=== PATIENT | male | born 1945 | race Caucasian/White ===

== ENCOUNTER 2022-03-27 08:41 | Outpatient (CLI) | payer MEDICARE, BC, SELFPAY | END 2022-03-27 08:42 | disposition home or self-care (01) | LOC: AMB 03-28 11:16 | PROVIDERS: PCP Family Medicine; Visit Provider Family Medicine | DX: R05.9 Cough, unspecified (principal) | CPT/HCPCS: A0425; A0427 ==

== ENCOUNTER 2024-01-20 06:52 | Emergency (ER) | payer MEDICARE, BC, SELFPAY ==
[2024-01-20 06:58] VITALS: BP 142/85; PULSE 78; RESP 18; TEMP 36.7; O2SAT 99; BMI 26.5
--- NOTE | 2024-01-20 07:07 | ED.GENADULT ---
HPI - General Adult General Chief complaint: Epistaxis/Nosebleed Stated complaint: Nose bleed Time Seen by Provider: 01/20/24 07:07 History of Present Illness HPI narrative: CC: Bilateral Nose Bleeds pt. with non traumatic nose bleed that started around 2300 last night . does have nose plugs in both nostrils. denies dizziness/ lightheadedness . 78-year-old man presenting to the emergency department with concern of nose bleed. Is anticoagulated with Coumadin. He is not feeling lightheaded or nauseated. No shortness of breath. Does not typically have trouble with nosebleeds. Has been using rolled up tissue in his nose. Has been bleeding on and off for about 7 hours now. Has not been able to sleep. Related Data Home Medications ?Medication ?Instructions ?Recorded ?Confirmed allopurinol 100 mg tablet 100 mg PO DAILY 01/20/24 01/20/24 dapagliflozin propanediol 5 mg 5 mg PO DAILY 01/20/24 01/20/24 tablet (Farxiga) losartan 25 mg tablet 25 mg PO DAILY 01/20/24 01/20/24 metoprolol succinate 100 mg 100 mg PO DAILY 01/20/24 01/20/24 tablet,extended release 24 hr potassium chloride 20 mEq 20 meq PO DAILY 01/20/24 01/20/24 tablet,extended release(part/cryst) rosuvastatin 10 mg tablet 10 mg PO HS 01/20/24 01/20/24 sertraline 50 mg tablet 50 mg PO DAILY 01/20/24 01/20/24 spironolactone 25 mg tablet 25 mg PO DAILY 01/20/24 01/20/24 torsemide 10 mg tablet 10 mg PO DIRECTED PRN 01/20/24 01/20/24 torsemide 5 mg tablet 5 mg PO DAILY 01/20/24 01/20/24 Previous Rx's ?Medication ?Instructions ?Recorded warfarin 2 mg tablet 2 mg PO QDAY #114 tabs 09/27/21 Allergies Allergy/AdvReac Type Severity Reaction Status Date / Time morphine Allergy Mild itchy Verified 01/20/24 07:04 latex Allergy Unknown Verified 01/20/24 07:04 OXYCODONE-ACETAMINOPHEN Allergy Intermediate increased Uncoded 09/27/21 11:51 anxiety Pain Meds AdvReac Mild anxious Uncoded 09/27/21 11:51 Review of Systems Status of ROS: Reports: 6 or more systems reviewed and unremarkable except as noted in History and below [facility] Medical History History of fracture of left ankle (2000) ?Z87.81 - Personal history of (healed) traumatic fracture (ICD-10) History of basal cell carcinoma (BCC) (07/17/18) ?Z85.828 - Personal history of other malignant neoplasm of skin (ICD-10) Surgical History History of umbilical hernia repair (04/15/15) ?Z98.890 - Other specified postprocedural states (ICD-10) ?Z87.19 - Personal history of other diseases of the digestive system (ICD-10) History of mitral valve repair (12/30/20) ?Z98.890 - Other specified postprocedural states (ICD-10) History of cholecystectomy ?Z90.49 - Acquired absence of other specified parts of digestive tract (ICD-10) Social History Smoking Status: Never smoker Second hand tobacco smoke exposure: No How often do you have a drink containing alcohol: never AUDIT-C Alcohol total score: 0 Non-prescribed substance use: denies use Exam Narrative: Exam Narrative: Pleasant. NAD. There is dried blood on his face and shirt. 2 rolled up tissue tampons placed; 1 each nostril. Oropharynx shows relatively fresh blood in posterior oropharynx. Removal of tampons cells left greater than right septum oozing. Difficult to assess clearly location. I think anterior. Const: Vital Signs, click to edit/add: Vital Signs - 24 hr 01/20/24 06:58 Temperature 98.0 F Pulse Rate [Right Pulse Oximeter] 78 Respiratory Rate 18 Blood Pressure [Ri ght Upper Arm] 142/85 H Pulse Oximetry 99 Oxygen Delivery Me thod Room Air Documenting provider has reviewed patient's vital signs: yes Course Vital Signs Vital signs: Initial Vital Signs Temperature 98.0 F 01/20/24 06:58 Temperature Source Temporal Artery Scan 01/20/24 06:58 Pulse Rate 78 01/20/24 06:58 Respiratory Rate 18 01/20/24 06:58 Blood Pressure 142/85 H 01/20/24 06:58 Blood Pressure Mean 104 01/20/24 06:58 Blood Pressure Position Sitting 01/20/24 06:58 Pulse Oximetry 99 01/20/24 06:58 Oxygen Delivery Method Room Air 01/20/24 06:58 Vital Signs Temperature 98.0 F 01/20/24 06:58 Pulse Rate 78 01/20/24 06:58 Respiratory Rate 18 01/20/24 06:58 Blood Pressure 142/85 H 01/20/24 06:58 Pulse Oximetry 99 01/20/24 06:58 Oxygen Delivery Method Room Air 01/20/24 06:58 Temperature 98.0 F 01/20/24 06:58 Pulse Rate 78 01/20/24 06:58 Respiratory Rate 18 01/20/24 06:58 Blood Pressure 142/85 H 01/20/24 06:58 Pulse Oximetry 99 01/20/24 06:58 Oxygen Delivery Method Room Air 01/20/24 06:58 Medications Administered Medications: Discontinued Medications Generic Name Dose Route Start Last Admin Trade Name Fide PRN Reason Stop Dose Admin Cocaine HCl 4 ml 01/20/24 07:11 01/20/24 07:49 Cocaine Hcl 4 % 4 Ml Solution NOSTRIL-B 01/20/24 07:12 4 ml ONCE ONE Administration Medical Decision Making MDM Narrative Medical decision making narrative: Placed cocaine soaked cotton balls into each nostril and with reassessment there is some broad erosion on the anterior left nasal septum and maybe a point of bleeding on the right side. Think would be best to place a Merocel packing. Placed cut down Merocel packing in the left nostril. Placed 1 more temporary cotton ball in the right. With reassessment I think bleeding has been controlled. Is not collecting quickly in the posterior oropharynx at least. Hemoglobin is good and INR however is subtherapeutic. Will adjust Coumadin dosing -- see discharge. All tolerated quite well. Given cotton balls and nose clamp on departure. See patient discharge plan for further discussion Lab Data Lab results reviewed: Yes I reviewed the patient's lab results Labs: Lab Results 01/20/24 Range/Units 07:50 Hgb 15.9 (13.5-17.5) gm/dL INR 1.29 H (0.91-1.10) Discharge Plan Discharge Clinical Impression: Epistaxis, Anticoagulated Additional Instructions: Your INR goal is 2-3. Today your INR is 1.3. If you have been taking your Coumadin regularly at 2 mg daily, please take an extra 2 mg for total of 4 mg this evening and continue taking 2 mg daily and recheck your INR in 1 week. Can remove this left side nasal packing in 3 days usually in a clinic visit. Can remove the cotton ball from the right side tomorrow. During the time that you have this kind of packing in, recommendations are often to take antibiotics to prevent secondary infection. Can belt picker some amoxicillin from [facility] in the lobby. Once you are through this recent bleeding problem, consider placing the white petroleum jelly I gave you into your nose to keep your nose moist through the winter. Otherwise consider sleeping under the mist of a cool mist humidifier. Prescriptions: No Action allopurinol 100 mg tablet 100 mg PO DAILY Patient Comments: TAKE TWO TABLETS BY MOUTH DAILY* dapagliflozin propanediol [Farxiga] 5 mg tablet 5 mg PO DAILY Patient Comments: TAKE ONE TABLET BY MOUTH ONE TIME DAILY* losartan 25 mg tablet 25 mg PO DAILY Patient Comments: [NO ORIGINAL SIG] metoprolol succinate 100 mg tablet extended release 24 hr 100 mg PO DAILY Patient Comments: [NO ORIGINAL SIG] potassium chloride 20 mEq tablet,ER particles/crystals 20 meq PO DAILY Patient Comments: TAKE 1/2 TABLET BY MOUTH DAILY rosuvastatin 10 mg tablet 10 mg PO HS Patient Comments: [NO ORIGINAL SIG] sertraline 50 mg tablet 50 mg PO DAILY Patient Comments: [NO ORIGINAL SIG] spironolactone 25 mg tablet 25 mg PO DAILY Patient Comments: TAKE ONE TABLET BY MOUTH EVERY DAY IN THE MORNING.* torsemide 10 mg tablet 10 mg PO DIRECTED PRN Patient Comments: TAKE ONE TABLET BY MOUTH DAILY NEEDED FOR WEIGHT GAIN OF 3LBS OVERNIGHT OR 5LBS OVER THE COURSE OF A WEEK torsemide 5 mg tablet 5 mg PO DAILY Patient Comments: [NO ORIGINAL SIG] warfarin 2 mg tablet 2 mg PO QDAY Qty: 114 0RF Protocol: Dose Management Condition: Saturday Dose/Route: 2 % Instruction: 1 x 2 % tablet Condition: Saturday Dose/Route: 4 % Instruction: 2 x 2 % tablets Condition: Saturday Dose/Route: 2 % Instruction: 1 x 2 % tablet Condition: Saturday Dose/Route: 4 % Instruction: 2 x 2 % tablets Condition: Dose/Route: 2 % Instruction: 1 x 2 % tablet Condition: Saturday Dose/Route: 4 % Instruction: 2 x 2 % tablets Condition: Saturday Dose/Route: 2 % Instruction: 1 x 2 % tablet Protocol Text: Adjustment Start Date: Saturday10/02/21 INR Value: 1.8 INR Date: 09/25/21 Recheck Date: 10/16/21 Rx Instructions: Archibald 2 MG, M 2 MG, Tu 4 MG, W 2 MG, Th 4 MG, F 2 MG, Sa 2 MG Follow Up/Referrals: Galen Flores MD [Staff Physician] - Stand Alone Forms: [employer] Info Instructions
[2024-01-20] MEDS: COCAINE HCL 4 % 4 ML SOLUTION NOSTRIL-B (07:49)
--- NOTE | 2024-01-20 07:50 | ED.NURSE ---
Cocaine HCL administered by Dr. Duke.
[2024-01-20 07:57] LABS: Hemoglobin* 15.9 gm/dL (13.5-17.5)
[2024-01-20 08:18] LABS: INR 1.29 (0.91-1.10); Prothrombin Time 16.9 Seconds
== END 2024-01-20 09:01 | disposition home or self-care (01) ==
PROVIDERS: Emergency Provider Family Medicine; PCP Internal Medicine
DX: R04.0 Epistaxis (principal); Z79.01 Long term (current) use of anticoagulants
CPT/HCPCS: 36415; 85018; 85610; 99283; 99284; A9270

== ENCOUNTER 2024-06-10 15:56 | Inpatient (IN) | payer MEDICARE, BC, SELFPAY ==
--- OUTSIDE RECORDS SUMMARY | 2024-06-10 15:58 | XMS_ITS | Continuity of Care Document ---
Author Organization [facility] Address [address] [address] [place] [address] Phone Care Team Providers Care Actuarial Internship Name Role Phone Jake Wiggins MD Unavailable Unavailable Procedures Procedure Date Init Hosp-da E&m Mod Severity 1 Advance Directives Directive Yes / No Effective Date File Name No Information Encounters Encounter Description Practice Location Reason(s) For Visit Diagnoses Date Provider Providers Copied on Encounter [facility], [address] [address], [place], [place], [id number], [place] tel:[phone] [facility] No Information 3 Feliciano Joseph. [address] [place] [address], [address], [id number] , [place]. [phone] [facility], [address] [address], [place], [place], [id number], [place] tel:[phone] [facility] Pancreas cyst 1 Jeana Oconnell. [address] [place] [address], [address], [id number] , [place]. tel:[phone] Init Hosp-da E&m Mod Severity [facility], [address] [address], [place], [place], [id number], [place] tel:[phone] [facility] No Information 1 Jeana Oconnell. [address] [place] [address], [address], [id number] , [place]. tel:[phone] Referring Provider: Dwain Frank, [address] [place] [address], [address]. tel:[phone] Family History Family Member Type Diagnosis Age [...]
--- OUTSIDE RECORDS SUMMARY | 2024-06-10 15:58 | XMS_ITS | Clinical Summary ---
Author Organization [facility] Address [address] [place] [address] Care Team Providers Care Blasting Helper Name Role Phone Clinic, [facility] [place] Unavailable [phone] Aiden Polanco MD Primary Care P rovider Allergies Active Allergy Reactions Criticality Noted Date Comments Morphine Itching 06/13/2006 Oxycodone-Acetaminophen Itching,Agitation 06/13 Medications calcium carbonate-vitam in D3, 600 mg-400 unit, 600 mg-10 mcg (400 unit) tabletIndicatio ns:Takes dietary supplements Take 1 Tablet by mouth two times daily with meals. 200 Tablet 4 12/20/19 22 Active geriatric multivitamin-ir on-minerals (GERITOL; CENTRUM SILVER) tablet Take 1 Tablet by mouth once daily. 0 03/26/19 23 Active durable medical equipment (DME)Indication s:Chronic atrial fibrillation (HC),Bilateral lower extremity edema Compression stockings. 16-20 mmHg. Knee high. 1 Each 04/02/19 23 Active spironolactone (ALDACTONE) 25 mg tabletIndicatio ns:Chronic systolic heart failure (HC) Take 1 Tablet (25 mg) by mouth once daily in the morning. 90 Tablet 01/10/20 24 Active rosuvastatin (CRESTOR) 10 mg tabletIndicatio ns:Coronary artery disease, unspecified vessel or lesion type, unspecified whether angina present, unspecified whether [place] or transplanted heart Take 1 Tablet (10 mg) by mouth at bedtime. 90 Tablet 3 01/10/20 24 Active sertraline (ZOLOFT) 50 mg tabletIndicatio ns:Depression, recurrent Take 1 Tablet (50 mg) by mouth once daily in the morning. 90 Tablet 3 01/10/20 24 Active torsemide (DEMADEX) 5 mg tabletIndicatio ns:Chronic systolic heart failure (HC) Take 1 Tablet (5 mg) by mouth once daily. Take 1 tablet every other day if no weight gain. If weight gain >2 lbs overnight or >4lbs in a week, start taking medication every day. 90 Tablet 01/10/20 24 Active metoprolol succinate (TOPROL XL) 50 mg sustained-relea se tabletIndicatio ns:Atrial fibrillation with RVR (HC) Take 1 Tablet (50 mg) by mouth once daily. 03/20/19 25 Active losartan (COZAAR) 25 mg tabletIndicatio ns:Chronic heart failure with preserved ejection fraction (HC) TAKE ONE TABLET BY MOUTH ONE TIME DAILY 90 Tablet 3 03/27/19 25 Active Farxiga 5 mg tabletIndicatio ns:Chronic systolic heart failure (HC) Take 1 Tablet (5 mg) by mouth once daily. 90 Tablet 05/04/19 25 Active warfarin (COUMADIN) 2 mg tabletIndicatio ns:Chronic atrial fibrillation (HC),Anticoagul ation monitoring, INR range 2-3 Take by mouth 3 mg (2 mg x 1.5) every Sun, Tue, Fri; 2 mg (2 mg x 1) all other days in the evening OR as directed 37 Tablet 05/12/19 25 Active allopurinoL (ZYLOPRIM) 100 mg tabletIndicatio ns:Gout, unspecified cause, unspecified chronicity, unspecified site TAKE 2 TABLETS (200 MG) BY MOUTH ONCE DAILY. 180 Tablet 3 10/04/19 24 2024 Discontinued(* Med complete/Regim en complete/Level of care change) potassium chloride (KLOR-CON M20) 20 mEq extended-releas e tablet (part/cryst) Take 10 mEq by mouth once daily. 10/01/19 24 2024 Discontinued(* Med complete/Regim en complete/Level of care change) warfarin (COUMADIN) 2 mg tabletIndicatio ns:Chronic atrial fibrillation (HC),Anticoagul ation monitoring, INR range 2-3 Take by mouth 3 mg (2 mg x 1.5) every Sun, Tue, Fri; 2 mg (2 mg x 1) all other days in the evening OR as directed 04/17/19 25 2024 Discontinued Active Problems Problem Noted Date Diagnosed Date Anticoagulation monitoring, INR range 2-3 2023 Moderate dementia, unspecifi ed dementia type, unspecified whether behavioral, psychotic, or mood disturbance or anxiety 05/07/2023 Hereditary hemochromatosis 08/06/2022 Chronic atrial fibrillation 01/20/2021 Assessment & Plan (04/02/2022 11:45 AM SEASONAL CLERK): Has had RVR recently. Cyst of pancreas 12/29/2020 Overview (12/19/2021): There is a low attenuating lesion in the body of the pancreas measuring 8 mm in diameter (image 296 of series 4), which may be a side branch intraductal papillary mucinous neoplasm (IPMN) or a simple cyst from CTA 12/21. GI recommends repeat pancreatic imaging in 1 year (12/29/20) Mitral regurgitation 12/27/2020 Chronic heart failure with preserved ejection fr action 12/27/2020 CKD (chronic kidney disease) stage 3, GFR 30-59 ml/min 12/27/2020 Hypertension Gout, unspecified Resolved Problems Problem Noted Date Diagnosed Date Resolved Date Elevated ferritin 06/25/2022 03/20/2024 Cognitive impairment 03/27/2022 025 Overview (03/28/2022): LACL administered with pt scoring 5.0 - this level is considered mild cognitive impairment. At this level [id number] problem solving is intact, they may have poor judgement with difficulty planning actions or anticipating mistakes. Decision making may be impulsive. At this level person may live alone with weekly checks on the environment to monitor safety and assess problem solving. At end of eval pt completed chair transfer, functional mobility in room to be seated EOB IND. 03/28/2022 Medication noncompliance due to cognitive impairment 03/27/2022 03/20/2024 Hyperkalemia 03/27/2022 03/20/2024 Protein-calorie malnutrition , unspecified severity 12/19/2021 03/20/2024 Anticoagulation monitoring, INR range 2-3 12/19/2021 09/06/2023 Abnormal weight loss 12/28/2020 025 Encounters Date Type Department Care Team Description 06/09/2024 Telephone [facility] [address] [place] [address] Aiden Polanco MD Form 05/12/2024 10:30 AM SEASONAL CLERK Office Visit [facility] [address] [place] [address] Allen Crowley MD Follow Up (Chronic heart failure with preserved ejection fraction ) 05/12/2024 Refill [facility] [address] [place] [address] Aiden Polanco MD Refill Request (Warfarin) 05/12/2024 Travel 05/08/2024 Telephone [facility] [address] [place] [address] Desirae Campos DO NOTES (VISIT NOTES) 05/03/2024 Refill [facility] [address] [place] [address] Aiden Polanco MD Refill Request (Farxiga) 04/17/2024 2:30 PM SEASONAL CLERK Orders Only [facility] [address] [place] [address] Lab, [facility] 04/17/2024 Anticoagulation (warfarin) [facility] [address] [place] [address] 1, [facility] Anticoagulation 04/17/2024 Travel 04/16/2024 Refill [facility] [address] [place] [address] Aiden Polanco MD Refill Request (Metoprolol Succinate) 04/03/2024 3:00 PM SEASONAL CLERK Orders Only [facility] [address] [place] [address] Lab, [place] [facility] 04/03/2024 Anticoagulation (warfarin) [facility] [address] [facility] [address] 1, [facility] Anticoagulation 04/03/2024 Travel 03/26/2024 Telephone [facility] [address] [facility] [address] Aiden Polanco MD Questions (last clinical notes) 03/24/2024 Refill [facility] [address] [facility] [address] Aiden Polanco MD Refill Request (Losartan) 03/21/2024 Anticoagulation (warfarin) [facility] [address] [facility] [address] 1, [facility] Anticoagulation 03/20/2024 1:00 PM SEASONAL CLERK Office Visit [facility] [address] [facility] [address] Aiden Polanco MD Follow Up; Immunization/Injectio n 03/20/2024 Travel from Last 3 Months Immunizations Immunization Administration Dates Next Due AMB Influenza, IIV3 (Age >=3 years)(Flu Clinic Only) 01/30/2008 Influenza RIV4 (Age 18+ Year s) PRESERV FREE 12/24/2018 Influenza, High-dose Inactivated 12/14/2016,01/16 Influenza, High-dose Quadriv alent Inactivated 01/12/2020 Influenza, IIV3 (Age 6-35 mos) 12/16/2012,2011 Influenza, IIV3 (Age >=3 years) 02/27/2007,02/21 Influenza, IIV4 01/03/2019 Influenza, Inactivated AIIV4 (Age 65+ Years) Preserv Free 02/13/2022,12/28/2020(Deferred: - undecided if he wants it right now.) Influenza, Inactivated IIV3 (Age 65+ Years) Preserv Free 03/20/2024 Pneumococcal Conj 20-valent (Prevnar 20) 03/22/2022 Pneumococcal Poly,23-Valent (Pneumovax) 08/28/2011 Pneumococcal conj 13-Valent (Prevnar 13) 11/25/2017 Td (Age >=7 Years) 10/04/1998 Td, Preservative Free (age > = 7 Years) 12/16/2000 Tdap 12/26/2019,09/22/2010 Zoster (Shingrix-RZV, recombinant) 10/07/2017, Zoster (Zostavax-ZVL, live) 09/28/2010 Family History Medical History Relation Name Comments Cancer Father metastasis to t he bone Relation Name Status Comments Father Social History Tobacco Use Types Packs/Day Years Used Date Smoking Tobacco: Never Passive Smoke Exposure: Never Smokeless Tobacco: Never Tobacco Cessation:Counseling Given: Yes Alcohol Use Standard Drinks/Week Comments Not Currently 0 (1 standard drink = 0.6 oz pur e alcohol) PHQ-2 Answer Date Recorded PHQ-2 TOTAL SCORE 4 05/07/2023 Social Connections Answer Date Recorded Do you often feel lonely or isolated from those around you? 0 11/05/2023 Financial Resource Strain Answer Date R ecorded Difficulty of Paying Living Expenses 3 11/05/2023 Difficulty of Paying Living Expenses Not on file 11/05/2023 Food Insecurity Answer Date Recorded Do you worry your food will run out before you are able to buy more? 1 11/05/2023 Transportation Needs Answer Date Record ed Does lack of transportation keep you from medica l appointments? 1 11/05/2023 Does lack of transportation keep you from work, meetings or getting things that you need? 1 11/05/2023 Housing Stability Answer Date Recorded What is your housing situation today? 1 11/05/2023 Utilities Answer Date Recorded Do you have trouble paying f or utilities (for example, heat, electricity, water, phone)? 1 11/05/2023 Sex and Gender Information Value Date Recorded Sex Assigned at Not on file Legal Sex Male 6:14 AM SEASONAL CLERK Gender Identity Not on file Sexual Orientation Not on file Obstetrics History Last Filed Vital Signs Vital Sign Reading Time Taken Comments Blood Pressure 105/69 05/12/2024 10:32 AM SEASONAL CLERK Pulse 83 05/12/2024 10:32 AM SEASONAL CLERK Temperature 35.3 C (95.6 F) 04/24/2022 3:51 PM SEASONAL CLERK Respiratory Rate 14 04/24/2022 2:23 PM SEASONAL CLERK Oxygen Saturation 95% 05/12/2024 10:32 AM SEASONAL CLERK Inhaled Oxygen Concentration - - Weight 83.9 kg (185 lb) 05/12/2024 10:32 AM SEASONAL CLERK Height 177.8 cm (5' 10) 05/07/2023 2:42 PM SEASONAL CLERK Body Mass Index 26.54 05/07/2023 2:42 PM SEASONAL CLERK Plan of Treatment Upcoming Encounters Date Type Department Care Team (Late st Contact Info) Description 06/16/2024 2:00 PM CDT Orders Only [facility] [address] [place] [address] Lab, [place] 06/29/2024 1:25 PM CDT Office Visit [facility] [address] [place] [address] Aiden Polanco MD [address] [place] [address] Health Maintenance Due Date Last Done Comments RSV vaccine for adults or (1 - 1-dose 75+ series) 2021 COVID-19 vaccine series ( season) 2023 06/18/2020, 05/28/2020 BMI (ht and wt on same day) for age 18+ 05/07/2024 05/07/2023, 04/16/2023, 02/11/2023, Additional history exists Medicare Wellness for age 65+ 05/07/2024 05/07/2023, 03/22/2022 Depression screening for age 12+ 05/09/2024 05/09/2023, 05/07/2023, 05/07/2023, Additional history exists Tetanus booster 12/25/2029 12/26/2019, 10/2010, 12/16/2000, Additional history exists Zoster (shingles) series for age 50+ Completed 10/07/2017, 07/18/2017, 09/28/2010 Tdap Completed 12/26/2019, 09/22/2010 Hepatitis C screening for ag e 18-79 Completed 03/22/2022 Pneumococcal series for age 50+ Completed 03/22/2022, 11/25/2017, 08/28/2011 Influenza Vaccine Completed 03/20/2024, , 01/03/2019, Additional history exists Procedures Procedure Name Priority Date/Time Associated Diagnosis Comments PROTIME-INR Routine 04/17/2024 2:12 PM SEASONAL CLERK Chronic atrial fibrillation (HC) Anticoagulation monitoring, INR range 2-3 INR,POCT Routine 04/03/2024 4:10 PM SEASONAL CLERK Chronic atrial fibrillation (HC) Anticoagulation monitoring, INR range 2-3 VITAMIN B12 Routine 03/20/2024 2:03 PM SEASONAL CLERK Cognitive decline BASIC METABOLIC PANEL Routine 03/20/2024 2:03 PM SEASONAL CLERK Chronic systolic heart failure (HC) TSH WITH REFLEX Routine 03/20/2024 2:03 PM SEASONAL CLERK Cognitive decline Unspecified symptoms and signs involving cognitive functions and awareness PROTIME-INR Routine 03/20/2024 2:02 PM SEASONAL CLERK Chronic atrial fibrillation (HC) Anticoagulation monitoring, INR range 2-3 LC HCV ANTIBODY RFX TO QUANT PCR Routine 03/22/2022 11:13 AM SEASONAL CLERK Need for hepatitis C screening test from Last 3 Months or Most Recently Relevant to Health Maintenance Results * (ABNORMAL) PROTIME-INR [[id number]] - Standing Order (04/17/2024 2:12 PM SEASONAL CLERK) Only the most recent of2 resultswithin the time period is included. INR 1.7(H) <1.3 04/17/2024 2:50 PM [facility] PROTIME 19.9(H) 10.6 - 12.4 sec 04/17/2024 2:50 PM [facility] Blood BLOOD SPECIMEN / Unknown [facility] / Unknown 04/17/2024 2:12 PM SEASONAL CLERK 04/17/2024 2:32 PM SEASONAL CLERK [facility] - 04/17/2024 2:50 PM SEASONAL CLERK Therapeutic Range 2.0-3.0 for most anticoagulated patients 2.5-3.5 or 4.0 for high risk patients The INR is only used for patients on stable oral anticoagulant therapy. It makes no significant contribution to the diagnosis or treatment of patients whose Protime is prolonged for other reasons. INR results are increased when heparin levels exceed 1.0 U/mL, which corresponds to an aPTT >125 seconds if the patient is on UFH. Aiden Polanco MD HEMATOLOGY Final Result Performing Organization Address City/[facility]/ZIP Co de Phone Number [facility] [address] [place] [address] * (ABNORMAL) INR - POCT [[id number]] - Standing Order (04/03/2024 4:10 PM SEASONAL CLERK) Pathologist [facility] INR 1.4(H) ratio [facility] Comment: INRs >2.9 may be falsely elevated in patients receiving either unfractionated Heparin or Low Molecular Weight Heparin. Follow up testing in a hospital laboratory may be helpful if clinically indicated. INR results of > or = 5.0 should be verified using the standard venipuncture procedure. Reference Range 0.9-1.1 Moderate-intensity Warfarin Therapy 2.0-3.0 Higher-intensity Warfarin Therapy 3.0-4.0 PROTHROMBIN TIMEP 16.9(H) 10.5 - 13.[address] [facility] Comment: Point of care fingerstick Prothrombin Time/INR results may vary from venous Prothrombin Time/INR methodologies. Any results exhibiting inconsistency with the patient's clinical status should be repeated using a venous Prothrombin Time/INR method. Blood BLOOD SPECIMEN / Unknown 04/03/2024 4:10 PM SEASONAL CLERK 04/03/2024 4:12 PM SEASONAL CLERK Aiden Polanco MD LABORATORY Final Result Performing Organization Address City/[facility]/ZIP Co de Phone Number [facility] [address] [place] [address], [place] [phone] [facility] [address] [place] [address] * TSH WITH REFLEX (03/20/2024 2:03 PM SEASONAL CLERK) TSH W/REFLEX TO FT4 2.54 0.40 - 4.50 mIU/L [facility] Blood BLOOD SPECIMEN / Unknown 03/20/2024 2:03 PM SEASONAL CLERK 03/20/2024 2:03 PM SEASONAL CLERK Aiden Polanco MD CHEMISTRY Final Result [employer] [address] [facility] [address] [place] [phone], [place] [phone] [facility] [address] [place] [address] * VITAMIN B12 (03/20/2024 2:03 PM SEASONAL CLERK) [facility] VITAMIN B12 686 200 - 1,100 pg/mL [facility] Blood BLOOD SPECIMEN / Unknown 03/20/2024 2:03 PM SEASONAL CLERK 03/20/2024 2:03 PM SEASONAL CLERK Aiden Polanco MD CHEMISTRY Final Result Performing Organization Address City/[facility]/ZIP Co de Phone Number [employer] [address] [facility] [address] [place] [phone], [facility] [address] [place] [phone] * BASIC METABOLIC PANEL (03/20/2024 2:03 PM SEASONAL CLERK) [facility] GLUCOSE 77 65 - 99 mg/dL [facility] Comment: Fasting reference interval UREA NITROGEN (BUN) 20 7 - 25 mg/dL [facility] CREATININE 1.22 0.70 - 1.28 mg/dL [facility] EGFR 61 > OR = 60 mL/min/1. 73m2 [facility] BUN/CREATININE RATIO SEE NOTE: 6 (calc) [facility] Comment: Not Reported: BUN and Creatinine are within reference range. SODIUM 142 135 - 146 mmol/L [facility] POTASSIUM 4.7 3.5 - 5.3 mmol/L [facility] CHLORIDE 107 98 - 110 mmol/L [facility] CARBON DIOXIDE 24 20 - 32 mmol/L [facility] ELECTROLYTE BALANCE 11 7 - 17 mmol/L (calc) [facility] CALCIUM 9.4 8.6 - 10.3 mg/dL [facility] Blood BLOOD SPECIMEN / Unknown 03/20/2024 2:03 PM SEASONAL CLERK 03/20/2024 2:03 PM SEASONAL CLERK us Aiden Polanco MD CHEMISTRY Final Result [employer] [address] [facility] [address] [place] [address], [facility] [address] [place] [address] * LC HCV ANTIBODY RFX TO QUANT PCR (03/22/2022 11:13 AM SEASONAL CLERK) HCV Ab <0.1 0.0 - 0.9 s/co ratio 03/24/2022 2:07 PM SEASONAL CLERK [facility] Blood BLOOD SPECIMEN / Unknown Venipuncture / Unknown 03/22/2022 11:13 AM SEASONAL CLERK 03/22/2022 11:16 AM SEASONAL CLERK Narrative [facility] - 03/24/2022 2:07 PM SEASONAL CLERK Performed at: [address] [place] [id number] Anodizing Line Operator: Hany Tello MD, Phone: [phone] us Desirae Campos DO LABORATORY Final Result [facility] [address] [place] [id number], from Last 3 Months or Most Recently Relevant to Health Maintenance Insurance MEDICARE PB ONLY MEDICARE PART B HB ONLY MEDICARE PART A HB ONLY [facility] FED EMP MEDICARE PPS Advance Directives Documents on File Type Date Recorded 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 POLST 04/06/2022 1:45 PM POLST Healthcare Directive 04/06/2022 ASHLEY VELA, 04/06/2022 * Full Code (Latest Code Status on File) Date Activated Date Inactivated Comments 03/27/2022 4:16 PM 03/28/2022 3:09 PM Question Answer Comments Code Status Discussion: Unable to Assess Preferences, Provider to review later * Full Code Date Activated Date Inactivated Comments 05/17/2021 1:56 PM 05/18/2021 2:17 AM Question Answer Comments Code Status Discussion: Reviewed Preferences * Full Code Date Activated Date Inactivated Comments 01/20/2021 4:45 PM 01/21/2021 3:13 PM Question Answer Comments Code Status Discussion: Reviewed Preferences * Full Code Date Activated Date Inactivated Comments 12/27/2020 9:55 PM 01/01/2021 3:07 PM Question Answer Comments Code Status Discussion: Per Existing Order * Full Code Date Activated Date Inactivated Comments 12/21/2020 12:46 PM 12/22/2020 2:28 AM Question Answer Comments Code Status Discussion: Not Discussed Care Teams Blasting Helper Relationship Specialty Start Date End Date Aiden Polanco MD [address] [place] [address] PCP - General Family Practice 01/10/24 [facility], [facility] [address] [address] Cardiology - CHF 02/11/23
[2024-06-10 16:06] VITALS: BP 121/86; PULSE 96; RESP 18; TEMP 36.4; O2SAT 96; BMI 24.4
--- NOTE | 2024-06-10 16:43 | CRLHL7_ITS ---
For Patients: As a result of the Century Cures Act, medical imaging exams and procedure reports are released immediately into your electronic medical record. You may view this report before your referring provider. If you have questions, please contact your health care provider. CLINICAL HISTORY: Left-sided facial droop. TECHNIQUE: Standard helical CT image acquisition through the head following the administration of intravenous contrast was performed. 3D and MIP reconstructions were performed at a separate workstation and permanently archived. COMPARISON: None available. FINDINGS: No intracranial proximal large vessel occlusion or flow-limiting luminal stenosis. No evidence of cerebral aneurysm. No findings to suggest an arterial-venous shunting lesion. The major dural venous sinuses and deep venous system are patent. IMPRESSION: No intracranial proximal large vessel occlusion, flow-limiting luminal stenosis, or cerebral aneurysm. Please note that all CT scans at this facility use dose modulation, iterative reconstruction, and/or weight-based dosing when appropriate to reduce radiation dose to as low as reasonably achievable. Dictated by Esteban Koroma MD @ 06/11/2024 10:53:38 AM (Electronically Signed)
--- NOTE | 2024-06-10 16:43 | CRLHL7_ITS ---
For Patients: As a result of the Century Cures Act, medical imaging exams and procedure reports are released immediately into your electronic medical record. You may view this report before your referring provider. If you have questions, please contact your health care provider. Indication: Left-sided facial droop. Technique: Noncontrast sagittal T1 weighted, axial FLAIR, axial T2 weighted, and axial diffusion weighted sequences are provided. Comparison: No prior studies available for comparison at this institution. Findings: Small focus of diffusion restriction in the right frontal lobe centrum semiovale compatible with acute ischemic infarct. Additional larger region of gyriform diffusion restriction in the lateral right frontal lobe involving the operculum and right insular cortex compatible with acute subacute ischemic infarcts. Moderate generalized parenchymal volume loss. The pituitary gland, optic chiasm, pineal gland, and cerebellar tonsils are unremarkable. Moderate chronic small vessel white matter ischemic changes. The midline structures are centrally located with no evidence of shift. There are no suspicious intra or extra-axial fluid collections. Expected flow voids in the cavernous carotids and basilar artery. Well-circumscribed 2 centimeter oval structure in the left posterior occipital scalp likely represents incidental epidermal inclusion cyst. No pathologic susceptibility artifacts. Mild polypoid mucosal thickening in the maxillary sinuses. Impression: 1. Small acute ischemic infarct in the right frontal lobe centrum semiovale. Additional larger region of subacute ischemia in the cortex of the right frontal lobe involving the operculum and right insular cortex. 2. 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 3. Moderate generalized parenchymal volume loss. Moderate chronic small vessel white matter ischemic changes. Dictated by Ramana Harrison MD @ 06/10/2024 6:43:13 PM (Electronically Signed)
--- NOTE | 2024-06-10 16:43 | CRLHL7_ITS ---
For Patients: As a result of the Century Cures Act, medical imaging exams and procedure reports are released immediately into your electronic medical record. You may view this report before your referring provider. If you have questions, please contact your health care provider. INDICATION: LEFT SIDED FACIAL DROOP, UNKNOWN LAST WELL TECHNIQUE: CT of the head without contrast. Coronal and sagittal reformats. Bone and soft tissue algorithms. COMPARISON: MRI 06/10/2024 FINDINGS: No acute intracranial hemorrhage or extra-axial collection. No evidence of acute cortical infarction. Chronic lacunar infarcts in the left inferior cerebellum. No mass effect or midline shift. Mild generalized parenchymal volume loss. Mild regions of decreased attenuation within the periventricular and subcortical white matter of both cerebral hemispheres most likely reflect chronic microvascular ischemic disease and age related change in this patient. Vascular calcifications within the carotid siphons. Orbital contents are normal. No calvarial fractures. No lytic or sclerotic osseous lesions within the calvarium or skull base. Scalp and other imaged soft tissue structures are normal. Mastoid air cells are clear. Incidental peripherally calcified left occipital scalp lesion most compatible with epidermal inclusion cyst. IMPRESSION: 1. No acute intracranial abnormality. The known acute ischemic infarcts in the right frontal lobe and right insular cortex are not evident on the noncontrast CT due to differences in modality. 2. Moderate parenchymal volume loss and chronic small vessel ischemic changes. 3. Chronic lacunar infarcts in the left inferior cerebellum. Please note that all CT scans at this facility use dose modulation, iterative reconstruction, and/or weight-based dosing when appropriate to reduce radiation dose to as low as reasonably achievable. Dictated by Ramana Harrison MD @ 06/10/2024 6:57:13 PM (Electronically Signed)
--- OUTSIDE RECORDS SUMMARY | 2024-06-10 16:54 | XMS_ITS | Continuity of Care Document ---
Author Organization [facility] Address [address] [address] [place] [address] Phone Care Team Providers Care Energy Advisor Name Role Phone Jake Wiggins MD Unavailable Unavailable Procedures Procedure Date Init Hosp-da E&m Mod Severity 1 Advance Directives Directive Yes / No Effective Date File Name No Information Encounters Encounter Description Practice Location Reason(s) For Visit Diagnoses Date Provider Providers Copied on Encounter [facility], [address] [address], [place], [place], [id number], [place] tel:[phone] [facility] No Information 3 Feliciano Joseph. [address] [place] [address], [address], [id number] , [place]. [phone] [facility], [address] [address], [place], [place], [id number], [place] tel:[phone] [facility] Pancreas cyst 1 Jeana Oconnell. [address] [place] [address], [address], [id number] , [place]. tel:[phone] Init Hosp-da E&m Mod Severity [facility], [address] [address], [place], [place], [id number], [place] tel:[phone] [facility] No Information 1 Jeana Oconnell. [address] [place] [address], [address], [id number] , [place]. tel:[phone] Referring Provider: Dwain Frank, [address] [place] [address], [address]. tel:[phone] Family History Family Member Type Diagnosis Age At Onset No Information Payers Payer name Insurance type Covered republican ID Authoriza tion(s) No Information Social History [...]
--- OUTSIDE RECORDS SUMMARY | 2024-06-10 16:55 | XMS_ITS | Clinical Summary ---
Author Organization [facility] Address [address] [place] [address] Care Team Providers Care Dry Press Operator Helper Name Role Phone Clinic, [facility] [place] Unavailable [phone] Aiden Polanco MD Primary Care P [...] type, unspecified whether angina present, unspecified whether ely shoshone or transplanted heart Take 1 Tablet (10 [...] 01/20/2021 Assessment & Plan (04/02/2022 11:45 AM TRADITIONAL [facility] PRACTITIONER): Has had RVR recently. Cyst of pancreas [...] considered mild cognitive impairment. At this level [id number] problem solving is intact, they may have [...] Type Department Care Team Description 06/09/2024 Telephone [facility] [address] [place] [address] Aiden Polanco MD Form 05/12/2024 10:30 AM TRADITIONAL [facility] PRACTITIONER Office Visit [facility] [address] [place] [address] Allen Crowley MD Follow Up (Chronic heart failure with preserved ejection fraction ) 05/12/2024 Refill [facility] [address] [place] [address] Aiden Polanco MD Refill Request (Warfarin) 05/12/2024 Travel 05/08/2024 Telephone [facility] [address] [place] [address] Desirae Campos DO NOTES (VISIT NOTES) 05/03/2024 Refill [facility] [address] [place] [address] Aiden Polanco MD Refill Request (Farxiga) 04/17/2024 2:30 PM TRADITIONAL [facility] PRACTITIONER Orders Only [facility] [address] [place] [address] Lab, [facility] 04/17/2024 Anticoagulation (warfarin) [facility] [address] [place] [address] 1, [facility] Anticoagulation 04/17/2024 Travel 04/16/2024 Refill [facility] [address] [place] [address] Aiden Polanco MD Refill Request (Metoprolol Succinate) 04/03/2024 3:00 PM TRADITIONAL [facility] PRACTITIONER Orders Only [facility] [address] [place] [address] Lab, [place] [facility] 04/03/2024 Anticoagulation (warfarin) [facility] [address] [facility] [address] 1, [facility] Anticoagulation 04/03/2024 Travel 03/26/2024 Telephone [facility] [address] [facility] [address] Aiden Polanco MD Questions (last clinical notes) 03/24/2024 Refill [facility] [address] [facility] [address] Aiden Polanco MD Refill Request (Losartan) 03/21/2024 Anticoagulation (warfarin) [facility] [address] [place] [address] 1, [facility] Anticoagulation 03/20/2024 1:00 PM TRADITIONAL [facility] PRACTITIONER Office Visit [facility] [address] [facility] [address] Aiden Polanco MD Follow Up; Immunization/Injectio n [...] on file Legal Sex Male 6:14 AM TRADITIONAL [facility] PRACTITIONER Gender Identity Not on file Sexual Orientation Not on file Obstetrics History Last Filed Vital Signs Vital Sign Reading Time Taken Comments Blood Pressure 105/69 05/12/2024 10:32 AM TRADITIONAL [facility] PRACTITIONER Pulse 83 05/12/2024 10:32 AM TRADITIONAL [facility] PRACTITIONER Temperature 35.3 C (95.6 F) 04/24/2022 3:51 PM TRADITIONAL [facility] PRACTITIONER Respiratory Rate 14 04/24/2022 2:23 PM TRADITIONAL [facility] PRACTITIONER Oxygen Saturation 95% 05/12/2024 10:32 AM TRADITIONAL [facility] PRACTITIONER Inhaled Oxygen Concentration - - Weight 83.9 kg (185 lb) 05/12/2024 10:32 AM TRADITIONAL [facility] PRACTITIONER Height 177.8 cm (5' 10) 05/07/2023 2:42 PM TRADITIONAL [facility] PRACTITIONER Body Mass Index 26.54 05/07/2023 2:42 PM TRADITIONAL [facility] PRACTITIONER Plan of Treatment Upcoming Encounters Date Type Department Care Team (Late st Contact Info) Description 06/16/2024 2:00 PM CDT Orders Only [facility] [address] [place] [address] [place] 06/29/2024 1:25 PM CDT Office Visit [facility] [address] [place] [address] Aiden Polanco MD [address] [place] [address] Health Maintenance Due Date Last Done Comments [...] Diagnosis Comments PROTIME-INR Routine 04/17/2024 2:12 PM TRADITIONAL [facility] PRACTITIONER Chronic atrial fibrillation (HC) Anticoagulation monitoring, INR range 2-3 INR,POCT Routine 04/03/2024 4:10 PM TR[employer]ITIONAL [facility] PRACTITIONER Chronic atrial fibrillation (HC) Anticoagulation monitoring, INR range 2-3 VITAMIN B12 Routine 03/20/2024 2:03 PM TRADITIONAL [facility] PRACTITIONER Cognitive decline BASIC METABOLIC PANEL Routine 03/20/2024 2:03 PM TRADITIONAL [facility] PRACTITIONER Chronic systolic heart failure (HC) TSH WITH REFLEX Routine 03/20/2024 2:03 PM TRADITIONAL [facility] PRACTITIONER Cognitive decline Unspecified symptoms and signs involving cognitive functions and awareness PROTIME-INR Routine 03/20/2024 2:02 PM TRADITIONAL [facility] PRACTITIONER Chronic atrial fibrillation (HC) Anticoagulation monitoring, INR range 2-3 LC HCV ANTIBODY RFX TO QUANT PCR Routine 03/22/2022 11:13 AM TRADITIONAL [facility] PRACTITIONER Need for hepatitis C screening test from Last 3 Months or Most Recently Relevant to Health Maintenance Results * (ABNORMAL) PROTIME-INR [[id number]] - Standing Order (04/17/2024 2:12 PM TRADITIONAL [facility] PRACTITIONER) Only the most recent of2 resultswithin the time period is included. INR 1.7(H) <1.3 04/17/2024 2:50 PM [facility] PROTIME 19.9(H) 10.6 - 12.4 sec 04/17/2024 2:50 PM [facility] Blood BLOOD SPECIMEN / Unknown [facility] / Unknown 04/17/2024 2:12 PM TRADITIONAL [facility] PRACTITIONER 04/17/2024 2:32 PM TRADITIONAL [facility] PRACTITIONER [facility] - 04/17/2024 2:50 PM TRADITIONAL [facility] PRACTITIONER Therapeutic Range 2.0-3.0 for most anticoagulated patients [...] MD HEMATOLOGY Final Result Performing Organization Address City/[facility]/ZIP Co de Phone Number [facility] [address] [place] [address] * (ABNORMAL) INR - POCT [[id number]] - Standing Order (04/03/2024 4:10 PM TRADITIONAL [facility] PRACTITIONER) Pathologist [facility] INR 1.4(H) ratio [facility] Comment: INRs >2.9 may be falsely elevated [...] TIMEP 16.9(H) 10.5 - 13.[address] [facility] Comment: Point of care fingerstick Prothrombin Time/INR results may vary from venous Prothrombin Time/INR methodologies. Any results exhibiting inconsistency with the patient's clinical status should be repeated using a venous Prothrombin Time/INR method. Blood BLOOD SPECIMEN / Unknown 04/03/2024 4:10 PM TRADITIONAL [facility] PRACTITIONER 04/03/2024 4:12 PM TRADITIONAL [facility] PRACTITIONER Aiden Polanco MD LABORATORY Final Result Performing Organization Address City/[facility]/ZIP Co de Phone Number [facility] [address] [place] [address], [place] [phone] [facility] [address] [place] [address] * TSH WITH REFLEX (03/20/2024 2:03 PM TRADITIONAL [facility] PRACTITIONER) TSH W/REFLEX TO FT4 2.54 0.40 - 4.50 mIU/L [facility] Blood BLOOD SPECIMEN / Unknown 03/20/2024 2:03 PM TRADITIONAL [facility] PRACTITIONER 03/20/2024 2:03 PM TRADITIONAL [facility] PRACTITIONER Aiden Polanco MD CHEMISTRY Final Result [employer] [facility] [address] [place] [phone], [place] [phone] [facility] [address] [place] [address] * VITAMIN B12 (03/20/2024 2:03 PM TRADITIONAL [facility] PRACTITIONER) [facility] VITAMIN B12 686 200 - 1,100 pg/mL [facility] Blood BLOOD SPECIMEN / Unknown 03/20/2024 2:03 PM TRADITIONAL [facility] PRACTITIONER 03/20/2024 2:03 PM TRADITIONAL [facility] PRACTITIONER Aiden Polanco MD CHEMISTRY Final Result Performing Organization Address City/[facility]/ZIP Co de Phone Number [employer] [facility] [address] [place] [phone], [facility] [address] [place] [phone] * BASIC METABOLIC PANEL (03/20/2024 2:03 PM TRADITIONAL [facility]I HE[facility] PRACTITIONER) [facility] GLUCOSE 77 65 - 99 mg/dL [...] BLOOD SPECIMEN / Unknown 03/20/2024 2:03 PM TRADITIONAL [facility] PRACTITIONER 03/20/2024 2:03 PM TRADITIONAL [facility] PRACTITIONER us Aiden Polanco MD CHEMISTRY Final Result [employer] [facility] [address] [place] [address], [employer] [address] [place] [address] * LC HCV ANTIBODY RFX TO QUANT PCR (03/22/2022 11:13 AM TRADITIONAL [facility] PRACTITIONER) HCV Ab <0.1 0.0 - 0.9 s/co ratio 03/24/2022 2:07 PM TRADITIONAL [facility] PRACTITIONER [facility] Blood BLOOD SPECIMEN / Unknown Venipuncture / Unknown 03/22/2022 11:13 AM TRADITIONAL [facility] PRACTITIONER 03/22/2022 11:16 AM TRADITIONAL [facility] PRACTITIONER Narrative [facility] - 03/24/2022 2:07 PM TRADITIONAL [facility] PRACTITIONER Performed at: [address] [place] [id number] Tool Programmer: Hany Tello MD, Phone: [phone] us Desirae Campos DO LABORATORY Final Result [facility] [address] [place] [address], from Last 3 Months or Most Recently Relevant to Health Maintenance Insurance MEDICARE PB ONLY MEDICARE PART B HB ONLY MEDICARE PART A HB ONLY [facility] FED EMP MEDICARE PPS Advance Directives Documents on File Type Date Recorded 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
[2024-06-10 17:14] LABS: Creatinine, Point-of-Care* 1.4 mg/dl (0.6-1.3)
[2024-06-10 17:22] LABS: Basophils Absolute Auto 0.01 K/uL (0.00-0.30); Basophils Percent Auto 0.1 % (0.0-3.0); Eosinophils Absolute Auto 0.09 K/uL (0.00-0.50); Eosinophils Percent Auto 1.3 % (0.0-7.0); Hematocrit 50.1 % (37.0-53.0); Hemoglobin* 16.4 gm/dL (13.5-17.5); Immature Granulocytes Abs Auto 0.01 K/uL (0.00-0.30); Immature Granulocytes Pct Auto 0.1 %; Lymphocytes Percent Auto 17.5 % (20-44); Mean Corpuscular HGB Conc 33 gm/dL (32-36); Mean Corpuscular Hemoglobin 34 pg (26-34); Mean Corpuscular Volume 105 fL (80-100); Monocytes Percent Auto 11.5 % (0.0-11.0); Neutrophils Absolute Auto 4.87 K/uL (1.7-7.0); Neutrophils Percent Auto 69.5 % (42.0-72.0); Platelet Count* 175 K/uL (140-440); RDW Coefficient of Variation % 13.8 % (11.5-15.5); Red Blood Count 4.77 m/uL (4.30-5.90); White Blood Count* 7.02 K/uL (4.50-11.00)
[2024-06-10 17:24] LABS: Slide Review Reflex No
[2024-06-10 17:29] LABS: Albumin* 4.3 g/dL (3.3-5.0); Chloride* 104 mmol/L (96-114); Potassium* 5.1 mmol/L (3.6-5.1); Sodium* 140 mmol/L (135-149)
[2024-06-10 17:32] LABS: Alanine Aminotransferase* 30 U/L (4-50); Alkaline Phosphatase* 89 U/L (40-150); Anion Gap 8 mEq/L (7-15); Aspartate Amino Transferase* 56 U/L (12-35); Bilirubin Total* 1.6 mg/dL (0.1-1.5); Blood Urea Nitrogen* 35 mg/dL (7-30); Calcium* 9.4 mg/dL (8.4-10.6); Carbon Dioxide* 28 mmol/L (20-32); Creatinine* 1.2 mg/dL (0.5-1.5); Est. Creatinine Clearance* 53.23; Estimated Glomerular Filt Rate 62 ml/min; Glucose* 83 mg/dL (60-115)
[2024-06-10 17:33] LABS: Magnesium* 2.2 mg/dL (1.5-2.6)
[2024-06-10 17:44] LABS: Troponin I* 0.03 ng/mL (0.01-0.04)
[2024-06-10 17:53] LABS: PCR FLU A Negative PCR FLU A (Negative); PCR FLU B Negative PCR FLU B (Negative); PCR RSV Negative PCR RSV (Negative); SARS PCR* Negative SARS-CoV-2 (Negative)
--- NOTE | 2024-06-10 18:31 | ED_ITS ---
HPI - General Adult General Date Seen: 06/10/24 Chief complaint: Dizziness/Vertigo Stated complaint: Slurred speech Time Seen by Provider: 06/10/24 16:43 Source: patient and family Mode of arrival: ambulatory Limitations: no limitations History of Present Illness HPI narrative: patient is a 78-year-old male some mild memory issues presenting to the emergency department with his family for left-sided facial droop and difficulty speaking. His daughter states she called him around 14:45 in that time noticed there was some issues with his speech was more garbled compared to normal. They went to go check on him and noticed a left-sided facial droop. He was last seen normal yesterday. They are unsure when the symptoms started. He only states around 10:00 today he notice some slight dizziness. He denies any chest pain, shortness of breath, fevers, chills, vision changes, headache, weakness, numbness. No history of strokes in the past. Is on warfarin for AFib. Also has a history of her CHF. Patient lives home alone. No other issues noted at this time Related Data Home Medications ?Medication ?Instructions ?Recorded ?Confirmed allopurinol 100 mg tablet 100 mg PO DAILY 01/20/24 06/10/24 dapagliflozin propanediol 5 mg 5 mg PO DAILY 01/20/24 06/10/24 tablet (Farxiga) losartan 25 mg tablet 25 mg PO DAILY 01/20/24 06/10/24 metoprolol succinate 100 mg 100 mg PO DAILY 01/20/24 06/10/24 tablet,extended release 24 hr potassium chloride 20 mEq 20 meq PO DAILY 01/20/24 06/10/24 tablet,extended release(part/cryst) rosuvastatin 10 mg tablet 10 mg PO HS 01/20/24 06/10/24 sertraline 50 mg tablet 50 mg PO DAILY 01/20/24 06/10/24 spironolactone 25 mg tablet 25 mg PO DAILY 01/20/24 06/10/24 torsemide 10 mg tablet 10 mg PO DIRECTED PRN 01/20/24 06/10/24 torsemide 5 mg tablet 5 mg PO DAILY 01/20/24 01/20/24 Previous Rx's ?Medication ?Instructions ?Recorded warfarin 2 mg tablet 2 mg PO QDAY #114 tabs 09/27/21 Allergies Allergy/AdvReac Type Severity Reaction Status Date / Time morphine Allergy Mild itchy Verified 06/10/24 18:42 latex Allergy Unknown Verified 06/10/24 18:42 OXYCODONE-ACETAMINOPHEN Allergy Intermediate increased Uncoded 06/10/24 18:42 anxiety Pain Meds AdvReac Mild anxious Uncoded 06/10/24 18:42 Review of Systems Status of ROS: Reports: 10 or more systems reviewed and unremarkable except as noted in History and below [facility] Medical History History of fracture of left ankle (2000) ?Z87.81 - Personal history of (healed) traumatic fracture (ICD-10) History of basal cell carcinoma (BCC) (07/17/18) ?Z85.828 - Personal history of other malignant neoplasm of skin (ICD-10) Surgical History History of umbilical hernia repair (04/15/15) ?Z98.890 - Other specified postprocedural states (ICD-10) ?Z87.19 - Personal history of other diseases of the digestive system (ICD-10) History of mitral valve repair (12/30/20) ?Z98.890 - Other specified postprocedural states (ICD-10) History of cholecystectomy ?Z90.49 - Acquired absence of other specified parts of digestive tract (ICD- 10) Social History Smoking Status: Never smoker Second hand tobacco smoke exposure: No How often do you have a drink containing alcohol: never AUDIT-C Alcohol total score: 0 Non-prescribed substance use: denies use Exam Narrative: Exam Narrative: Const: Well-nourished, Well-developed, in mild distress Eyes: PERRL, no conjunctival injection, and symmetrical lids HENT: Atraumatic external nose and ears. Moist mucous membranes. Neck: Symmetric, trachea midline, No thyromegaly. CVS: RRR, No murmurs or gallops. Peripheral pulses 2+ and equal in all extremities RESP: Unlabored respiratory effort. Clear to auscultation bilaterally. GI: Nontender/Nondistended, No rebound or guarding. MSK:Extremities w/o deformity, Normal Active ROM Skin: Warm, Dry. No rashes or lesions. Neuro: Normal Muscle tone, Cranial nerves 2-12 grossly intact Other than left lower facial droop, normal [id number], normal [id number], normal gait, normal strength 5/5 upper lower extremities bilaterally, normal sensation upper and lower extremities bilaterally, normal rapid alternating movements. Psych: Awake, Alert, & Oriented x3. Appropriate mood and affect. Const: Vital Signs, click to edit/add: Vital Signs - 24 hr 06/10/24 16:06 Temperature 97.6 F Pulse Rate [Right Pulse Oximeter] 96 Respiratory Rate 18 Blood Pressure [Ri ght Upper Arm] 121/86 Pulse Oximetry 96 Oxygen Delivery Me thod Room Air Course Vital Signs Vital signs: Initial Vital Signs Temperature 97.6 F 06/10/24 16:06 Temperature Source Temporal Artery Scan 06/10/24 16:06 Pulse Rate 96 06/10/24 16:06 Pulse Rhythm Regular 06/10/24 16:06 Pulse Strength 3+ Normal 06/10/24 16:06 Respiratory Rate 18 06/10/24 16:06 Blood Pressure 121/86 06/10/24 16:06 Blood Pressure Mean 97 06/10/24 16:06 Blood Pressure Position Sitting 06/10/24 16:06 Pulse Oximetry 96 06/10/24 16:06 Oxygen Delivery Method Room Air 06/10/24 16:06 Vital Signs Temperature 97.6 F 06/10/24 16:06 Pulse Rate 96 06/10/24 16:06 Respiratory Rate 18 06/10/24 16:06 Blood Pressure 121/86 06/10/24 16:06 Pulse Oximetry 96 06/10/24 16:06 Oxygen Delivery Method Room Air 06/10/24 16:06 Temperature 97.6 F 06/10/24 16:06 Pulse Rate 96 06/10/24 16:06 Respiratory Rate 18 06/10/24 16:06 Blood Pressure 121/86 06/10/24 16:06 Pulse Oximetry 96 06/10/24 16:06 Oxygen Delivery Method Room Air 06/10/24 16:06 Medical Decision Making MDM Narrative Medical decision making narrative: patient is a 78 year old male presenting to the emergency department for concerns of a stroke. He does have left-sided facial droop with some forehead sparing which does make me concerned about a stroke. He is unable to puff out his left cheek. his last known well was yesterday so he has all the window for tPA and loss code stroke was not called. I will order CT head and CTA head and neck be. Will also order an MRI. Differential includes stroke, hemorrhagic stroke, brain mass, Wall's palsy. will order CBC, CMP, COVID/ flu / RSV, magnesium, troponin, EKG, INR. MRI returned showing a acute and subacute strokes consistent with his symptoms. Again by time he arrived to the emergency department he was outside the window for tPA as last known well was yesterday. He will CT scan the head showed no acute concerning abnormalities. CTA is also showed no acute concerning abnormalities. His INR is sub therapeutic. I spoke to Dr. Wheat of Neurology he believes the patient through a clot from his AFib. Aspirin ordered per his recommendations. lab works otherwise not concerning. Patient will be admitted to the hospitalist. Lab Data Labs: Lab Results 06/10/24 06/10/24 Range/Units 17:00 18:33 WBC 7.02 (4.50-11.00) K/uL RBC 4.77 (4.30-5.90) m/uL Hgb 16.4 (13.5-17.5) gm/dL Hct 50.1 (37.0-53.0) % MCV 105 H (80-100) fL MCH 34 (26-34) pg MCHC 33 (32-36) gm/dL RDW Coeff of Shital 13.8 (11.5-15.5) % Plt Count 175 (140-440) K/uL Neut % (Auto) 69.5 (42.0-72.0) % Lymph % (Auto) 17.5 L (20-44) % [place] % (Auto) 11.5 H (0.0-11.0) % Eos % (Auto) 1.3 (0.0-7.0) % Baso % (Auto) 0.1 (0.0-3.0) % Neut # (Auto) 4.87 (1.7-7.0) K/uL Lymph # (Auto) 1.20 (0.90-2.90) K/uL [place] # (Auto) 0.80 (0.00-0.90) K/UL Eos # (Auto) 0.09 (0.00-0.50) K/uL Baso # (Auto) 0.01 (0.00-0.30) K/uL Abs Immat Gran (auto) 0.01 (0.00-0.30) K/uL Imm/Tot Granulo (auto) 0.1 % INR 1.84 H (0.91-1.10) Sodium 140 (135-149) mmol/L Potassium 5.1 (3.6-5.1) mmol/L Chloride 104 (96-114) mmol/L Carbon Dioxide 28 (20-32) mmol/L Anion Gap 8 (7-15) mEq/L BUN 35 H (7-30) mg/dL Creatinine 1.2 (0.5-1.5) mg/dL Estimated Creat Clear 53.23 Estimated GFR 62 ml/min Glucose 83 (60-115) mg/dL Calcium 9.4 (8.4-10.6) mg/dL Magnesium 2.2 (1.5-2.6) mg/dL Total Bilirubin 1.6 H (0.1-1.5) mg/dL AST 56 H (12-35) U/L ALT 30 (4-50) U/L Alkaline Phosphatase 89 (40-150) U/L Troponin I 0.03 (0.01-0.04) ng/mL Total Protein 7.0 (6.0-8.3) g/dL Albumin 4.3 (3.3-5.0) g/dL SARS-CoV-2 (PCR) Negative SARS-CoV-2 (Negative) Influenza Type A (PCR) Negative PCR FLU A (Negative) Influenza Type B (PCR) Negative PCR FLU B (Negative) RSV (PCR) Negative PCR RSV (Negative) Lab Acknowledgement Test Added POC Creatinine 1.4 H (0.6-1.3) mg/dl Imaging Data MR Brain: Attestation: I have reviewed the pertinent imaging results. Radiologist's impression: 1. Small acute ischemic infarct in the right frontal lobe centrum semiovale. Additional larger region of subacute ischemia in the cortex of the right frontal lobe involving the operculum and right insular cortex. 2. 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 3. Moderate generalized parenchymal volume loss. Moderate chronic small vessel white matter ischemic changes. Dictated by Ramana Harrison MD @ 06/10/2024 6:43:[address] scan - head: Attestation: I have reviewed the pertinent imaging results. Radiologist's impression: 1. No acute intracranial abnormality. The known acute ischemic infarcts in the right frontal lobe and right insular cortex are not evident on the noncontrast CT due to differences in modality. 2. Moderate parenchymal volume loss and chronic small vessel ischemic changes. 3. Chronic lacunar infarcts in the left inferior cerebellum. Please note that all CT scans at this facility use dose modulation, iterative reconstruction, and/or weight-based dosing when appropriate to reduce radiation dose to as low as reasonably achievable. Dictated by Ramana Harrison MD @ 06/10/2024 6:57:13 PM CTA head and neck: Attestation: I have reviewed the pertinent imaging results. Radiologist's impression: Preliminary Report: 1. No evidence of proximal artery occlusion, high grade stenosis, aneurysm, dissection, or vascular malformation. 2. No hemodynamically significant ICA stenosis. Final report per neurointerventional radiology service. Read by:?Ramana Harrison MD @06/10/2024 7:04:21 PM ECG Data Attestation: I personally reviewed and interpreted this ECG as follows: Prior ECG tracings: not available for review Interpretation: AFib with rate 86 beats per minute, normal intervals no ST or T-wave abnormalities. There is quite a bit of artifact but no signs of ST elevations. Discharge Plan Discharge Clinical Impression: Ischemic cerebrovascular accident (CVA), Subtherapeutic international normalized ratio (INR) Patient Disposition: Admitted As Observation Condition: Stable Prescriptions: No Action allopurinol 100 mg tablet 100 mg PO DAILY Patient Comments: TAKE TWO TABLETS BY MOUTH DAILY* dapagliflozin propanediol [Farxiga] 5 mg tablet 5 mg PO DAILY Patient Comments: TAKE ONE TABLET BY MOUTH ONE TIME DAILY* losartan 25 mg tablet 25 mg PO DAILY Patient Comments: [NO ORIGINAL SIG] metoprolol succinate 100 mg tablet extended release 24 hr 100 mg PO DAILY Patient Comments: [NO ORIGINAL SIG] potassium chloride 20 mEq tablet,ER particles/crystals 20 meq PO DAILY Patient Comments: TAKE 1/2 TABLET BY MOUTH DAILY rosuvastatin 10 mg tablet 10 mg PO HS Patient Comments: [NO ORIGINAL SIG] sertraline 50 mg tablet 50 mg PO DAILY Patient Comments: [NO ORIGINAL SIG] spironolactone 25 mg tablet 25 mg PO DAILY Patient Comments: TAKE ONE TABLET BY MOUTH EVERY DAY IN THE MORNING.* torsemide 10 mg tablet 10 mg PO DIRECTED PRN Patient Comments: TAKE ONE TABLET BY MOUTH DAILY NEEDED FOR WEIGHT GAIN OF 3LBS OVERNIGHT OR 5LBS OVER THE COURSE OF A WEEK torsemide 5 mg tablet 5 mg PO DAILY Patient Comments: [NO ORIGINAL SIG] warfarin 2 mg tablet 2 mg PO QDAY Qty: 114 0RF Protocol: Dose Management Condition: Saturday Dose/Route: 2 % Instruction: 1 x 2 % tablet Condition: Saturday Dose/Route: 4 % Instruction: 2 x 2 % tablets Condition: Saturday Dose/Route: 2 % Instruction: 1 x 2 % tablet Condition: Saturday Dose/Route: 4 % Instruction: 2 x 2 % tablets Condition: Dose/Route: 2 % Instruction: 1 x 2 % tablet Condition: Saturday Dose/Route: 4 % Instruction: 2 x 2 % tablets Condition: Saturday Dose/Route: 2 % Instruction: 1 x 2 % tablet Protocol Text: Adjustment Start Date: Saturday10/02/21 INR Value: 1.8 INR Date: 09/25/21 Recheck Date: 10/16/21 Rx Instructions: Archibald 2 MG, M 2 MG, Tu 4 MG, W 2 MG, Th 4 MG, F 2 MG, Sa 2 MG Follow Up/Referrals: Aiden Polanco MD [Primary Care Provider] - Stand Alone Forms: [employer] Info Instructions
[2024-06-10 19:15] LABS: INR 1.84 (0.91-1.10); Prothrombin Time 22.3 Seconds
[2024-06-10] MEDS: ASPIRIN 81 MG TAB.CHEW 324 MG PO (19:23)
[2024-06-10 19:25] VITALS: BP 120/88; PULSE 109; RESP 16; O2SAT 95
[2024-06-10 20:35] LABS: Ethanol* < 0.01 % (0.01-0.03)
[2024-06-10] MEDS: LACTATED RINGERS 1000 ML 1,000 ML 75 ML IV (20:59)
[2024-06-10] MEDS: METOPROLOL SUCCINATE (XL) 25 MG TAB PO (20:59)
[2024-06-10] MEDS: SODIUM CHLORIDE 0.9 % (FLUSH) 10 ML SYRINGE 5 ML IVF (20:59)
[2024-06-10] MEDS: ROSUVASTATIN CALCIUM 10 MG TABLET PO (21:03)
[2024-06-10 21:07] VITALS: PULSE 97
--- NOTE | 2024-06-10 21:19 | P.IMHP_ITS ---
Assessment and Plan Assessment and plan (1) Ischemic cerebrovascular accident (CVA): Problem comment: New stroke with new speech impairment, possible swallowing impairment and left facial droop. Given his subtherapeutic INR this could be embolic stroke from his AFib. He received aspirin in the emergency department. I recommend he switch from warfarin to apixaban for stroke prophylaxis given his difficulty maintaining a therapeutic INR. I am going to continue his heart failure medicines but monitor blood pressure to avoid hypotension. Increased rosuvastatin dose. Pending stroke consult. Status: Acute (2) Subtherapeutic international normalized ratio (INR): Problem comment: INR has been subtherapeutic from December 2023 to 06/10/2024. Recommend switching from warfarin to apixaban Status: Acute (3) Heart failure with preserved ejection fraction: Problem comment: Continue heart failure medicines. He appears to be well compensated at this time. Status: Acute (4) Valvular cardiomyopathy: Problem comment: Mitral regurgitation managed with MitraClip. Status: Acute (5) Atrial fibrillation: Problem comment: On anticoagulation and rate control. Continue anticoagulation with metoprolol and switched to apixaban. Status: Acute (6) Swallowing difficulty: Problem comment: Speech evaluate for swallowing difficulty with concern about aspiration as well as drooling. Status: Acute Plan 78-year-old male with acute, subacute and old strokes causing significant disability. Initiate ongoing evaluation of disabilities including speech and swallowing, cognitive deficits, balance. Evaluate for appropriate ongoing therapy to prevent future stroke including improved anticoagulation. Pending Stroke Neurology recommendations. Total Time Spent Total Time Spent: Total time spent today is 85 minutes in reviewing outside records, discussing with patient his granddaughter and other providers ongoing management of disability from stroke and prevention of future strokes. Hospitalist- H&P: MATTIE History of Present Illness Date Seen: 06/10/24 Chief complaint: Slurred speach Narrative: Darrin Jules is a 78 year old male with atrial fibrillation, heart failure, hypertension, admitted to the hospital with new onset today of slurring of his speech and left facial droop. His granddaughter normally checks in with him as she is driving home from work. When she did so this afternoon she noted that he was having trouble speaking. He normally mumbles and slurs his speech a little bit but today it was much worse. She came to check on him and saw the left facial droop and brought him to the emergency department his last known well is uncertain. Patient is unable to describe any timing for the onset of his symptoms. His granddaughter notes that he has longstanding problems with speaking. Patient also reports longstanding problems with dizziness which he describes primarily is feeling unsteady. He does not use a cane or a walker but ambulates independently. He has atrial fibrillation on rate control and anticoagulation with warfarin. In reviewing his records I see his INR has been subtherapeutic for the last 4 months. His INR of 1.8 today is the highest it has been since December 2023. He manages own medications but it is unclear how well he takes his medicines. His granddaughter typically sets his pills up in a pillbox but she is unsure of how compliant he is. Review of Systems Narrative: Patient denies any other recent illness or injury. He denies problems with falling down. Reports he has been able to eat without nausea or vomiting. Denies bowel or bladder problems. [facility] Medical History (Updated 06/10/24 @ 21:40 by Armando Marvin MD) Swallowing difficulty ?R13.10 - Dysphagia, unspecified (ICD-10) Counseling regarding advanced directives (08/28/17) ?Z71.89 - Other specified counseling (ICD-10) Long-term (current) use of anticoagulants, INR goal 2.0-3.0 ?Z79.01 - prison (current) use of anticoagulants (ICD-10) Abdominal hernia ?K46.9 - Unspecified abdominal hernia without obstruction or gangrene (ICD- 10) Anticoagulation goal of INR 2 to 3 ?Z51.81 - Encounter for therapeutic drug level monitoring (ICD-10) ?Z79.01 - prison (current) use of anticoagulants (ICD-10) Anxiety ?F41.9 - Anxiety disorder, unspecified (ICD-10) Gastritis ?K29.70 - Gastritis, unspecified, without bleeding (ICD-10) Gout ?M10.9 - Gout, unspecified (ICD-10) Hemochromatosis (2008) ?E83.119 - Hemochromatosis, unspecified (ICD-10) Hypertension ?I10 - Essential (primary) hypertension (ICD-10) Small bowel obstruction due to adhesions ?K56.50 - Intestinal adhesions [bands], unspecified as to partial versus complete obstruction (ICD-10) Atrial fibrillation ?I48.91 - Unspecified atrial fibrillation (ICD-10) Heart failure with preserved ejection fraction ?I50.30 - Unspecified diastolic (congestive) heart failure (ICD-10) History of fracture of left ankle (2000) ?Z87.81 - Personal history of (healed) traumatic fracture (ICD-10) History of basal cell carcinoma (BCC) (07/17/18) ?Z85.828 - Personal history of other malignant neoplasm of skin (ICD-10) Surgical History (Updated 06/10/24 @ 21:31 by Armando Marvin MD) History of umbilical hernia repair (04/15/15) ?Z98.890 - Other specified postprocedural states (ICD-10) ?Z87.19 - Personal history of other diseases of the digestive system (ICD-10) History of mitral valve repair (12/30/20) ?Z98.890 - Other specified postprocedural states (ICD-10) History of cholecystectomy ?Z90.49 - Acquired absence of other specified parts of digestive tract (ICD- 10) Social History (Updated 06/10/24 @ 21:32 by Armando Marvin MD) Narrative: He lives [facility] in his own home. He lives alone. His is in memory care at [facility]. His granddaughter checks with him by phone every day. Code status is full. He does not smoke. He does not drink alcohol. Granddaughter, Hallie Hewitt, is healthcare power of attorney recruiter Smoking Status: Never smoker Second hand tobacco smoke exposure: No How often do you have a drink containing alcohol: never AUDIT-C Alcohol total score: 0 Non-prescribed substance use: denies use Meds Home Medications and Allergies Home Medications ?Medication ?Instructions ?Recorded ?Confirmed ?Type allopurinol 100 mg tablet 100 mg PO DAILY 01/20/24 06/10/24 History dapagliflozin propanediol 5 mg 5 mg PO DAILY 01/20/24 06/10/24 History tablet (Farxiga) losartan 25 mg tablet 25 mg PO DAILY 01/20/24 06/10/24 History metoprolol succinate 100 mg 100 mg PO DAILY 01/20/24 06/10/24 History tablet,extended release 24 hr potassium chloride 20 mEq 20 meq PO DAILY 01/20/24 06/10/24 History tablet,extended release(part/cryst) rosuvastatin 10 mg tablet 10 mg PO HS 01/20/24 06/10/24 History sertraline 50 mg tablet 50 mg PO DAILY 01/20/24 06/10/24 History spironolactone 25 mg tablet 25 mg PO DAILY 01/20/24 06/10/24 History torsemide 10 mg tablet 10 mg PO DIRECTED PRN 01/20/24 06/10/24 History torsemide 5 mg tablet 5 mg PO DAILY 01/20/24 01/20/24 History Allergies Allergy/AdvReac Type Severity Reaction Status Date / Time morphine Allergy Mild itchy Verified 06/10/24 18:42 latex Allergy Unknown Verified 06/10/24 18:42 OXYCODONE-ACETAMINOPHEN Allergy Intermediate increased Uncoded 06/10/24 18:42 anxiety Pain Meds AdvReac Mild anxious Uncoded 06/10/24 18:42 Exam Narrative: Exam Narrative: He is alert and appears in no distress. Speech is difficult to understand as he mumbles and slurs his speech. According to his granddaughter this is much worse than his baseline though he has had longstanding problems with mumbling when he spoke. Head is without trauma. Eyes are normal. Extraocular movements are full. Visual lemon are intact. Pupils are equal round and reactive to light. Also to accommodation. He has a mild left facial droop. I observe him drinking water and he loses some of the water out of the left corner of his mouth and dribbles over his alaniz and chest. No other obvious facial asymmetry. No other obvious facial weakness. Oropharynx with tongue in midline. Marked dental loss. Dry mucous membranes. Respirations are clear to auscultation without wheezing rales or rhonchi. Cardiovascular: S1, S2, irregularly irregular. Abdomen: Bowel sounds active. Abdomen is soft without tenderness or mass. External genitalia normal. Upper extremities have symmetric and full strength bilaterally including finger extension, upholstery department supervisor strength, wrist flexion and extension, elbow flexion extension and shoulder flexion extension. [id number] is accurate and efficient. Lower extremities: Hip flexion, knee flexion extension, ankle dorsiflexion and plantar flexion are approximately equal as well. No obvious weakness. He has 1+ edema in his ankles. Dim inished pedal pulses. No rash Const: Vital Signs, click to edit/add: Vital Signs - 24 hr 06/10/24 16:06 06/10/24 19:25 Temperature 97.6 F Pulse Rate [Right Pulse Oximeter] 96 109 H Respiratory Rate 18 16 Blood Pressure [Ri ght Upper Arm] 121/86 120/88 Pulse Oximetry 96 95 Oxygen Delivery Me thod Room Air Room Air Documenting provider has reviewed patient's vital signs: yes Hospitalist - H&P: Result Labs Labs: Short CBC 06/10/24 Range/Units 17:00 WBC 7.02 (4.50-11.00) K/uL Hgb 16.4 (13.5-17.5) gm/dL Hct 50.1 (37.0-53.0) % Plt Count 175 (140-440) K/uL BMP 06/10/24 17:00 Sodium 140 Potassium 5.1 Chloride 104 Carbon Dioxide 28 BUN 35 H Creatinine 1.2 Glucose 83 Calcium 9.4 Cardiac Enzymes 06/10/24 Range/Units 17:00 Troponin I 0.03 (0.01-0.04) ng/mL Liver Function 06/10/24 Range/Units 17:00 Total Bilirubin 1.6 H (0.1-1.5) mg/dL AST 56 H (12-35) U/L ALT 30 (4-50) U/L Alkaline Phosphatase 89 (40-150) U/L Albumin 4.3 (3.3-5.0) g/dL Imaging MRI - head: Radiologist's impression: Impression: 1. Small acute ischemic infarct in the right frontal lobe centrum semiovale. Additional larger region of subacute ischemia in the cortex of the right frontal lobe involving the operculum and right insular cortex. 2. 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 3. Moderate generalized parenchymal volume loss. Moderate chronic small vessel white matter ischemic changes.
[2024-06-10 23:28] VITALS: BP 106/83; PULSE 104; RESP 20; TEMP 36.7; O2SAT 93
[2024-06-10 23:45] VITALS: BP 119/82; PULSE 102; RESP 22; TEMP 36.6; O2SAT 94; BMI 24.3
[2024-06-11] VITALS (13 sets, daily range): BP systolic 90–113; BP diastolic 62–102; PULSE 84–102; RESP 16–22; TEMP 36.6–37.1; O2SAT 93–97
--- NOTE | 2024-06-11 06:42 | PC.NURSE ---
Patient admitted to the floor at 1999 with MRI confirmed CVA. Slurred speech, drooling, and slight L. sided facial droop. NPO. A&Ox3. Denies pain. Denies N/V/CP/dizziness. SBA w/walker.
[2024-06-11 06:56] LABS: Appearance Urine Clear (Clear); Bilirubin Urine 1+ (Negative); Blood Urine Trace-intact (Negative); Color Urine Yellow (Yellow); Glucose Urine Negative (Negative); Ketones Urine 1+ (Negative); Leukocyte Esterase Urine Trace (Negative); Nitrite Urine Negative (Negative); Protein Urine Trace (Negative); Specific Gravity Urine 1.015 (1.000-1.030); pH Urine 5.5 (5.0-8.5)
[2024-06-11 07:01] LABS: RBC Urine 0-2 (0-2); Squamous Epithelial Cell Urine Few (None-Few); WBC Urine 0-2 (0-5)
[2024-06-11 07:06] LABS: Basophils Absolute Auto 0.01 K/uL (0.00-0.30); Basophils Percent Auto 0.1 % (0.0-3.0); Eosinophils Percent Auto 1.2 % (0.0-7.0); Hematocrit 49.8 % (37.0-53.0); Hemoglobin* 16.3 gm/dL (13.5-17.5); Immature Granulocytes Abs Auto 0.02 K/uL (0.00-0.30); Immature Granulocytes Pct Auto 0.2 %; Mean Corpuscular HGB Conc 33 gm/dL (32-36); Mean Corpuscular Hemoglobin 35 pg (26-34); Mean Corpuscular Volume 106 fL (80-100); Monocytes Percent Auto 9.4 % (0.0-11.0); Neutrophils Percent Auto 75.1 % (42.0-72.0); Platelet Count* 154 K/uL (140-440); RDW Coefficient of Variation % 13.6 % (11.5-15.5); White Blood Count* 8.51 K/uL (4.50-11.00)
[2024-06-11 07:12] LABS: Albumin* 3.9 g/dL (3.3-5.0); Chloride* 106 mmol/L (96-114); Sodium* 138 mmol/L (135-149)
[2024-06-11 07:13] LABS: Potassium* 4.6 mmol/L (3.6-5.1)
[2024-06-11 07:15] LABS: Alanine Aminotransferase* 26 U/L (4-50); Anion Gap 6 mEq/L (7-15); Aspartate Amino Transferase* 47 U/L (12-35); Blood Urea Nitrogen* 27 mg/dL (7-30); Carbon Dioxide* 26 mmol/L (20-32); Est. Creatinine Clearance* 63.88; Estimated Glomerular Filt Rate 78 ml/min; Slide Review Reflex No
[2024-06-11 07:16] LABS: Alkaline Phosphatase* 86 U/L (40-150); Bilirubin Direct* 0.4 mg/dL (0.0-0.5); Bilirubin Total* 1.9 mg/dL (0.1-1.5); Calcium* 8.9 mg/dL (8.4-10.6); Glucose* 74 mg/dL (60-115); Total Protein* 6.5 g/dL (6.0-8.3)
[2024-06-11 07:25] LABS: Troponin I* 0.03 ng/mL (0.01-0.04)
[2024-06-11] MEDS: TORSEMIDE 5 MG TABLET PO (08:37)
[2024-06-11] MEDS: LOSARTAN POTASSIUM 50 MG TABLET 25 MG PO (09:24)
[2024-06-11] MEDS: SPIRONOLACTONE 25 MG TABLET PO (09:24)
[2024-06-11] MEDS: allopurinoL 100 MG TABLET 200 MG PO (09:24)
[2024-06-11] MEDS: SERTRALINE 50 MG TABLET PO (09:24)
[2024-06-11] MEDS: METOPROLOL SUCCINATE (XL) 50 MG TAB PO (09:25)
[2024-06-11] MEDS: SODIUM CHLORIDE 0.9 % (FLUSH) 10 ML SYRINGE 5 ML IVF ×2 (09:25→20:20)
[2024-06-11] MEDS: APIXABAN 5 MG TABLET PO ×2 (09:25→20:19)
--- NOTE | 2024-06-11 09:55 | CRLHL7_ITS ---
For Patients: As a result of the Century Cures Act, medical imaging exams and procedure reports are released immediately into your electronic medical record. You may view this report before your referring provider. If you have questions, please contact your health care provider. INDICATION: SUSPECTED CVA COMPARISON: CT head on June 10, 2024 and prior studies TECHNIQUE: CT of the head without contrast. FINDINGS: No acute intracranial hemorrhage or extra-axial collection. No evidence of acute cortical infarction. Chronic lacunar infarcts in the left inferior cerebellum. No mass effect or midline shift. Mild generalized parenchymal volume loss. Mild regions of decreased attenuation within the periventricular and subcortical white matter of both cerebral hemispheres most likely reflect chronic microvascular ischemic disease and age related change in this patient. Vascular calcifications within the carotid siphons. Orbital contents are normal. No calvarial fractures. No lytic or sclerotic osseous lesions within the calvarium or skull base. Scalp and other imaged soft tissue structures are without acute abnormality. Mastoid air cells are clear. Incidental peripherally calcified left occipital scalp lesion most compatible with epidermal inclusion cyst. IMPRESSION: 1. No CT evidence of an acute intracranial process. 2. No interval change compared to prior exam. Please note that all CT scans at this facility use dose modulation, iterative reconstruction, and/or weight-based dosing when appropriate to reduce radiation dose to as low as reasonably achievable. Dictated by Jake Siddiqi MD @ 06/11/2024 10:14:37 AM (Electronically Signed)
[2024-06-11] MEDS: LACTATED RINGERS 1000 ML 1,000 ML 75 ML IV ×2 (10:18→23:58)
[2024-06-11 12:09] LABS: Cholesterol* 100 mg/dL (90-199); HDL Cholesterol* 46 mg/dL (>=40); LDL Cholesterol Calculated 44 mg/dL (<100); Triglycerides* 52 mg/dL (40-149)
[2024-06-11 12:10] LABS: Hemoglobin A1C* 5.1 % (0-5.6)
--- NOTE | 2024-06-11 12:39 | REH.PT ---
PT order received - thank you. Holding PT eval today due to medical status. Will attempt eval tomorrow.
--- NOTE | 2024-06-11 14:55 | PM.IMPN1 ---
Assessment and Plan Assessment and plan (1) Ischemic cerebrovascular accident (CVA): Problem comment: New stroke with new speech impairment, possible swallowing impairment and left facial droop. Given his subtherapeutic INR this could be embolic stroke from his AFib. He received aspirin in the emergency department. I recommend he switch from warfarin to apixaban for stroke prophylaxis given his difficulty maintaining a therapeutic INR. I am going to continue his heart failure medicines but monitor blood pressure to avoid hypotension. Increased rosuvastatin dose. Pending stroke consult. Status: Acute (2) Subtherapeutic international normalized ratio (INR): Problem comment: INR has been subtherapeutic from December 2023 to 06/10/2024. Recommend switching from warfarin to apixaban Status: Acute (3) Heart failure with preserved ejection fraction: Problem comment: Continue heart failure medicines. He appears to be well compensated at this time. Status: Acute (4) Valvular cardiomyopathy: Problem comment: Mitral regurgitation managed with MitraClip. Status: Acute (5) Atrial fibrillation: Problem comment: On anticoagulation and rate control. Continue anticoagulation with metoprolol and switched to apixaban. Status: Acute (6) Swallowing difficulty: Problem comment: Speech evaluate for swallowing difficulty with concern about aspiration as well as drooling. Status: Acute (7) Transient neurologic deficit: Problem comment: -late morning on 06/11/2024 patient became unresponsive, head tilted to the right, eyes rolled to the right, note tonic clonic movements, episode lasting 15-20 minutes, slowly gain consciousness again and able to interact again. -repeat CT scan of head without contrast 06/11/2024 demonstrated no new intracranial abnormalities or hemorrhagic episodes. -I spoke with his stroke neurologist, Dr. Meri vale, . Continue with current plan. Ordered echo. Ordered hemoglobin A1c. Ordered lipid panel. Status: Acute Plan 1. Reviewed impression and recommendations with patient, granddaughter, grandson 2. Answered their questions 3. They are agreeable to above stated plan recommendations Total Time Spent Total Time Spent: 60 minutes Subjective Date Seen: 06/11/24 Interval history: Admission history of present illness: ?78 year old male with atrial fibrillation, heart failure, hypertension, admitted to the hospital with new onset today of slurring of his speech and left facial droop. His granddaughter normally checks in with him as she is driving home from work. When she did so this afternoon she noted that he was having trouble speaking. He normally mumbles and slurs his speech a little bit but today it was much worse. She came to check on him and saw the left facial droop and brought him to the emergency department his last known well is uncertain. Patient is unable to describe any timing for the onset of his symptoms. ?His granddaughter notes that he has longstanding problems with speaking. Patient also reports longstanding problems with dizziness which he describes primarily is feeling unsteady. He does not use a cane or a walker but ambulates independently. ?He has atrial fibrillation on rate control and anticoagulation with warfarin. In reviewing his records I see his INR has been subtherapeutic for the last 4 months. His INR of 1.8 today is the highest it has been since December 2023. He manages own medications but it is unclear how well he takes his medicines. His granddaughter typically sets his pills up in a pillbox but she is unsure of how compliant he is.? Hospital day 2 (06/11/2024): As I was visiting him this morning in his room he was pulling up his socks and he suddenly became unresponsive, head tilted to the right, gaze in both eyes turned to the right, he was unresponsive and not interactive, had episodes of apnea lasting 15-20 seconds. Entire episode lasted 15-20 minutes. Code stroke called. CT scan of head obtained demonstrating no new findings including intracranial hemorrhage. Over time this episode resolved and he became more interactive with those around him again. Exam Narrative: Exam Narrative: Examined patient his hospital room. When I 1st assessed him he is awake interactive talkative. While I am assessing him he suddenly becomes unresponsive, head tilt to the right, I gaze is fixed to the right, drooling from the right, episodes of apnea lasting up to 20 seconds. Entire episode lasted about 20 minutes. Slowly regain consciousness and awareness. Was with him throughout most of this time. Lungs clear to auscultation. Chaotic heart rhythm Abdomen benign. Accompanied him the entire time he was gone for his CT scan of the head and monitored him serially during that time. Const: Vital Signs, click to edit/add: Vital Signs - 24 hr 06/10/24 16:06 06/10/24 19:25 06/10/24 21:07 Temperature 97.6 F Pulse Rate 97 Pulse Rate [Right Pulse Oximeter] 96 109 H Respiratory Rate 18 16 Blood Pressure [Ri ght Arm] Blood Pressure [Ri ght Upper Arm] 121/86 120/88 Pulse Oximetry 96 95 Oxygen Delivery Me thod Room Air Room Air Oxygen Flow Rate 06/10/24 23:28 06/10/24 23:45 06/11/24 00:05 Temperature 98.1 F 97.9 F Pulse Rate Pulse Rate [Right Pulse Oximeter] 104 H 102 H 102 H Respiratory Rate 20 22 Blood Pressure [Ri ght Arm] 106/83 119/82 Blood Pressure [Ri ght Upper Arm] Pulse Oximetry 93 94 Oxygen Delivery Me thod Room Air Room Air Oxygen Flow Rate 06/11/24 00:16 06/11/24 04:16 06/11/24 07:00 Temperature 98.1 F Pulse Rate 92 97 Pulse Rate [Right Pulse Oximeter] 98 Respiratory Rate 18 Blood Pressure [Ri ght Arm] 111/89 Blood Pressure [Ri ght Upper Arm] Pulse Oximetry 95 Oxygen Delivery Me thod Room Air Oxygen Flow Rate 06/11/24 07:00 06/11/24 07:00 06/11/24 11:00 Temperature 98.8 F 97.9 F Pulse Rate Pulse Rate [Right Pulse Oximeter] 93 96 94 Respiratory Rate 16 16 18 Blood Pressure [Ri ght Arm] 104/75 113/102 H Blood Pressure [Ri ght Upper Arm] Pulse Oximetry 93 95 Oxygen Delivery Me thod Room Air Nasal Cannula Oxygen Flow Rate 1 Labs Labs: Laboratory Results - last 24 hr 06/10/24 06/10/24 06/10/24 17:00 18:33 20:15 WBC 7.02 RBC 4.77 Hgb 16.4 Hct 50.1 MCV 105 H MCH 34 MCHC 33 RDW Coeff of [place] 13.8 Plt Count 175 Neut % (Auto) 69.5 Lymph % (Auto) 17.5 L [place] % (Auto) 11.5 H Eos % (Auto) 1.3 Baso % (Auto) 0.1 Neut # (Auto) 4.87 Lymph # (Auto) 1.20 [place] # (Auto) 0.80 Eos # (Auto) 0.09 Baso # (Auto) 0.01 Abs Immat Gran (auto) 0.01 Imm/Tot Granulo (auto) 0.1 INR 1.84 H Sodium 140 Potassium 5.1 Chloride 104 Carbon Dioxide 28 Anion Gap 8 BUN 35 H Creatinine 1.2 Estimated Creat Clear 53.23 Estimated GFR 62 Glucose 83 Hemoglobin A1c Calcium 9.4 Magnesium 2.2 Total Bilirubin 1.6 H Direct Bilirubin AST 56 H ALT 30 Alkaline Phosphatase 89 Troponin I 0.03 Total Protein 7.0 Albumin 4.3 Triglycerides Cholesterol LDL Cholesterol, Calc HDL Cholesterol Urine Color Urine Appearance Urine pH Ur Specific [place] Urine Protein Urine Glucose (UA) Urine Ketones Urine Blood Urine Nitrite Urine Bilirubin Urine Urobilinogen Ur Leukocyte Esterase Urine RBC Urine WBC Ur Squamous Epith Cells Urine Bacteria Ethyl Alcohol < 0.01 SARS-CoV-2 (PCR) Negative SARS-CoV-2 Influenza Type A (PCR) Negative PCR FLU A Influenza Type B (PCR) Negative PCR FLU B RSV (PCR) Negative PCR RSV Lab Acknowledgement Test Added Test Added POC Creatinine 1.4 H 06/11/24 06/11/24 06/11/24 06:13 06:38 11:30 WBC 8.51 RBC 4.70 Hgb 16.3 Hct 49.8 MCV 106 H MCH 35 H MCHC 33 RDW Coeff of [place] 13.6 Plt Count 154 Neut % (Auto) 75.1 H Lymph % (Auto) 14.0 L [place] % (Auto) 9.4 Eos % (Auto) 1.2 Baso % (Auto) 0.1 Neut # (Auto) 6.40 Lymph # (Auto) 1.20 [place] # (Auto) 0.80 Eos # (Auto) 0.10 Baso # (Auto) 0.01 Abs Immat Gran (auto) 0.02 Imm/Tot Granulo (auto) 0.2 INR Sodium 138 Potassium 4.6 Chloride 106 Carbon Dioxide 26 Anion Gap 6 L BUN 27 Creatinine 1.0 Estimated Creat Clear 63.88 Estimated GFR 78 Glucose 74 Hemoglobin A1c 5.1 Calcium 8.9 Magnesium Total Bilirubin 1.9 H Direct Bilirubin 0.4 AST 47 H ALT 26 Alkaline Phosphatase 86 Troponin I 0.03 Total Protein 6.5 Albumin 3.9 Triglycerides 52 Cholesterol 100 LDL Cholesterol, Calc 44 HDL Cholesterol 46 Urine Color Yellow Urine Appearance Clear Urine pH 5.5 Ur Specific [place] 1.015 Urine Protein Trace A Urine Glucose (UA) Negative Urine Ketones 1+ A Urine Blood Trace-intact A Urine Nitrite Negative Urine Bilirubin 1+ A Urine Urobilinogen 1.0 Ur Leukocyte Esterase Trace A Urine RBC 0-2 Urine WBC 0-2 Ur Squamous Epith Cells Few Urine Bacteria None Ethyl Alcohol SARS-CoV-2 (PCR) Influenza Type A (PCR) Influenza Type B (PCR) RSV (PCR) Lab Acknowledgement Test Added POC Creatinine Imaging CT scan - head: Attestation: I have reviewed the pertinent imaging results. Radiologist's impression: No acute intracranial abnormalities
--- NOTE | 2024-06-11 19:46 | PC.NURSE ---
End of shift: Patient alert and oriented. Left side facial droop. NPO for swallow study 06/12. Thickened liquids encouraged until swallow study. Stroke code called at [id number], CT, Blood glucose, EKG, MD notified. CT showed no worsening changes. ECCO scheduled for 06/12. Family at bedside throughout the day. Patient is 1 assist with walker and GB. Patient back to baseline
[2024-06-11] MEDS: ROSUVASTATIN CALCIUM 10 MG TABLET 20 MG PO (20:19)
[2024-06-12 00:02] VITALS: PULSE 89
[2024-06-12 02:30] VITALS: BP 102/87; PULSE 88; RESP 18; TEMP 36.4; O2SAT 99
--- NOTE | 2024-06-12 06:56 | PC.NURSE ---
Pt alert and oriented to self and place only. Afebrile. Pt denies pain, SOB, chest pain, and N/V. Pt continues to have left sided facial asymmetry and mild weakness of upper and lower left extremities. Pt is up A1 with walker and gait belt, voiding and tolerating a NPO diet. Pt having low blood pressures and pt triggered sepsis protocol updated MD Marvin, Orders put in to hold losartan and spironolactone.
[2024-06-12 07:00] VITALS: BP 106/82; PULSE 94; RESP 18; TEMP 36.4; O2SAT 95
[2024-06-12 07:41] VITALS: PULSE 107
[2024-06-12 08:15] LABS: Albumin* 3.8 g/dL (3.3-5.0); Chloride* 106 mmol/L (96-114); Potassium* 4.3 mmol/L (3.6-5.1); Sodium* 138 mmol/L (135-149)
[2024-06-12 08:18] LABS: Alanine Aminotransferase* 26 U/L (4-50); Alkaline Phosphatase* 87 U/L (40-150); Anion Gap 7 mEq/L (7-15); Aspartate Amino Transferase* 51 U/L (12-35); Bilirubin Direct* 0.4 mg/dL (0.0-0.5); Bilirubin Total* 1.6 mg/dL (0.1-1.5); Blood Urea Nitrogen* 24 mg/dL (7-30); Carbon Dioxide* 25 mmol/L (20-32); Est. Creatinine Clearance* 63.88; Estimated Glomerular Filt Rate 78 ml/min; Total Protein* 6.3 g/dL (6.0-8.3)
[2024-06-12 08:19] LABS: Calcium* 8.8 mg/dL (8.4-10.6); Glucose* 90 mg/dL (60-115)
[2024-06-12] MEDS: APIXABAN 5 MG TABLET PO (09:08)
[2024-06-12] MEDS: allopurinoL 100 MG TABLET 200 MG PO (09:08)
[2024-06-12] MEDS: TORSEMIDE 5 MG TABLET PO (09:08)
[2024-06-12] MEDS: SERTRALINE 50 MG TABLET PO (09:08)
[2024-06-12] MEDS: METOPROLOL SUCCINATE (XL) 50 MG TAB PO (09:08)
[2024-06-12] MEDS: SODIUM CHLORIDE 0.9 % (FLUSH) 10 ML SYRINGE 5 ML IVF (09:13)
[2024-06-12 11:00] VITALS: BP 82/56; BP 89/60; PULSE 95; RESP 18; TEMP 36.4; O2SAT 97
[2024-06-12] MEDS: 0.9 % SODIUM CHLORIDE 500 ML 500 ML IV (12:27)
--- NOTE | 2024-06-12 14:24 | PC.NURSE ---
Discharge Note: Pt discharged at 1415 via wheelchair accompanied by his family member. IV removed and tip intact. Pt denies pain. Pt had low BP at 89/60 MD notified and NS given with positive effect. Afebrile. Tolerating thickened liquids and soft diet. Left facial drooping and slurred voice apparent. Neuros remain intact. Belongings sheet and discharge instructions signed and gone through. Ambulates SBA with walker.
--- NOTE | 2024-06-12 17:03 | PM.DS1 ---
DS: Providers Provider Date Seen: 06/12/24 Date of admission: 06/10/24 20:15 Primary care physician: Aiden Polanco MD Admitting Clinician: Armando Marvin MD Consults: 06/10/24 20:15 Consult to Occupational Therapy [CONS] Routine Comment: Reason(s) for OT Consult:: Evaluate and Treat Any Restrictions?:: No Restrictions Consult to Physical Therapy [CONS] Routine Comment: Reason(s) for PT Consult:: Evaluate and Treat Any Restrictions?:: No Restrictions Consult to Molded Frames Assembler [CONS] Routine Comment: Reason for Consult:: Discharge Planning Needs Consult to Speech Therapy [CONS] Routine Comment: Reason(s) for Speech Consult:: Swallowing Difficulty Attending Physician on discharge: Luca Del Toro MD Date of Discharge: 06/12/24 DS: Diagnosis Discharge Diagnosis (1) Ischemic cerebrovascular accident (CVA): Status: Acute Problem details: New stroke with new speech impairment, possible swallowing impairment and left facial droop. Given his subtherapeutic INR this could be embolic stroke from his AFib. He received aspirin in the emergency department. I recommend he switch from warfarin to apixaban for stroke prophylaxis given his difficulty maintaining a therapeutic INR. I am going to continue his heart failure medicines but monitor blood pressure to avoid hypotension. Increased rosuvastatin dose. Pending stroke consult. (2) Subtherapeutic international normalized ratio (INR): Status: Acute Problem details: INR has been subtherapeutic from December 2023 to 06/10/2024. Recommend switching from warfarin to apixaban (3) Atrial fibrillation: Status: Acute Problem details: On anticoagulation and rate control. Continue anticoagulation with metoprolol and switched to apixaban. (4) Swallowing difficulty: Status: Acute Problem details: Speech evaluate for swallowing difficulty with concern about aspiration as well as drooling. (5) Transient neurologic deficit: Status: Acute Problem details: -late morning on 06/11/2024 patient became unresponsive, head tilted to the right, eyes rolled to the right, note tonic clonic movements, episode lasting 15-20 minutes, slowly gain consciousness again and able to interact again. -repeat CT scan of head without contrast 06/11/2024 demonstrated no new intracranial abnormalities or hemorrhagic episodes. -I spoke with his stroke neurologist, Dr. Meri vale, . Continue with current plan. Ordered echo. Ordered hemoglobin A1c. Ordered lipid panel. (6) Heart failure with preserved ejection fraction: Status: Acute Problem details: Continue heart failure medicines. He appears to be well compensated at this time. (7) Valvular cardiomyopathy: Status: Acute Problem details: - Mitral regurgitation managed with MitraClip. - TTE 06/12/24: 1. Mild increased LV size, borderline increased wall thickness, LV EF 55-60%. 2. Massively enlarged left and right atria. 3. Normal RV size, borderline reduced systolic RV function. 4. Myxomatous mitral valve repaired with MitraClip, severe mitral regurgitation. Mean gradient 3.5 mmHg at HR 103. 5. Myxomatous tricuspid valve, severe regurgitation. 6. Estimated RV systolic pressure 42 mmHg plus RAP. (8) Hypertension: Status: Acute DS: Summary Hospital Course Hospital Course: Admission history of present illness: ?78 year old male with atrial fibrillation, heart failure, hypertension, admitted to the hospital with new onset today of slurring of his speech and left facial droop. His granddaughter normally checks in with him as she is driving home from work. When she did so this afternoon she noted that he was having trouble speaking. He normally mumbles and slurs his speech a little bit but today it was much worse. She came to check on him and saw the left facial droop and brought him to the emergency department his last known well is uncertain. Patient is unable to describe any timing for the onset of his symptoms. ?His granddaughter notes that he has longstanding problems with speaking. Patient also reports longstanding problems with dizziness which he describes primarily is feeling unsteady. He does not use a cane or a walker but ambulates independently. ?He has atrial fibrillation on rate control and anticoagulation with warfarin. In reviewing his records I see his INR has been subtherapeutic for the last 4 months. His INR of 1.8 today is the highest it has been since December 2023. He manages own medications but it is unclear how well he takes his medicines. His granddaughter typically sets his pills up in a pillbox but she is unsure of how compliant he is.? Please see individual diagnosis above for patient progress with regard to each diagnosis. His condition improved substantially by the time of discharge such that he is able to discharge home with help from family 24 hours a day and other plans as specified below. Did discuss transitional care unit placement 4. A time however patient and family declined. Status at Discharge Functional status at discharge: uses cane/walker Overall status at discharge: patient is progressing back to baseline Time Spent with Patient Time attestation: Total time spent providing and/or coordinating discharge services: Time spent: Greater than 30 minutes Exam Narrative: Exam Narrative: Examined patient his hospital room and in the hallways. He is alert and oriented x3. Cooperative and friendly. No acute distress. Eats and drinks without difficulties, without coughing or sputtering. Lungs clear to auscultation. Chaotic heart rhythm, chronic Abdomen benign. I observe him ambulating the halls with his walker and standby assist of 1. Const: Vital Signs, click to edit/add: Vital Signs - 24 hr 06/11/24 19:06 06/11/24 19:07 06/11/24 20:17 Temperature 98.2 F 98.2 F Pulse Rate Pulse Rate [Right Pulse Oximeter] 94 94 90 Respiratory Rate 16 16 Blood Pressure [Le ft Arm] Blood Pressure [Ri ght Arm] 92/67 90/69 Pulse Oximetry 94 97 Oxygen Delivery Me thod Room Air Room Air Oxygen Flow Rate 0 06/11/24 21:04 06/11/24 21:58 06/11/24 23:10 Temperature 98.0 F 98.3 F Pulse Rate Pulse Rate [Right Pulse Oximeter] 84 85 85 Respiratory Rate 16 16 Blood Pressure [Le ft Arm] Blood Pressure [Ri ght Arm] 92/62 100/69 Pulse Oximetry 95 95 Oxygen Delivery Me thod Room Air Room Air Oxygen Flow Rate 0 0 06/11/24 23:10 06/11/24 23:10 06/11/24 23:10 Temperature 97.9 F Pulse Rate Pulse Rate [Right Pulse Oximeter] 92 92 Respiratory Rate 22 16 22 Blood Pressure [Le ft Arm] Blood Pressure [Ri ght Arm] 99/71 Pulse Oximetry 96 96 Oxygen Delivery Me thod Room Air Room Air Oxygen Flow Rate 0 06/12/24 00:02 06/12/24 02:30 06/12/24 02:30 Temperature 97.6 F Pulse Rate 89 Pulse Rate [Right Pulse Oximeter] 88 88 Respiratory Rate 18 Blood Pressure [Le ft Arm] Blood Pressure [Ri ght Arm] 102/87 Pulse Oximetry 99 Oxygen Delivery Me thod Room Air Oxygen Flow Rate 0 06/12/24 07:00 06/12/24 07:00 06/12/24 07:00 Temperature 97.5 F L Pulse Rate Pulse Rate [Right Pulse Oximeter] 94 94 94 Respiratory Rate 18 18 Blood Pressure [Le ft Arm] Blood Pressure [Ri ght Arm] 106/82 Pulse Oximetry 95 Oxygen Delivery Me thod Room Air Oxygen Flow Rate 06/12/24 07:00 06/12/24 07:41 06/12/24 11:00 Temperature 97.6 F Pulse Rate 107 H Pulse Rate [Right Pulse Oximeter] 95 Respiratory Rate 18 18 Blood Pressure [Le ft Arm] 82/56 L Blood Pressure [Ri ght Arm] 89/60 L Pulse Oximetry 95 97 Oxygen Delivery Me thod Room Air Room Air Oxygen Flow Rate 06/12/24 11:00 Temperature Pulse Rate Pulse Rate [Right Pulse Oximeter] 95 Respiratory Rate Blood Pressure [Le ft Arm] Blood Pressure [Ri ght Arm] Pulse Oximetry Oxygen Delivery Me thod Oxygen Flow Rate DS: Data Data Completed and Pending Labs on day of discharge: Labs from last 24 hours 06/12/24 07:46 Sodium 138 Potassium 4.3 Chloride 106 Carbon Dioxide 25 Anion Gap 7 BUN 24 Creatinine 1.0 Estimated Creat Clear 63.88 Estimated GFR 78 Glucose 90 Calcium 8.8 Total Bilirubin 1.6 H Direct Bilirubin 0.4 AST 51 H ALT 26 Alkaline Phosphatase 87 Total Protein 6.3 Albumin 3.8 Preliminary micro results at discharge 06/11/24 06:38 Urine Culture - Preliminary Urine,Clean Catch <10,000 COL/ML GRAM POSITIVE HUNTER Imaging CT scan - head: Radiologist's impression: CT scan of the head on 06/10/2024: 1. No acute intracranial abnormality. The known acute ischemic infarcts in the right frontal lobe and right insular cortex are not evident on the noncontrast CT due to differences in modality. 2. Moderate parenchymal volume loss and chronic small vessel ischemic changes. 3. Chronic lacunar infarcts in the left inferior cerebellum. Repeat CT scan of the head on 06/11/2024, after transient neurologic episode: 1. No CT evidence of an acute intracranial process. 2. No interval change compared to prior exam. CT angiogram of head and neck: Radiologist's impression: No intracranial proximal large vessel occlusion, flow-limiting luminal stenosis, or cerebral aneurysm. MR Brain: Radiologist's impression: 1. Small acute ischemic infarct in the right frontal lobe centrum semiovale. Additional larger region of subacute ischemia in the cortex of the right frontal lobe involving the operculum and right insular cortex. 2. 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 3. Moderate generalized parenchymal volume loss. Moderate chronic small vessel white matter ischemic changes. Dictated by Ramana Harrison MD @ 06/10/2024 6:43:13 PM ----- ADDENDUM ----- Addendum Report for Corrected Results: Given lack of corresponding T2 signal hyperintensity along the gyriform regions of diffusion restriction in the right frontal lobe and right insular cortex, findings may represent hyperacute ischemic infarcts. Discharge Plan Discharge Disposition: Home w/ Parent or Adult Date of Admission: 06/10/24 20:15 Attending Provider on Discharge: Luca Del Toro Consulting Providers: Meri Vale Primary Care Provider: Aiden Polanco Condition: Improved Anticipated Discharge Date/Time: 06/12/24 13:00 Discharge Medications: New Eliquis 5 mg Tablet 5 mg PO BID 30 Days Qty: 60 1RF metoprolol succinate 25 mg capsule,sprinkle,ER 24hr 25 mg PO DAILY Qty: 30 2RF Continued Centrum Silver 0.4 mg-300 mcg- 250 mcg tablet 1 tab PO DAILY allopurinol 100 mg tablet 200 mg PO DAILY Patient Comments: TAKE TWO TABLETS BY MOUTH DAILY* dapagliflozin propanediol [Farxiga] 5 mg tablet 5 mg PO DAILY Patient Comments: TAKE ONE TABLET BY MOUTH ONE TIME DAILY* rosuvastatin 10 mg tablet 10 mg PO HS Patient Comments: [NO ORIGINAL SIG] sertraline 50 mg tablet 50 mg PO DAILY Patient Comments: [NO ORIGINAL SIG] torsemide 10 mg tablet 10 mg PO DIRECTED PRN Patient Comments: TAKE ONE TABLET BY MOUTH DAILY NEEDED FOR WEIGHT GAIN OF 3LBS OVERNIGHT OR 5LBS OVER THE COURSE OF A WEEK torsemide 5 mg tablet 5 mg PO Q48H Patient Comments: [NO ORIGINAL SIG] Rx Instructions: Take 1 tablet every other day if no weight gain. If weight gain over 2 lbs overnight or over 4lbs in a week, start taking medication every day Discontinued metoprolol succinate [Toprol XL] 50 mg tablet extended release 24 hr 50 mg PO DAILY calcium carbonate-vitamin D2 600 mg calcium- 200 unit tablet 1 tab PO BID losartan 25 mg tablet 25 mg PO DAILY Patient Comments: [NO ORIGINAL SIG] spironolactone 25 mg tablet 25 mg PO DAILY Patient Comments: TAKE ONE TABLET BY MOUTH EVERY DAY IN THE MORNING.* warfarin 2 mg tablet 2 mg PO QDAY Qty: 114 0RF Protocol: Dose Management Condition: Saturday Dose/Route: 2 % Instruction: 1 x 2 % tablet Condition: Saturday Dose/Route: 4 % Instruction: 2 x 2 % tablets Condition: Saturday Dose/Route: 2 % Instruction: 1 x 2 % tablet Condition: Saturday Dose/Route: 4 % Instruction: 2 x 2 % tablets Condition: Dose/Route: 2 % Instruction: 1 x 2 % tablet Condition: Saturday Dose/Route: 4 % Instruction: 2 x 2 % tablets Condition: Saturday Dose/Route: 2 % Instruction: 1 x 2 % tablet Protocol Text: Adjustment Start Date: Saturday10/02/21 INR Value: 1.8 INR Date: 09/25/21 Recheck Date: 10/16/21 Patient Comments: 3mg every Sat,,Sat and 2mg all other days Rx Instructions: Archibald 2 MG, M 2 MG, Tu 4 MG, W 2 MG, Th 4 MG, F 2 MG, Sa 2 MG Discharge Orders: Discharge Order (Routine); Ordered 06/12/24 Ordered By: Luca Del Toro Patient Education: Metoprolol (By mouth), Apixaban (By mouth) (Eliquis), A-fib (Atrial Fibrillation) (DC), Mitral Regurgitation (DC), Self Care Measures After a Stroke (DC), Tricuspid Regurgitation (DC), Right Hemispheric Stroke (DC) Additional Instructions: 1. Follow up with PCP Dr. Polanco in 5-10 days. 2. Needs outpatient consultation with neurologist in 3-5 weeks, s/p right hemispheric stroke. 3. Needs follow-up with features reporter, Dr. Crowley, or one of Dr. Crowley's partners, in 1-3 weeks, for consultation of worsening mitral regurgitation and worsening tricuspid regurgitation. 4. Outpatient physical therapy, occupational therapy, and speech pathology to assess and treat. 5. Family and friends to assist with 24 hour supervision fo patient for next 1-3 weeks, and work with primary care physician to determine and address additional needs if warranted. 6. Waker for mobility at all times. 7. Home safety assessment. 8. Outpatient physical therapy and occupational therapy. Activity Level: No Restrictions and Activity as Tolerated Discharge Diet: Diabetic Follow Up Appointments: Aiden Polanco MD [Primary Care Provider] - 06/17/24 11:15 am ([facility] for follow-up.) Forms: [employer] Info Instructions
== END 2024-06-12 14:15 | disposition home or self-care (01) | DRG 65 ==
LOC: ED 19:24 → MEDSURG 20:00
PROVIDERS: Internal Medicine; Admitting Provider Family Medicine; Emergency Provider Student in an Organized Health Care Education/Training Program; PCP Student in an Organized Health Care Education/Training Program; Visit Provider Family Medicine
DX: I63.10 Cerebral infarction due to embolism of unspecified precerebral artery (principal); I42.8 Other cardiomyopathies; I50.30 Unspecified diastolic (congestive) heart failure; R79.1 Abnormal coagulation profile; I48.91 Unspecified atrial fibrillation; Z79.01 Long term (current) use of anticoagulants; I11.0 Hypertensive heart disease with heart failure; R13.10 Dysphagia, unspecified; R29.818 Other symptoms and signs involving the nervous system; R29.810 Facial weakness; R47.81 Slurred speech
CPT/HCPCS: 36415; 70450; 70496; 70498; 70551; 80048; 80053; 80061; 80076; 81001; 82077; 82565; 83036; 83735; 84484; 85025; 85610; 87086; 87631; 92526; 92610; 93005; 93306; 94761; 97116; 97162; 97165; 97535; 99285; A9270; J7030; J7120; Q9967

== ENCOUNTER 2024-07-29 11:28 | Emergency (ER) | payer MEDICARE, BC, SELFPAY ==
[2024-07-29 11:31] VITALS: BP 113/78; PULSE 89; RESP 18; TEMP 36.3; O2SAT 96; BMI 28.0
--- OUTSIDE RECORDS SUMMARY | 2024-07-29 11:31 | XMS_ITS | Clinical Summary ---
Author Organization [employer] [facility] Address [address] [place] [address] Care Team Providers Care Construction Quality Control Manager Name Role Phone [facility] [place] Unavailable [phone] Aiden Polanco MD Primary Care P rovider Allergies Active Allergy Reactions Criticality Noted Date Comments Morphine Itching 06/13/2006 Oxycodone-Acetaminophen Itching,Agitation 06/13 Medications calcium carbonate-vitami n D3, 600 mg-400 unit, 600 mg-10 mcg (400 unit) tabletIndication s:Takes dietary supplements Take 1 Tablet by mouth two times daily with meals. 200 Tablet 4 2 Active Additional Information Patient not taking.Reported on 06/17/2024 geriatric multivitamin-iro n-minerals (GERITOL; CENTRUM SILVER) tablet Take 1 Tablet by mouth once daily. 0 3 Active durable medical equipment (DME)Indications :Chronic atrial fibrillation (HC),Bilateral lower extremity edema Compression stockings. 16-20 mmHg. Knee high. 1 Each 3 Active spironolactone (ALDACTONE) 25 mg tabletIndication s:Chronic systolic heart failure (HC) Take 1 Tablet (25 mg) by mouth once daily in the morning. 90 Tablet 4 Active Additional Information Patient not taking.Reported on 06/17/2024 rosuvastatin (CRESTOR) 10 mg tabletIndication s:Coronary artery disease, unspecified vessel or lesion type, unspecified whether angina present, unspecified whether point hope ira or transplanted heart Take 1 Tablet (10 mg) by mouth at bedtime. 90 Tablet 3 4 Active sertraline (ZOLOFT) 50 mg tabletIndication s:Depression, recurrent Take 1 Tablet (50 mg) by mouth once daily in the morning. 90 Tablet 3 4 Active torsemide (DEMADEX) 5 mg tabletIndication s:Chronic systolic heart failure (HC) Take 1 Tablet (5 mg) by mouth once daily. Take 1 tablet every other day if no weight gain. If weight gain >2 lbs overnight or >4lbs in a week, start taking medication every day. 90 Tablet 4 Active metoprolol succinate (TOPROL XL) 50 mg sustained-releas e tabletIndication s:Atrial fibrillation with RVR (HC) Take 1 Tablet (50 mg) by mouth once daily. 5 Active losartan (COZAAR) 25 mg tabletIndication s:Chronic heart failure with preserved ejection fraction (HC) TAKE ONE TABLET BY MOUTH ONE TIME DAILY 90 Tablet 3 5 Active Additional Information Patient not taking.Reported on 06/17/2024 Farxiga 5 mg tabletIndication s:Chronic systolic heart failure (HC) Take 1 Tablet (5 mg) by mouth once daily. 90 Tablet 5 Active allopurinoL 100 mg tablet Take 2 Tablets by mouth once daily. 5 Active Eliquis 5 mg tabletIndication s:Chronic atrial fibrillation (HC) Take 1 Tablet (5 mg) by mouth two times daily. 180 Tablet 1 5 Active Active Problems Problem Noted Date Diagnosed Date Ischemic stroke 06/16/2024 Overview (06/16/2024): R frontal. 05/2024 Moderate dementia, unspecifi ed dementia type, unspecified whether behavioral, psychotic, or mood disturbance or anxiety 05/07/2023 Hereditary hemochromatosis 08/06/2022 Chronic atrial fibrillation 01/20/2021 Assessment & Plan (04/02/2022 11:45 AM ARMED SECURITY OFFICER): Has had RVR recently. Cyst of pancreas [...] Problem Noted Date Diagnosed Date Resolved Date Anticoagulation monitoring, INR range 2-3 11/05/2023 06/17/2024 Elevated ferritin 06/25/2022 03/20/2024 Cognitive impairment 03/27/2022 025 Overview (03/28/2022): LACL administered with pt scoring 5.0 - this level is considered mild cognitive impairment. At this level [id number] problem solving is intact, they may have [...] Encounters Date Type Department Care Team Description 07/29/2024 Nurse Triage [facility] [address] [place] [address] Aiden Polanco MD Arm Laceration 06/24/2024 Telephone [facility] [address] [facility] [place] [address] Aiden Polanco MD Form (FMLA/) 06/23/2024 E-Visit [facility] [address] [facility] [address] Aiden Polanco MD FMLA 06/18/2024 E-Visit [facility] [address] [facility] [address] Aiden Polanco MD Heart medications 06/18/2024 Telephone [facility] [address] [place] [address] Aiden Polanco MD Anticoagulation (CHART UPDATE ) 06/17/2024 11:15 AM CDT Office Visit [facility] [address] [place] [address] Aiden Polanco MD Hospital F/U (06/12/24 stroke/Neuro consult ) 06/17/2024 Travel 06/15/2024 Orders Only [facility] Scanner 1 scan: (1-Ord) INCOMING RECORDS-EKG, [facility], 06/15/2024 06/15/2024 Orders Only [facility] Scanner 1 scan: (1-Ord) INCOMING RECORDS-MRI, [facility], 06/15/2024 06/15/2024 Orders Only [facility] Scanner 1 scan: (1-Ord) INCOMING RECORDS-CT, [facility], 06/15/2024 06/15/2024 Orders Only [facility] Scanner 1 scan: (1-Ord) INCOMING RECORDS-LABS, [facility], 06/15/2024 06/12/2024 8:00 AM CDT Ancillary Procedure [facility] [address] [place] [address] 06/12/2024 Office Visit [facility] [address] [place] [address] Meri Tobin DO Telehealth ([place] telestroke) 06/11/2024 Orders Only [facility] Scanner 1 scan: (1-Ord) [facility], CT HEAD/BRAIN WO CON, 06/11/2024 06/11/2024 Office Visit [facility] [address] [place] [address] Meri Tobin DO Telehealth (TELE STROKE [place] ) 06/11/2024 Office Visit [facility] [address] [place] [address] Michell Salomon MD 06/10/2024 Orders Only [facility] Scanner 1 scan: (1-Ord) [facility], MR HEAD/BRAIN WO CON, 06/10/2024 06/10/2024 Orders Only [facility] Scanner 1 scan: (1-Ord) [facility], CT HEAD/BRAIN WO CON, 06/10/2024 06/10/2024 Orders Only [facility] Scanner 1 scan: (1-Ord) [facility], CT ANGIO NECK, 06/10/2024 06/10/2024 Orders Only [facility] Scanner 1 scan: (1-Ord) [facility], CT ANGIO HEAD, 06/10/2024 06/09/2024 Telephone [facility] [address] [place] [address] Aiden Polanco MD Form 05/12/2024 10:30 AM ARMED SECURITY OFFICER Office Visit [facility] [address] [place] [address] Allen Crowley MD Follow Up (Chronic heart failure with preserved ejection fraction ) 05/12/2024 Refill [facility] [address] [place] [address] Aiden Polanco MD Refill Request (Warfarin) 05/12/2024 Travel 05/08/2024 Telephone [facility] [address] [place] [address] Desirae Campos DO NOTES (VISIT NOTES) 05/03/2024 Refill [facility] [address] [place] [address] Aiden Polanco MD Refill Request (Farxiga) from Last 3 Months Immunizations Immunization Administration [...] on file Legal Sex Male 6:14 AM ARMED SECURITY OFFICER Gender Identity Not on file Sexual Orientation Not on file Obstetrics History Last Filed Vital Signs Vital Sign Reading Time Taken Comments Blood Pressure 117/79 06/17/2024 11:08 AM CDT Pulse 74 06/17/2024 11:08 AM CDT Temperature 35.3 C (95.6 F) 04/24/2022 3:51 PM ARMED SECURITY OFFICER Respiratory Rate 14 04/24/2022 2:23 PM ARMED SECURITY OFFICER Oxygen Saturation 95% 06/17/2024 11:08 AM CDT Inhaled Oxygen Concentration - - Weight 79.1 kg (174 lb 4.8 oz) 06/17/2024 11:08 AM CDT Height 177.8 cm (5' 10) 05/07/2023 2:42 PM ARMED SECURITY OFFICER Body Mass Index 25.01 05/07/2023 2:42 PM ARMED SECURITY OFFICER Plan of Treatment Upcoming Encounters Date Type Department Care Team (Late st Contact Info) Description 08/11/2024 10:00 AM CDT Office Visit [facility] [address] [place] [address] [place] [address] [facility] [address] [place], [place] [id number] Health Maintenance Due Date Last Done Comments Depression screening for age 12+ 1957 RSV vaccine for adults or (1 - 1-dose 75+ series) 2021 COVID-19 vaccine series (2023- season) 2023 06/18/2020, 05/28/2020 BMI (ht and wt on same day) for age 18+ 05/07/2024 05/07/2023, 04/16/2023, 02/11/2023, Additional history exists Medicare Wellness for age 65+ 05/07/2024 05/07/2023, 03/22/2022 Tetanus booster 12/25/2029 12/26/2019, 07/0 10/2010, 12/16/2000, Additional history exists Zoster (shingles) series for age 50+ Completed 10/07/2017, 07/18/2017, 09/28/2010 Tdap Completed 12/26/2019, 09/22/2010 Hepatitis C screening for ag e 18-79 Completed 03/22/2022 Pneumococcal series for age 50+ Completed 03/22/2022, 11/25/2017, 08/28/2011 Influenza Vaccine Completed 03/20/2024, , 01/03/2019, Additional history exists Procedures Procedure Name Priority Date/Time Associated Diagnosis Comments SCAN CORRESP-EKG RESULTS 06/15/2024 12:00 AM CDT SCAN CORRESP-LABORATORY RESULTS 06/15/2024 12:00 AM CDT SCAN CORRESP-IMAGING 06/15/2024 12:00 AM CDT SCAN CORRESP-IMAGING 06/15/2024 12:00 AM CDT ECHO TTE COMPLETE WO CONTRAST Routine 06/12/2024 8:26 AM CDT Stroke (HC) A-fib (HC) SCAN-CT INTERPRETATION 5 12:00 AM CDT SCAN-MRI INTERPRETATION 06/11/19 25 12:00 AM CDT SCAN-CT INTERPRETATION 5 12:00 AM CDT SCAN-CT INTERPRETATION 5 12:00 AM CDT SCAN-CT INTERPRETATION 5 12:00 AM CDT LC HCV ANTIBODY RFX TO QUANT PCR Routine 03/22/2022 11:13 AM ARMED SECURITY OFFICER Need for hepatitis C screening test from Last 3 Months or Most Recently Relevant to Health Maintenance Results * SCAN CORRESP-LABORATORY RESULTS (06/15/2024 12:00 AM CDT) us Scanner OTHER Final Result * SCAN CORRESP-EKG RESULTS (06/15/2024 12:00 AM CDT) us Scanner OTHER Final Result * SCAN CORRESP-IMAGING (06/15/2024 12:00 AM CDT) Only the most recent of2 resultswithin the time period is included. Anatomical Region Laterality Modality Other us Scanner OTHER Final Result * ECHO TTE COMPLETE WO CONTRAST (06/12/2024 8:26 AM CDT) AORTIC VALVE MEAN PG 7 mmHg EJECTION FRACTION 50 % PEAK TR VELOCITY 3.3 m/s LVEDD 6.0 cm MITRAL VALVE MR ERO 355 mm2 EJECTION FRACTION 55 - 60% Anatomical Region Laterality Modality Ultrasound 06/12/2024 7:51 AM CDT Narrative 06/12/2024 8:44 AM CDT ECHOCARDIOGRAM TIAN JULES : 1945 78 years Study Date: 06/12/2024 7:51:00 AM Gender: M BP: 102/87 mmHg Height: 178.00 cm BSA: 1.95 m Weight: 77.00 kg Tech: YAKOV Referring MD: EDWARDO DEL TORO Site: [facility] Reading Location: Mobile- Patient Location: Inpatient. Procedure: 2D, Color Doppler and Spectral Doppler. Indication for study: Stroke (HC); A-fib Cardiac Rhythm: Atrial fibrillation.Study quality: Good. Final Impressions: 1. Mildly increased LV size, borderline wall thickness, normal global systolic function with an estimated EF of 55 - 60%. 2. Massively enlarged left and right atria. 3. Right ventricular cavity size is normal, global systolic RV function is borderline reduced. 4. The aortic valve is trileaflet and calcified, no stenosis and mild regurgitation. 5. 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 Mean gradient 3.5 mmHg at HR 103 bpm. 6. 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 7. Trivial pericardial effusion. Chamber Sizes and Function Mildly increased left ventricular size, borderline wall thickness, normal global systolic function with an estimated EF of 55 - 60%. No resting regional wall motion abnormality visualized. Left atrial size is severely enlarged. Right ventricular cavity size is normal, global systolic RV function is borderline reduced. RV wall thickness is normal. The right atrium is severely enlarged. Right atrial volume index is 56 ml/m . Right atrial area is 35 cm . The pulmonary artery is not well visualized. The sinus of Valsalva is normal sized. The ascending aorta is normal sized. Valves, RV Pressures and Diastolic Function The aortic valve is trileaflet and calcified, no stenosis and mild regurgitation. 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 Indeterminate pattern of LV diastolic filling. 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 The tricuspid regurgitant velocity is 3.2 m/s, the estimated right ventricular systolic pressure is 42 mmHg plus right atrial pressure. The pulmonic valve is normal. No pulmonary regurgitation. Masses, Effusion, Shunts There is trivial pericardial effusion. The inferior vena cava is dilated, respiratory size variation less than 50%. No left to right shunting was detected by limited color flow Doppler interrogation of the interatrial septum. MEASUREMENTS AND CALCULATIONS 2-D Measurements and LV Function: LVID (d) 6.0 cm LV FS% (2D) 28 % LVID (s) 4.3 cm LVOT diameter 2.4 cm IVS (d) 1.0 cm HR 99 bpm LVPW (d) 1.1 cm LA Vol index 177 ml/m2 Ao Sinus 3.0 cm RA Vol index 56 ml/m2 Ao Sinus ULN 4.1 cm RA area 35 cm Asc Ao 3.9 cm RV Basal Diam 4.0 cm Asc Ao ULN 4.3 cm RV Mid Diam 2.7 cm LA 7.7 cm Diastology: Mitral Tissue Doppler E Peak 2.0 m/s e', Septum 0.05 m/s DT 162 msec e', Lateral 0.09 m/s E/e' Average 27.31 Aortic Valve: Vmax 1.6 m/s JESS (V) 1.73 cm VTI 0.28 m JESS (I) 1.70 cm LVOT V max 0.6 m/s Max PG 10 mmHg LVOT VTI 0.10 m Mean PG 7 mmHg SV 47 ml Dim Index 0.37 SV index 24 ml/m CO 4.6 l/min CI 2.4 l/min/m Mitral Valve: MVA 4.7 cm MR ERO 3.55 cm MV P 1/2 47 msec MR Vol. 547 ml MV Mean G 4 mmHg MR TVI 1.54 m MV VTI 0.31 m Tricuspid Valve and estimated PA pressures: TR Vmax 3.2 m/s TAPSE 2.1 cm TR maxG 42 mmHg TV Annulus 3.1 cm . This study was interpreted by an [facility] accredited facility. CC: HIM (med records) [facility], Med/Surg - IP [facility]. Final Procedure Note Rose Marie Daly MD - 06/12/2024 ECHOCARDIOGRAM TAIN JULES : 1945 78 years Study Date: 06/12/2024 7:51:00 AM Gender: M BP: 102/87 mmHg Height: 178.00 cm BSA: 1.95 m Weight: 77.00 kg Tech: YAKOV Referring MD: EDWARDO DEL TORO Site: [facility] Reading Location: [place]- Patient Location: Inpatient. Procedure: 2D, Color Doppler and Spectral Doppler. Indication for study: Stroke (HC); A-fib Cardiac Rhythm: Atrial fibrillation.Study quality: Good. Final Impressions: 1. Mildly increased LV size, borderline wall thickness, normal globalsystolic function with an estimated EF of 55 - 60%. 2. Massively enlarged left and right atria. 3. Right ventricular cavity size is normal, global systolic RV functionis borderline reduced. 4. The aortic valve is trileaflet and calcified, no stenosis and mildregurgitation. 5. 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 Mean gradient 3.5 mmHg at HR 103 bpm. 6. 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 7. Trivial pericardial effusion. Chamber Sizes and Function Mildly increased left ventricular size, borderline wall thickness, normalglobal systolic function with an estimated EF of 55 - 60%. No restingregional wall motion abnormality visualized. Left atrial size is severelyenlarged. Right ventricular cavity size is normal, global systolic RVfunction is borderline reduced. RV wall thickness is normal. The rightatrium is severely enlarged. Right atrial volume index is 56 ml/m . Rightatrial area is 35 cm . The pulmonary artery is not well visualized. Thesinus of Valsalva is normal sized. The ascending aorta is normal sized. Valves, RV Pressures and Diastolic Function The aortic valve is trileaflet and calcified, no stenosis and mildregurgitation. The mitral valve is myxomatous and repaired with aMitraClip, severe mitral regurgitation. Indeterminate pattern of LVdiastolic filling. The tricuspid valve is myxomatous and severe tricuspidregurgitation. The tricuspid regurgitant velocity is 3.2 m/s, theestimated right ventricular systolic pressure is 42 mmHg plus right atrialpressure. The pulmonic valve is normal. No pulmonary regurgitation. Masses, Effusion, Shunts There is trivial pericardial effusion. The inferior vena cava is dilated,respiratory size variation less than 50%. No left to right shunting wasdetected by limited color flow Doppler interrogation of the interatrialseptum. MEASUREMENTS AND CALCULATIONS 2-D Measurements and LV Function: LVID (d) 6.0 cm LV FS% (2D) 28 % LVID (s) 4.3 cm LVOT diameter 2.4 cm IVS (d) 1.0 cm HR 99 bpm LVPW (d) 1.1 cm LA Vol index 177 ml/m2 Ao Sinus 3.0 cm RA Vol index 56 ml/m2 Ao Sinus ULN 4.1 cm RA area 35 cm Asc Ao 3.9 cm RV Basal Diam 4.0 cm Asc Ao ULN 4.3 cm RV Mid Diam 2.7 cm LA 7.7 cm Diastology: Mitral Tissue Doppler E Peak 2.0 m/s e', Septum 0.05 m/s DT 162 msec e', Lateral 0.09 m/s E/e' Average 27.31 Aortic Valve: Vmax 1.6 m/s JESS (V) 1.73 cm VTI 0.28 m JESS (I) 1.70 cm LVOT V max 0.6 m/s Max PG 10 mmHg LVOT VTI 0.10 m Mean PG 7 mmHg SV 47 ml Dim Index 0.37 SV index 24 ml/m CO 4.6 l/min CI 2.4 l/min/m Mitral Valve: MVA 4.7 cm MR ERO 3.55 cm MV P 1/2 47 msec MR Vol. 547 ml MV Mean G 4 mmHg MR TVI 1.54 m MV VTI 0.31 m Tricuspid Valve and estimated PA pressures: TR Vmax 3.2 m/s TAPSE 2.1 cm TR maxG 42 mmHg TV Annulus 3.1 cm . This study was interpreted by an [facility] accredited facility. CC: HIM (med records) [facility] Final us Edwardo Del Toro MD ECHO ORD Final Resu lt * SCAN-CT INTERPRETATION (06/11/2024 12:00 AM CDT) Only the most recent of4 resultswithin the time period is included. Anatomical Region Laterality Modality Other us Scanner OTHER Final Result * SCAN-MRI INTERPRETATION (06/10/2024 12:00 AM CDT) Anatomical Region Laterality Modality Other us Scanner OTHER Final Result * LC HCV ANTIBODY RFX TO QUANT PCR (03/22/2022 11:13 AM ARMED SECURITY OFFICER) HCV Ab <0.1 0.0 - 0.9 s/co ratio 03/24/2022 2:07 PM ARMED SECURITY OFFICER [facility] Blood BLOOD SPECIMEN / Unknown Venipuncture / Unknown 03/22/2022 11:13 AM ARMED SECURITY OFFICER 03/22/2022 11:16 AM ARMED SECURITY OFFICER Narrative [facility] - 03/24/2022 2:07 PM ARMED SECURITY OFFICER Performed at: [address] [place] [id number] Business Unit Manager: Hany Tello MD, Phone: [phone] us Desirae Campos DO LABORATORY Final Result [facility] ([facility]) [facility] [place] [address], from Last 3 Months or Most Recently Relevant to Health Maintenance Insurance MEDICARE PB ONLY MEDICARE PART B HB ONLY MEDICARE PART A HB ONLY [facility] FED EMP MEDICARE PPS Advance Directives Documents on File Type Date Recorded Patient Principal Cloud Architect Expl anation POLST 04/06/2022 1:45 PM POLST [...] Code Status Discussion: Not Discussed Care Teams Construction Quality Control Manager Relationship Specialty Start Date End Date Aiden Polanco MD [address] [place] [address] PCP - General Family Practice 01/10/24 Clinic, [place] [id number] [address] Cardiology - CHF 02/11/23
--- OUTSIDE RECORDS SUMMARY | 2024-07-29 11:31 | XMS_ITS | Clinical Summary ---
Author Organization [facility] Address [address] [place] [address] Care Team Providers Care Legal Writing Professor Name Role Phone Delmer Polanco MD Primary Care Provider + Allergies Active Allergy Reactions Criticality Noted Date Comments Morphine Itching 06/13/2006 Oxycodone-Acetaminophen Itching 06/13/2006 Other Reaction(s): Agitation Medications ELIQUIS 5 mg oral tablet TAKE ONE TABLET BY MOUTH TWICE DAILY* Active allopurinol (ZYLOPRIM) 100 mg oral tablet Take 2 tablets (200 mg) by mouth Daily. 5 Active FARXIGA 5 mg oral tablet Take 1 tablet (5 mg) by mouth Daily. 5 Active losartan (COZAAR) 25 mg oral tablet TAKE ONE TABLET BY MOUTH ONE TIME DAILY* Active metoprolol succinate, XL, (TOPROL XL) 50 mg oral extended release tablet 24 HR Take 1 tablet (50 mg) by mouth Daily. 5 Active rosuvastatin (CRESTOR) 10 mg oral tablet Take 1 tablet (10 mg) by mouth Daily. 4 Active sertraline (ZOLOFT) 50 mg oral tablet TAKE ONE TABLET BY MOUTH EVERY DAY IN THE MORNING.* Active torsemide (DEMADEX) 5 mg oral tablet Take 1 tablet (5 mg) by mouth Daily. 4 Active spironolactone (ALDACTONE) 25 mg oral tablet Take 1 tablet (25 mg) by mouth Daily. 4 07/22/19 Discontinued Active Problems Problem Noted Date Diagnosed Date Gout, unspecified 07/21/2024 Hypertension 07/21/2024 Ischemic stroke 06/16/2024 Overview (07/21/2024): R frontal. 05/2024 Hereditary hemochromatosis 08/06/2022 Chronic atrial fibrillation 01/20/2021 Cyst of pancreas 12/29/2020 Overview (07/21/2024): There is a low attenuating lesion in the body of the pancreas measuring 8 mm in diameter (image 296 of series 4), which may be a side branch intraductal papillary mucinous neoplasm (IPMN) or a simple cyst from CTA 12/21. GI recommends repeat pancreatic imaging in 1 year (12/29/20) Chronic heart failure with preserved ejection fr action 12/27/2020 CKD (chronic kidney disease) stage 3, GFR 30-59 ml/min 12/27/2020 Mitral regurgitation 12/27/2020 Encounters Date Type Department Care Team Description 07/21/2024 3:30 PM CDT Office Visit [facility] - [address] [place] [address] Mikael Tyson MD Cerebrovascular accident (CVA), unspecified mechanism (HCC) (Primary Dx); Cognitive changes from Last 3 Months Social History Tobacco Use Types Packs/Day Years Used Date Smoking Tobacco: Never Smokeless Tobacco: Never Tobacco Cessation:Counseling Given: Not Answered Alcohol Use Standard Drinks/Week Comments Not Currently 0 (1 standard drink = 0.6 oz pur e alcohol) Sex and Gender Information Value Date Recorded Sex Assigned at Not on file Legal Sex Male 10:21 AM CDT Gender Identity Not on file Sexual Orientation Not on file Plan of Treatment Health Maintenance Due Date Last Done Comments Colonoscopy 1945 Hepatitis C Screening 1945 Depression Assessment (PHQ-2) 08/30/1946 Yearly Review of HCD 1996 RSV Vaccines (1 - 1-dose 75+ series) 2021 COVID-19 Vaccine (3 - 2023-2 5 season) 2023 06/18/2020, 05/28/2020 Medicare Wellness Visit 05/07/2024 05/07/2023, 03/22 Adult Tetanus Booster 12/25/2029 12/26/2019 , 09/22/2010, 12/16/2000, Additional history exists Zoster Vaccine Completed 10/07/2017, 07/16, 07/18/2017, Additional history exists Pneumococcal 50+ Years Completed , 11/25/2017, 08/28/2011 Influenza Vaccine Completed 03/20/2024, , 01/12/2020, Additional history exists Insurance [facility] [employer] MEDICARE PART A & B Care Teams Legal Writing Professor Relationship Specialty Start Date End Date Delmer Polanco MD [address] [place] [address] [place] [id number] PCP - General Family Medicine - 06/24/24
--- OUTSIDE RECORDS SUMMARY | 2024-07-29 11:31 | XMS_ITS | Referral Summary ---
Author Organization [facility] Address [address] [place] [id number] Care Team Providers Care Hand Glove Cleaner Name Role Phone Delmer Polanco MD Primary Care Provider + Encounters Date Type Department Care Team Description 07/21/2024 3:30 PM CDT Office Visit [facility] [address] [place] [address] Mikael Tyson MD Cerebrovascular accident (CVA), unspecified mechanism (HCC) (Primary Dx); Cognitive changes from Last 3 Months Allergies Active Allergy Reactions Criticality Noted Date [...] 1 tablet (5 mg) by mouth Daily. Active spironolactone (ALDACTONE) 25 mg oral tablet Take 1 tablet (25 mg) by mouth Daily. 4 07/22/19 25 Discontinued Active Problems Problem Noted Date Diagnosed [...] GFR 30-59 ml/min 12/27/2020 Mitral regurgitation 12/27/2020 Social History Tobacco Use Types Packs/Day Years [...] Orientation Not on file Plan of Treatment Not on file Insurance [facility] [employer] MEDICARE PART A & B Care Teams Hand Glove Cleaner Relationship Specialty Start Date End Date Delmer Polanco MD 5 [facility] [place] Cook [id number] PCP - General Family Medicine - 06/24/24
--- OUTSIDE RECORDS SUMMARY | 2024-07-29 11:31 | XMS_ITS | Encounter Summary ---
Author Organization [facility] Address [address] [place] [address] Care Team Providers Care Certified Legal Investigator Name Role Phone Delmer Polanco MD Primary Care Provider + Reason for Referral * Other (Routine) - Open Specialty Diagnoses / Procedures Referred By Contac t Referred To Contact Diagnoses Cognitive changes Procedures [facility] APPOINTMENT Mikael Tyson MD [address] [place] [address] [place] [id number] Phone: tel: fax: Referral ID Status Reason Start Date Expiration Date Visits Re quested Visits Authorized [id number] Open 01/21/2025 1 1 Reason for Visit * Reason Comments Consultation Encounter Details Date Type Department Care Team (Late st Contact Info) Description 07/21/2024 3:30 PM CDT Office Visit [facility] - [address] [place] [phone] Mikael Tyson MD [address] [place] [address] [place] [id number] Cerebrovascular accident (CVA), unspecified mechanism (HCC) (Primary Dx); Cognitive changes Social History Tobacco Use Types Packs/Day Years [...] on file Sexual Orientation Not on file documented as of this encounter Progress Notes * Mikael Tyson MD - 07/21/2024 3:30 PM CDT Chief Complaints: Chief Complaint Patient presents with Consultation History of Present Illness: 78 year old male presents to follow up from a hospital encounter (see below). He is accompanied by grandson He relates how [id number] called the police, but he is relating some police encounter. Grandson clarifies how grandmother was taken out of the home 2 years ago because she had Lewy Body Dementia. This did happen, it was a traumatic event, but unrelated to why he is here. Clarisa notes that he always was one to mumble and be soft-spoken. On June 02, [id number] contacted him because he was much more quiet than usual. He sounded very weak. He seemed to be in good spirits, but when tried to drink water it dribbled out of his mouth, he had some left facial droop. After 3-4 days, the speech started to improve. It continues to improve week by week. Darrin notes he feels weak in general. But no specific symptoms. No recent illnesses - no fevers ,weight loss, vision changes He had a bad fall in April, he works with physical therapy weekly Past Medical History/Past Surgical History: Past Medical History: Diagnosis Date A-fib (HCC) Cerebral artery occlusion with cerebral infarction (HCC) CKD (chronic kidney disease) Essential hypertension, benign Gout Heart failure (HCC) Hereditary hemochromatosis (HCC) Mitral regurgitation Past Surgical History: Procedure Laterality Date MITRAL VALVE REPAIR, INITIAL PROSTHESIS Allergies Allergen Reactions Morphine Itching Oxycodone-Acetaminophen Itching Other Reaction(s): Agitation Current Outpatient Medications Medication Sig Dispense Refill allopurinol (ZYLOPRIM) 100 mg oral tablet Take 2 tablets (200 mg) by mouth Daily. ELIQUIS 5 mg oral tablet TAKE ONE TABLET BY MOUTH TWICE DAILY* FARXIGA 5 mg oral tablet Take 1 tablet (5 mg) by mouth Daily. losartan (COZAAR) 25 mg oral tablet TAKE ONE TABLET BY MOUTH ONE TIME DAILY* metoprolol succinate, XL, (TOPROL XL) 50 mg oral extended release tablet 24 HR Take 1 tablet (50 mg) by mouth Daily. rosuvastatin (CRESTOR) 10 mg oral tablet Take 1 tablet (10 mg) by mouth Daily. sertraline (ZOLOFT) 50 mg oral tablet TAKE ONE TABLET BY MOUTH EVERY DAY IN THE MORNING.* torsemide (DEMADEX) 5 mg oral tablet Take 1 tablet (5 mg) by mouth Daily. No current facility-administered medications for this visit. Social History: Social History Socioeconomic History Marital status: Spouse name: Not on file Number of children: Not on file Years of education: Not on file Highest education level: Not on file Occupational History Not on file Tobacco Use Smoking status: Never Smokeless tobacco: Never Substance and Sexual Activity Alcohol use: Not Currently Drug use: Never Sexual activity: Not on file Other Topics Concern Not on file Social History Narrative Not on file Social Drivers of Health Financial Resource Strain: Low Risk (11/05/2023) [facility] from [facility] Financial Resource Strain Difficulty of Paying Living Expenses: 3 Difficulty of Paying Living Expenses: Not on file Food Insecurity: No Food Insecurity (11/05/2023) Re[facility] from [facility] Food Insecurity Do you worry your food will run out before you are able to buy more?: 1 Transportation Needs: No Transportation Needs (11/05/2023) Received from [facility] Transportation Needs Does lack of transportation keep you from medical appointments?: 1 Does lack of transportation keep you from work, meetings or getting things that you need?: 1 Physical Activity: Not on file Stress: Not on file Social Connections: Socially Integrated (11/05/2023) Received from [facility] Social Connections Do you often feel lonely or isolated from those around you?: 0 Intimate Partner Violence: Not on file Housing Stability: Low Risk (11/05/2023) Received from [facility] Housing Stability What is your housing situation today?: 1 Family History: No family history on file. Imaging, Tests, Records Reviewed [facility] records TTE (05/2024) - massively enlarged left and right atria, myxomatous mitral valve s/p repair, severe mitral regurg, severe tricuspid regurg 06/11/2024 - inpatient - telestroke neuro - presenting with worsening slurred speech and new left facial droop (has baseline slurred speech and unsteadiness). MRI with small acute ischemic infarct right frontal lobe and larger subacute ischemia operculum / right insular cortex. Patchy infarcts likely cardioembolic with afib and subtherapeutic INR. No large vessel stenosis / occlusion on CTA. Physical Examination: NEUROLOGICAL: MENTAL STATUS: Alert . Follows commands appropriately. Speech very soft, likely mild residual aphasia CN: II: Visual lemon intact. PERRLA. III, IV, : EOMI. Normal saccades. V: Symmetric facial sensation to light touch. VII: Left eye ptosis is stated baseline, mild left lower facial weakness XII: Tongue midline with symmetric movements. MOTOR: +bilateral kinetic tremor RIGHT UE: LEFT UE Deltoid 5/5 5/5 Biceps 5/5 5/5 Triceps 5/5 5/5 Finger abd 5/5 5/5 RIGHT LE: LEFT LE: HF 5/5 5/5 KE 5/5 5/5 PF 5/5 5/5 DF 5/5 5/5 REFLEXES: RIGHT: LEFT: Biceps 2/4 2/4 Brachioradialis 2/4 2/4 Triceps 3/4 2/4 Reflexes are very difficult to elicit in the upper extremities. Technical factors such as difficulty relaxing his limbs may be playing a significant role in this. SENSATION: Light touch intact and symmetric. CEREBELLAR: Normal F-N-F (except for tremor). No nystagmus. GAIT: Mildly unsteady primary gait, shortened stride lengths Impressions: 78 year old male presents to follow up on a hospital encounter in May. This was for a worsening of his baseline slurred speech and new left facial droop. Multifocal right frontal strokes appreciated, very likely to be cardioembolic with INR (on warfarin) subtherapeutic. Nothing further needed from a stroke standpoint, workup was completed in the hospital. He was switched to Eliquis and will stay with this. Goals for PCP follow up wwould be. I offered a speech therapy referral, but they think speech now at baseline and not interested in addressing his quiet speech currently. - BP < 130/80 - LDL < 70 - A1c < 7 There is also the matter of cogntive decline, which has been progressing in recent years. Offered neuropsych testing but they deferred (unlikely to loom changer regardless). He is already working with PT. I also thought OT could be considered, he lives at home alone but there are a number of grandchildren involved apparently and recently hired caregiver as well. So they do not think this is needed. I noted that it would be recommended to call the [facility] social studies department chair to see if there wereany further resources that could be brought to bear. He does have a lot of hesitance towards this sort of involvement given a rather traumatic experience with his who has Lewy Body Dementia and was taken from the home. They will keep this in mind, but again, feel that situation is manageable currently. Will hold off on starting donepezil for now, but probably will consider at next visit Follow up 3-6 months I am the single focal point of care for a condition that requires longitudinal relationship and personalized care for condition(s) specified within this medical record. I spent 49 minutes on the date of encounter with the patient and before and after the visit on activities detailed in the above note which may include reviewing the EMR, documenting clinical information, and communicating with other health reproductive healthcare assistant. Mikael Tyson MD MIPS 3. Patient has had no falls in calendar year - already working with PT documented in this encounter Plan of Treatment Not on file documented as of this encounter Visit Diagnoses Diagnosis Cerebrovascular accident (CVA), unspecified mechanism (HCC)- Primary Cognitive changes Other signs and symptoms involving cognition documented in this encounter Care Teams Certified Legal Investigator Relationship Specialty Start Date End Date Delmer Polanco MD [address] [place] [address] [place] [id number] PCP - General Family Medicine - 06/24/24 documented as of this encounter
--- NOTE | 2024-07-29 12:04 | ED_ITS ---
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 He did not hit his head or have loss of consciousness. He is on anticoagulants, Eliquis, because of atrial fibrillation. Related Data Home Medications ?Medication ?Instructions ?Recorded ?Confirmed allopurinol 100 mg tablet 200 mg PO DAILY 01/20/24 07/29/24 dapagliflozin propanediol 5 mg 5 mg PO DAILY 01/20/24 07/29/24 tablet (Farxiga) rosuvastatin 10 mg tablet 10 mg PO HS 01/20/24 07/29/24 sertraline 50 mg tablet 50 mg PO DAILY 01/20/24 07/29/24 torsemide 10 mg tablet 10 mg PO DIRECTED PRN 01/20/24 07/29/24 torsemide 5 mg tablet 5 mg PO Q48H 01/20/24 06/11/24 [id number] acid 0.4 1 tab PO DAILY 06/11/24 07/29/24 mg-lycopene 300 mcg-lutein 250 mcg tablet (Centrum Silver) losartan 25 mg tablet 25 mg PO DAILY 07/29/24 07/29/24 Previous Rx's ?Medication ?Instructions ?Recorded apixaban 5 mg tablet (Eliquis) 5 mg PO BID 30 days #60 tabs 06/12/24 metoprolol succinate 25 mg capsule 25 mg PO DAILY #30 ea 06/12/24 sprinkle, ext. release 24 hr Allergies Allergy/AdvReac Type Severity Reaction Status Date / Time morphine Allergy Mild itchy Verified 07/29/24 11:37 latex Allergy Unknown Verified 07/29/24 11:37 OXYCODONE-ACETAMINOPHEN Allergy Intermediate increased Uncoded 06/10/24 18:42 anxiety Pain Meds AdvReac Mild anxious Uncoded 06/10/24 18:42 Review of Systems Status of ROS: Reports: 10 or more systems reviewed and unremarkable except as noted in History and below Narrative: Constitutional: No fevers, no weight gain or loss. Eyes: No discharge. No vision changes. HENT: No congestion, no sore throat, no ear pain. Cardiovascular: No chest pain, no palpitations. Respiratory: No shortness of breath, no wheezes, no cough. Gastrointestinal: No abdominal pain, no vomiting, no diarrhea. Genitourinary: No dysuria, no hematuria. Musculoskeletal: Normal range of motion. Skin: No rashes, no pruritis. Left elbow injury as described above. Neurological: No dizziness, weakness, sensory change, speech change. Endo/Heme/Allergies: No bruising or bleeding. No polydipsia. Pysch: no suicidality, no anxiety, no insomnia. All other systems reviewed and are negative. [facility] Medical History (Updated 07/29/24 @ 12:08 by Cayetano Abraham MD) Swallowing difficulty ?R13.10 - Dysphagia, unspecified (ICD-10) Counseling regarding advanced directives (08/28/17) ?Z71.89 - Other specified counseling (ICD-10) Long-term (current) use of anticoagulants, INR goal 2.0-3.0 ?Z79.01 - MCC (current) use of anticoagulants (ICD-10) Abdominal hernia ?K46.9 - Unspecified abdominal hernia without obstruction or gangrene (ICD- 10) Anticoagulation goal of INR 2 to 3 ?Z51.81 - Encounter for therapeutic drug level monitoring (ICD-10) ?Z79.01 - client service administrator (current) use of anticoagulants (ICD-10) Anxiety ?F41.9 - Anxiety disorder, unspecified (ICD-10) Gastritis ?K29.70 - Gastritis, unspecified, without bleeding (ICD-10) Gout ?M10.9 - Gout, unspecified (ICD-10) Hemochromatosis (2008) ?E83.119 - Hemochromatosis, unspecified (ICD-10) Hypertension ?I10 - Essential (primary) hypertension (ICD-10) Small bowel obstruction due to adhesions ?K56.50 - Intestinal adhesions [bands], unspecified as to partial versus complete obstruction (ICD-10) Atrial fibrillation ?I48.91 - Unspecified atrial fibrillation (ICD-10) Heart failure with preserved ejection fraction ?I50.30 - Unspecified diastolic (congestive) heart failure (ICD-10) History of fracture of left ankle (2000) ?Z87.81 - Personal history of (healed) traumatic fracture (ICD-10) History of basal cell carcinoma (BCC) (07/17/18) ?Z85.828 - Personal history of other malignant neoplasm of skin (ICD-10) Surgical History (Updated 06/10/24 @ 21:31 by Armando Marvin MD) History of umbilical hernia repair (04/15/15) ?Z98.890 - Other specified postprocedural states (ICD-10) ?Z87.19 - Personal history of other diseases of the digestive system (ICD-10) History of mitral valve repair (12/30/20) ?Z98.890 - Other specified postprocedural states (ICD-10) History of cholecystectomy ?Z90.49 - Acquired absence of other specified parts of digestive tract (ICD- 10) Social History (Updated 06/10/24 @ 21:32 by Armando Marvin MD) Narrative: He lives [facility] in his own home. He lives alone. His is in memory care at [facility]. His granddaughter checks with him by phone every day. Code status is full. He does not smoke. He does not drink alcohol. Granddaughter, Hallie Hewitt, is healthcare power of surface water manager What is your current living situation?: I presently have a place to live Problems where you live: no known problems Problems where you live details: n/a In the past 12 months, utilities in danger of being shut off: no In past 12 months, lack of transportation kept you from medical appts, meetings, work, or getting things needed for daily living: no In the past 12 mos, have been you worried that your food would run out before you had money to buy more?: never true In the past 12 mos, the food you bought just didn't last and you didn't have money to buy more?: never true Highest level of school completed/degree received: high school graduate Smoking Status: Never smoker Do you use any of these nicotine containing products: None Second hand tobacco smoke exposure: No How often do you have a drink containing alcohol: never AUDIT-C Alcohol total score: 0 Non-prescribed substance use: denies use How often does anyone, including family, friends and others, physically hurt you : never How often does anyone, including family, friends and others, insult or talk down to you: never How often does anyone, including family, friends and others, threaten you with harm: never How often does anyone, including family, friends and others, scream or curse at you: never service: No Exam Narrative: Exam Narrative: Constitutional: Well-developed, well-nourished, no acute distress. HEENT: Normocephalic, atraumatic. Neck: Normal range of motion. Nontender. Supple. Heart: Intact distal pulses. Lungs: No chest discomfort. No wheezes, rhonchi, or rales. Abdomen: Nontender. Back: Normal range of motion. Extremities: Normal range of motion. No injury. Skin: No rash. Warm. No erythema or pallor. Left proximal forearm has a skin tear that is approximately 6 cm in length. No acute bleeding. Neurologic: No altered sensation. No weakness. Alert and oriented. Psychiatric: No suicidality. No anxiety or depression. No insomnia. Nursing notes and vitals signs are reviewed. Const: Vital Signs, click to edit/add: Vital Signs - 24 hr 07/29/24 11:31 Temperature 97.3 F L Pulse Rate [Right Pulse Oximeter] 89 Respiratory Rate 18 Blood Pressure [Ri ght Upper Arm] 113/78 Pulse Oximetry 96 Oxygen Delivery Me thod Room Air Course Vital Signs Vital signs: Initial Vital Signs Temperature 97.3 F L 07/29/24 11:31 Temperature Source Temporal Artery Scan 07/29/24 11:31 Pulse Rate 89 07/29/24 11:31 Pulse Rhythm Regular 07/29/24 11:31 Pulse Strength 3+ Normal 07/29/24 11:31 Respiratory Rate 18 07/29/24 11:31 Blood Pressure 113/78 07/29/24 11:31 Blood Pressure Mean 89 07/29/24 11:31 Blood Pressure Position Sitting 07/29/24 11:31 Pulse Oximetry 96 07/29/24 11:31 Oxygen Delivery Method Room Air 07/29/24 11:31 Vital Signs Temperature 97.3 F L 07/29/24 11:31 Pulse Rate 89 07/29/24 11:31 Respiratory Rate 18 07/29/24 11:31 Blood Pressure 113/78 07/29/24 11:31 Pulse Oximetry 96 07/29/24 11:31 Oxygen Delivery Method Room Air 07/29/24 11:31 Temperature 97.3 F L 07/29/24 11:31 Pulse Rate 89 07/29/24 11:31 Respiratory Rate 18 07/29/24 11:31 Blood Pressure 113/78 07/29/24 11:31 Pulse Oximetry 96 07/29/24 11:31 Oxygen Delivery Method Room Air 07/29/24 11:31 MDM - Fall MDM Narrative Medical decision making narrative: This patient has a skin tear in his left proximal forearm measuring about 6 cm in length. The wound was cleansed and seeing that is skin turgor is rather thin I recommended Dermabond repair. This was applied with excellent results. A nonstick bandage was then applied and the patient did receive instructions regarding wound care. His tetanus status is up-to-date. Discharge Plan Discharge Clinical Impression: Laceration Patient Disposition: Home, Self-Care Condition: Stable Additional Instructions: Keep wound clean and dry. Follow up with MD return if worsening. Prescriptions: No Action Centrum Silver 0.4 mg-300 mcg- 250 mcg tablet 1 tab PO DAILY Eliquis 5 mg Tablet 5 mg PO BID 30 Days Qty: 60 1RF metoprolol succinate 25 mg capsule,sprinkle,ER 24hr 25 mg PO DAILY Qty: 30 2RF allopurinol 100 mg tablet 200 mg PO DAILY Patient Comments: TAKE TWO TABLETS BY MOUTH DAILY* dapagliflozin propanediol [Farxiga] 5 mg tablet 5 mg PO DAILY Patient Comments: TAKE ONE TABLET BY MOUTH ONE TIME DAILY* rosuvastatin 10 mg tablet 10 mg PO HS Patient Comments: [NO ORIGINAL SIG] sertraline 50 mg tablet 50 mg PO DAILY Patient Comments: [NO ORIGINAL SIG] torsemide 10 mg tablet 10 mg PO DIRECTED PRN Patient Comments: TAKE ONE TABLET BY MOUTH DAILY NEEDED FOR WEIGHT GAIN OF 3LBS OVERNIGHT OR 5LBS OVER THE COURSE OF A WEEK torsemide 5 mg tablet 5 mg PO Q48H Patient Comments: [NO ORIGINAL SIG] Rx Instructions: Take 1 tablet every other day if no weight gain. If weight gain over 2 lbs overnight or over 4lbs in a week, start taking medication every day losartan 25 mg tablet 25 mg PO DAILY Follow Up/Referrals: Aiden Polanco MD [Primary Care Provider] - Stand Alone Forms: [facility] Info Instructions
--- OUTSIDE RECORDS SUMMARY | 2024-07-29 12:24 | XMS_ITS | Referral Summary ---
Author Organization [facility] Address [address] [place] [address] Care Team Providers Care Energy Efficient Site Manager Name Role Phone Delmer Polanco MD Primary Care Provider + Encounters Date Type Department Care Team Description 07/21/2024 3:30 PM CDT Office Visit [facility] [address] [place] [address] Mikael Tyson MD Cerebrovascular accident [...] Plan of Treatment Not on file Insurance [facility] [employer] MEDICARE PART A & B Care Teams Energy Efficient Site Manager Relationship Specialty Start Date End Date Delmer Polanco MD 5 [facility] [place] Cook [phone] PCP - General Family Medicine - 06/24/24
--- OUTSIDE RECORDS SUMMARY | 2024-07-29 12:24 | XMS_ITS | Encounter Summary ---
Author Organization [facility] Address [address] [place] [id number] Care Team Providers Care Cath Lab Nurse Name Role Phone Delmer Polanco MD Primary Care Provider + Reason for Referral * Other (Routine) - Open Specialty Diagnoses / Procedures Referred By Contac t Referred To Contact Diagnoses Cognitive changes Procedures [facility] NEUROLOGY APPOINTMENT Mikael Tyson MD [address] [place] [address] [place] [id number] Phone: tel: fax: Referral ID Status Reason Start Date Expiration Date Visits Re quested Visits Authorized [id number] Open 01/21/2025 1 1 Reason for Visit * Reason Comments Consultation Encounter Details Date Type Department Care Team (Late st Contact Info) Description 07/21/2024 3:30 PM CDT Office Visit [facility] - [address] [place] [phone] Mikael Tyson MD [address] [place] [address] [place] [address] [phone] Cerebrovascular accident (CVA), unspecified mechanism (HCC) (Primary [...] is accompanied by grandson He relates how [email or web address] called the police, but he is relating some police encounter. Grandson clarifies how grandmother was taken out of the home 2 years ago because she had Lewy Body Dementia. This did happen, it was a traumatic event, but unrelated to why he is here. Clarisa notes that he always was one to mumble and be soft-spoken. On June 02, [email or web address] contacted him because he was much more [...] Resource Strain: Low Risk (11/05/2023) [facility] Financial Resource Strain Difficulty of Paying Living Expenses: 3 Difficulty of Paying Living Expenses: Not on file Food Insecurity: No Food Insecurity (11/05/2023) [facility] Food Insecurity Do you worry your food will run out before you are able to buy more?: 1 Transportation Needs: No Transportation Needs (11/05/2023) Received from [facility] [employer] [facility] Transportation Needs Does lack of transportation keep you from medical appointments?: 1 Does lack of transportation keep you from work, meetings or getting things that you need?: 1 Physical Activity: Not on file Stress: Not on file Social Connections: Socially Integrated (11/05/2023) Received from [facility] [employer] [facility] Social Connections Do you often feel lonely or isolated from those around you?: 0 Intimate Partner Violence: Not on file Housing Stability: Low Risk (11/05/2023) [facility] Housing Stability What is your housing situation today?: 1 Family History: No family history on file. Imaging, Tests, Records Reviewed [facility] records TTE (05/2024) - massively enlarged left [...] neuropsych testing but they deferred (unlikely to private branch exchange repairer regardless). He is already working with PT. I also thought OT could be considered, he lives at home alone but there are a number of grandchildren involved apparently and recently hired caregiver as well. So they do not think this is needed. I noted that it would be recommended to call the [facility] social security specialist to see if there wereany further resources [...] clinical information, and communicating with other health youth care professional. Mikael Tyson MD MIPS 3. Patient has had no falls in calendar year - already working with PT documented in this encounter Plan of Treatment Not on file documented as of this encounter Visit Diagnoses Diagnosis Cerebrovascular accident (CVA), unspecified mechanism (HCC)- Primary Cognitive changes Other signs and symptoms involving cognition documented in this encounter Care Teams Cath Lab Nurse Relationship Specialty Start Date End Date Delmer Polanco MD [address] [place] [address] MIRIAN Cook [phone] PCP - General Family Medicine - 06/24/24 documented as of this encounter
--- OUTSIDE RECORDS SUMMARY | 2024-07-29 12:24 | XMS_ITS | Clinical Summary ---
Author Organization [facility] Address [address] [place] [address] Care Team Providers Care Foiling Machine Operator Name Role Phone Delmer Polanco MD Primary [...] Description 07/21/2024 3:30 PM CDT Office Visit [facility] - [address] [place] [phone] Mikael Tyson MD Cerebrovascular accident (CVA), unspecified [...] 03/20/2024, , 01/12/2020, Additional history exists Insurance [facility] [employer] MEDICARE PART A & B Care Teams Foiling Machine Operator Relationship Specialty Start Date End Date Delmer Polanco MD [address] [place] [address] MIRIAN Cook [id number] PCP - General Family Medicine - 06/24/24
== END 2024-07-29 12:27 | disposition home or self-care (01) ==
LOC: ED 12:22
PROVIDERS: Emergency Provider Emergency Medicine Emergency Medical Services; PCP Student in an Organized Health Care Education/Training Program
DX: S51.012A Laceration without foreign body of left elbow, initial encounter (principal); I48.91 Unspecified atrial fibrillation; Z79.01 Long term (current) use of anticoagulants
CPT/HCPCS: 12001; 99282; 99284

== ENCOUNTER 2024-08-26 12:30 | Outpatient (RCR) | payer MEDICARE, BC, SELFPAY ==
--- NOTE | 2024-06-17 10:39 | REH.SLP ---
Speech Language Pathology Discharge Summary Reason for therapy discharge: Discharged to home with OP therapy services. Progress towards therapy goals. Goals not met. See goals in speech therapy notes in [facility] electronic health records. Rehab barriers to achieving goals: discharge from facility. Therapy Recommendations: Continued therapy is recommended for dysphagia and dysarthria management. Recommend outpatient video swallow study to further assess pharyngeal phase of the swallow.
== END 2024-12-24 23:59 | disposition home or self-care (01) ==
PROVIDERS: PCP Student in an Organized Health Care Education/Training Program; Visit Provider Student in an Organized Health Care Education/Training Program
DX: I67.81 Acute cerebrovascular insufficiency (principal); Z91.89 Other specified personal risk factors, not elsewhere classified; Z51.89 Encounter for other specified aftercare
CPT/HCPCS: 97110; 97112; 97161; 97165; 97530; 97535

== ENCOUNTER 2025-02-06 19:33 | Emergency (ER) | payer MEDICARE, BC, SELFPAY ==
--- OUTSIDE RECORDS SUMMARY | 2022-05-18 04:05 | XMS_ITS | Continuity of Care Document ---
Author Organization [facility] Address [address] [address] [place] [address] Phone Care Team Providers Care Ob Gyn Physician Assistant Name Role Phone Jake Wiggins MD Unavailable Unavailable Procedures Procedure Date Init Hosp-da E&m Mod Severity 1 Advance Directives Directive Yes / No Effective Date File Name No Information Encounters Encounter Description Practice Location Reason(s) For Visit Diagnoses Date Provider Providers Copied on Encounter [facility], [address] [address], [place], [place], [id number], [place] tel:[phone] [facility] No Information 3 Feliciano Joseph. [address] [place] [address], [address], [id number] , [place]. [phone] [facility], [address] [address], [place], [place], [id number], [place] tel:[phone] [facility] Pancreas cyst 1 Jeana Oconnell. [address] [place] [address], [address], [id number] , [place]. [phone] Init Hosp-da E&m Mod Severity [facility], [address] [address], [place], [place], [id number], [place] tel:[phone] [facility] No Information 1 Jeana Oconnell. [address] [place] [address], [address], [id number] , [place]. tel:[phone] Referring Provider: Dwain Frank, [address] [place] [address], [address]. tel:[phone] Family History Family Member Type Diagnosis Age At Onset No Information Payers Payer name Insurance type Covered libertarian ID Authoriza tion(s) No Information Social History Type Description Quantity Date Captured Comments Sex Male Smoking Status No Information Chief Complaint And Reason For Visit No Information Reason For Referral Reason For Referral No Information History Of Present Illness Encounter Date Complaint History Of Prese nt Illness No Information Functional Status Date Functional Assessmen t No Information Instructions Date Instruction Additional Infor mation No Information Assessments Type Assessment Date No Information Patient Care Teams Name Effective Dates (start - stop) Status Members No Information
--- OUTSIDE RECORDS SUMMARY | 2022-05-18 04:05 | XMS_ITS | Continuity of Care Document ---
Author Organization [facility] Address [address] [address] [place] [address] Phone Care Team Providers Care Zanjero Name Role Phone Jake Wiggins MD Unavailable Unavailable Procedures Procedure Date Init Hosp-da E&m Mod Severity 1 Advance Directives Directive Yes / No Effective Date File Name No Information Encounters Encounter Description Practice Location Reason(s) For Visit Diagnoses Date Provider Providers Copied on Encounter [facility], [address] [address], [place], [place], [id number], [place] tel:[phone] [facility] No Information 3 Feliciano Joseph. [address] [place] [address], [address], [id number] , [place]. [phone] [facility], [address] [address], [place], [place], [id number], [place] tel:[phone] [facility] Pancreas cyst 1 Jeana Oconnell. [address] [place] [address], [address], [id number] , [place]. [phone] Init Hosp-da E&m Mod Severity [facility], [address] [address], [place], [place], [id number], [place] tel:[phone] [facility] No Information 1 Jeana Oconnell. [address] [place] [address], [address], [id number] , [place]. tel:[phone] Referring Provider: Dwain Frank, [address] [place] [address], [address]. tel:[phone] Family History Family Member Type Diagnosis Age At Onset No Information Payers Payer name Insurance type Covered alliance party ID Authoriza tion(s) No Information Social History [...]
--- OUTSIDE RECORDS SUMMARY | 2025-02-06 19:36 | XMS_ITS | Clinical Summary ---
Author Organization [facility] Address [address] [place] [id number] Care Team Providers Care Reliability Technologist Name Role Phone Delmer Polanco MD Primary Care Provider + Allergies Active Allergy Reactions Criticality Noted Date Comments Morphine Itching 06/13/2006 Oxycodone-Acetaminophen Itching 06/13/2006 Other Reaction(s): Agitation Medications ELIQUIS 5 mg oral tablet TAKE ONE TABLET BY MOUTH TWICE DAILY* Active allopurinol (ZYLOPRIM) 100 mg oral tablet Take 2 tablets (200 mg) by mouth Daily. 06/12/2024 Active FARXIGA 5 mg oral tablet Take 1 tablet (5 mg) by mouth Daily. 05/04/2024 Active losartan (COZAAR) 25 mg oral tablet TAKE ONE TABLET BY MOUTH ONE TIME DAILY* Active metoprolol succinate, XL, (TOPROL XL) 50 mg oral extended release tablet 24 HR Take 1 tablet (50 mg) by mouth Daily. 03/20/2024 Active rosuvastatin (CRESTOR) 10 mg oral tablet Take 1 tablet (10 mg) by mouth Daily. 01/10/2024 Active sertraline (ZOLOFT) 50 mg oral tablet TAKE ONE TABLET BY MOUTH EVERY DAY IN THE MORNING.* Active torsemide (DEMADEX) 5 mg oral tablet Take 1 tablet (5 mg) by mouth Daily. 01/10/2024 Active Active Problems Problem Noted Date Diagnosed Date Gout, unspecified 07/21/2024 Hypertension 07/21/2024 Ischemic stroke 06/16/2024 Overview (07/21/2024): R jorge. 05/2024 Hereditary hemochromatosis 08/06/2022 Chronic atrial fibrillation [...] Vaccines (1 - 1-dose 75+ series) 2021 Medicare Wellness Visit 05/07/2024 05/07/2023, 03/22 COVID-19 Vaccine ( season) 2024 06/18/2020, 05/28/2020 Influenza Vaccine (#1) 2024 5, 02/13/2022, 01/12/2020, Additional history exists Adult Tetanus Booster 12/25/2029 12/26/2019 , 09/22/2010, 12/16/2000, Additional history exists Zoster Vaccine Completed 10/07/2017, 07/16, 07/18/2017, Additional history exists Pneumococcal 50+ Years Completed 3, 11/25/2017, 08/28/2011 Meningococcal B Vaccine Aged Out No l onger eligible based on patient's age to complete this topic Insurance [facility] FED[employer] EM[employer]OYEE MEDICARE PART A & B Care Teams Reliability Technologist Relationship Specialty Start Date End Date Delmer Polanco MD PCP - General Family Medicine - 06/24/24
--- OUTSIDE RECORDS SUMMARY | 2025-02-06 19:36 | XMS_ITS | Clinical Summary ---
Author Organization [facility] Address [address] [place] [address] Care Team Providers Care Manager Corporate Strategy Name Role Phone Clinic, [facility] [place] Unavailable [phone] Aiden Polanco MD Primary Care P rovider Allergies Active Allergy Reactions Criticality Noted Date Comments Morphine Itching 06/13/2006 Oxycodone-Acetaminophen Itching,Agitation 06/13 Medications geriatric multivitamin-iro n-minerals (GERITOL; CENTRUM SILVER) tablet Take 1 Tablet by mouth once daily. 0 03/26/19 23 Active durable medical equipment (DME)Indications :Chronic atrial fibrillation (HC),Bilateral lower extremity edema Compression stockings. 16-20 mmHg. Knee high. 1 Each 04/02/19 23 Active metoprolol succinate (TOPROL XL) 50 mg sustained-releas e tabletIndication s:Atrial fibrillation with RVR (HC) Take 1 Tablet (50 mg) by mouth once daily. 03/20/19 25 Active losartan (COZAAR) 25 mg tabletIndication s:Chronic heart failure with preserved ejection fraction (HC) TAKE ONE TABLET BY MOUTH ONE TIME DAILY 90 Tablet 3 03/27/19 25 Active Farxiga 5 mg tabletIndication s:Chronic systolic heart failure (HC) Take 1 Tablet (5 mg) by mouth once daily. 90 Tablet 1 12/01/19 25 Active rosuvastatin (CRESTOR) 10 mg tabletIndication s:Coronary artery disease, unspecified vessel or lesion type, unspecified whether angina present, unspecified whether [place] or transplanted heart Take 1 Tablet (10 mg) by mouth at bedtime. 90 Tablet 3 12/01/19 25 Active spironolactone 25 mg tabletIndication s:Chronic systolic heart failure (HC) Take 1 Tablet (25 mg) by mouth once daily in the morning. 90 Tablet 12/01/19 25 Active apixaban (ELIQUIS) 5 mg tabletIndication s:Chronic atrial fibrillation (HC) Take 1 Tablet (5 mg) by mouth two times daily. 180 Tablet 1 12/01/19 25 Active allopurinoL (ZYLOPRIM) 100 mg tabletIndication s:History of gout TAKE TWO TABLETS BY MOUTH DAILY 180 Tablet 12/08/19 25 Active torsemide (DEMADEX) 10 mg tabletIndication s:Chronic systolic heart failure (HC),Mitral valve insufficiency, unspecified etiology,Edema, unspecified type Take 1 Tablet (10 mg) by mouth once daily. Take 1 tablet once daily 90 Tablet 3 12/09/19 25 Active sertraline (ZOLOFT) 100 mg tabletIndication s:Depression, recurrent Take 1 Tablet (100 mg) by mouth once daily in the morning. 90 Tablet 1 02/04/20 25 Active sertraline (ZOLOFT) 50 mg tabletIndication s:Depression, recurrent Take 1 Tablet (50 mg) by mouth once daily in the morning. 90 Tablet 3 12/01/19 25 025 Discontin ued(Reord er (E-cancel not sent)) doxycycline monohydrate 100 mg tabletIndication s:bone infection Take 1 Tablet (100 mg) by mouth two times daily. 28 Tablet 12/02/19 25 025 Discontin ued(*Med complete/ Regimen complete/ Level of care change) Active Problems Problem Noted Date Diagnosed Date Peripheral sensory neuropathy 09/24/2024 Ischemic stroke 06/16/2024 Overview (06/16/2024): R frontal. 05/2024 Moderate dementia, unspecifi ed dementia type, unspecified whether behavioral, psychotic, or mood disturbance or anxiety 05/07/2023 Hereditary hemochromatosis 08/06/2022 Chronic atrial fibrillation 01/20/2021 Assessment & Plan (04/02/2022 11:45 AM HADOOP DEVELOPER): Has had RVR recently. Cyst of pancreas [...] failure with preserved ejection fr action 12/27/2020 Stage 3 chronic kidney disease 12/27/2020 Overview (09/29/2024): AI Summary: The patient had chronic kidney disease (CKD) stage 3, with GFR 30-59 ml/min, which was first noted on 12/27/2020. The patient also had stage 3b chronic kidney disease mentioned on 05/07/2023. Home care was consulted for stage 3b chronic kidney disease. 08/11/24: Cr 1.28 mg/dL 08/11/24: GFR 58 mL/min/1.73m2 08/11/24: BUN 28 mg/dL On meds: dapagliflozin, losartan, metoprolol succinate, spironolactone, torsemide Recent encounter dx: 09/24/24: Appointment - [facility] 06/17/24: Appointment - [facility] 05/12/24: Appointment - [facility] 12/12/23: Appointment - [facility] 05/07/23: Appointment - [facility] Recent notes: 09/24/24: Progress Notes - Office visit by Aiden Polanco MD ... [+] Stage 3b chronic kidney disease (HC) 06/17/24: Progress Notes - Nursing Notes by Aiden Polanco MD ... [+] Stage 3b chronic kidney disease (HC) N18.32 AMB CONSULT TO HOME CARE 05/12/24: Progress Notes - Nursing Notes by Allen rCowley MD ... [-] Chronic kidney disease stage III 3. 03/02/24: Progress Notes - INITIAL CLINIC CONSULTATION NOTE by Denise Beckwith MD ... [+] ? Stage 3b chronic kidney disease (HC) 05/07/2023 12/12/23: Progress Notes by Desirae Campos DO ... [+] Stage 3b chronic kidney disease (HC) N18.32 Hypertension Gout, unspecified Resolved Problems Problem Noted Date Diagnosed Date Resolved Date Anticoagulation monitoring, INR range 2-3 11/05/2023 06/17/2024 Elevated ferritin 06/25/2022 03/20/2024 Cognitive impairment 03/27/2022 025 Overview (03/28/2022): LACL administered with pt scoring 5.0 - this level is considered mild cognitive impairment. At this level [id number] problem solving is intact, they may have [...] Encounters Date Type Department Care Team Description 02/03/2025 1:50 PM HADOOP DEVELOPER Office Visit [facility] [address] [place] [address] Aiden Polanco MD Derm Problem (Left Leg/Calf- weeks- wont go away ) 02/02/2025 Travel 01/20/2025 1:30 PM HADOOP DEVELOPER Office Visit [facility] [address] [place] [address] Vinicio Shaw DPM Post-op (6week-right 3rd toe amputation) 01/19/2025 Travel 12/30/2024 1:30 PM CDT Office Visit [facility] [address] [facility] [place] [address] Vinicio Shaw DPAlistair Post-op (DOS 12/15/24/3rd toe amputation/ ) 12/29/2024 Travel 12/23/2024 10:45 AM CDT Orders Only [facility] [address] [place] [address] [place] <No scans attached> 12/23/2024 Telephone [facility] [address] [place] [address] [address] Aiden Polanco MD 12/22/2024 Travel 12/17/2024 1:45 PM CDT Office Visit [facility] [place] [address] [address] [place] [address] Vinicio Shaw DPAlistair Post-op (Right initial post op visit, DOS 12/15/24) 12/16/2024 Travel 12/15/2024 7:00 AM CDT - 12/15/2024 8:10 AM CDT Surgery [facility] [address] [place] [address] Vinicio Shaw DPAlistair AMPUTATION 3rd TOE 12/15/2024 6:09 AM CDT - 12/15/2024 8:20 AM CDT Hospital Encounter [facility] [address] [facility] [place] [address] Vinicio Shaw DPM Discharge Disposition: Home Self Care 12/15/2024 Travel 12/10/2024 2:45 PM CDT Orders Only [facility] [address] [place] [address] [place] <No scans attached> 12/10/2024 Travel 12/10/2024 Telephone [facility] [address] [place] [address] [address] Vinicio Shaw DPAlisatir Surgery Scheduled (12/14) 12/09/2024 Telephone [facility] [place] [id number] [place] [address] [address] [place] [address] Ruth Ku PA Results (K) 12/09/2024 Telephone [facility] [address] [place] [address] Aiden Polanco MD Lab 12/08/2024 2:00 PM CDT Orders Only [facility] [address] [place] [address] [place] Lab 12/08/2024 11:00 AM CDT Office Visit [facility] [address] [facility] [address] Ruth Ku PA Follow Up 12/08/2024 Travel 12/07/2024 E-Visit [facility] [address] [facility] [place] [address] Aiden Polanco MD Preop visit 12/06/2024 Refill [facility] [address] [facility] [place] [address] Aiden Polanco MD Refill Request (Allopurinol) 12/05/2024 Travel 12/01/2024 2:00 PM CDT Office Visit [facility] [address] [facility] [place] [address] Vinicio Shaw DPM Consult (Right 3rd toe osteomyelitis ) 11/30/2024 2:45 PM CDT Ancillary Procedure [facility] [address] [facility] [place] [address] 11/30/2024 1:00 PM CDT Office Visit [facility] [address] [facility] [place] [address] Aiden Polanco MD Foot Problem (Bilateral pain ); Medicare ANNUAL (subsequent) Visit (79 Year Old) 11/30/2024 Telephone [facility] [address] [facility] [place] [address] Vinicio Shaw DPM Appointment Request 11/30/2024 Travel 11/12/2024 11:15 AM CDT Home Care Visit [facility] [address] [place] [address] Christiano Vázquez, POLICE JUSTICE POLICE JUSTICE - OASIS DISCHARGE 11/12/2024 9:15 AM CDT Home Care Visit [facility] [address] [place] [address] Jose M Cavanaugh, OT OT - DISCIPLINE DISCHARGE from Last 3 Months Immunizations Immunization Administration [...] PHQ-2 Answer Date Recorded PHQ-2 TOTAL SCORE 0 11/30/2024 Social Connections Answer Date Recorded Do you often feel lonely or isolated from those around you? 4 02/02/2025 Financial Resource Strain Answer Date R ecorded Difficulty of Paying Living Expenses 3 02/02/2025 Difficulty of Paying Living Expenses Not on file 02/02/2025 Food Insecurity Answer Date Recorded Do you worry your food will run out before you are able to buy more? 1 02/02/2025 Transportation Needs Answer Date Record ed Does lack of transportation keep you from medica l appointments? 1 02/02/2025 Does lack of transportation keep you from work, meetings or getting things that you need? 2 02/02/2025 Housing Stability Answer Date Recorded What is your housing situation today? 1 02/02/2025 Utilities Answer Date Recorded Do you have trouble paying f or utilities (for example, heat, electricity, water, phone)? 1 02/02/2025 Sex and Gender Information Value Date Recorded Sex Assigned at Not on file Legal Sex Male 6:14 AM HADOOP DEVELOPER Gender Identity Not on file Sexual Orientation Not on file Obstetrics History Last Filed Vital Signs Vital Sign Reading Time Taken Comments Blood Pressure 115/80 02/03/2025 2:01 PM HADOOP DEVELOPER Pulse 84 02/03/2025 2:01 PM HADOOP DEVELOPER Temperature 36.2 C (97.1 F) 02/03/2025 2:01 PM HADOOP DEVELOPER Respiratory Rate 16 12/15/2024 8:14 AM CDT Oxygen Saturation 98% 02/03/2025 2:01 PM HADOOP DEVELOPER Inhaled Oxygen Concentration - - Weight 86.8 kg (191 lb 4.8 oz) 02/03/2025 2:01 P M HADOOP DEVELOPER Height 178.5 cm (5' 10.28) 11/30/2024 1:21 PM C DT Body Mass Index 27.23 11/30/2024 1:21 PM CDT Plan of Treatment Upcoming Encounters Date Type Department Care Team (Late st Contact Info) Description 06/02/2025 11:00 AM CDT Ancillary Procedure [facility] [address] [place] [address] 07/20/2025 1:00 PM CDT Office Visit [facility] [address] [facility] [address] Vinicio Shaw DPM [address] [place] [address] Scheduled Procedures Name Priority Associated Diagnoses Date/Ti me SURGICAL PROCEDURE (TYPE PROCEDURE DESCRIPTION BELOW) Tier 2: within 30 days Osteomyelitis of third toe of right foot (HC) Health Maintenance Due Date Last Done Comments RSV vaccine for adults or (1 - 1-dose 75+ series) 2021 Influenza Vaccine (#1) 2024 , 02/13/2022, 01/03/2019, Additional history exists BMI (ht and wt on same day) for age 18+ 11/30/2025 11/30/2024, 09/24/2024, 05/07/2023, Additional history exists Depression screening for age 12+ 12/01/2025 12/01/2024, 11/30/2024, 05/09/2023, Additional history exists Medicare Wellness for age 65+ 12/01/2025 11/30/2024, 05/07/2023, 03/22/2022 Tetanus booster 12/25/2029 12/26/2019, 07/0 10/2010, 12/16/2000, Additional history exists Zoster (shingles) series for age 50+ Completed 10/07/2017, 07/18/2017, 09/28/2010 Hepatitis C screening for age 18-79 Completed 03/22/2022 Pneumococcal series for age 50+ Completed 03/22/2022, 11/25/2017, 08/28/2011 Hepatitis B series for 19+ Aged Out N o longer eligible based on patient's age to complete this topic Procedures Procedure Name Priority Date/Time Associated Diagnosis Comments BASIC METABOLIC PANEL Routine 12/23/2024 11:05 AM CDT Stage 3b chronic kidney disease (HC) PATH TISSUE EXAM Today 12/15/2024 7:14 AM CDT AMPUTATION TOE Class E Urgent: within 7 days 12/15/2024 6:53 AM CDT Osteomyelitis of third toe of right foot (HC) BASIC METABOLIC PANEL Routine 12/10/2024 2:41 PM CDT Chronic systolic heart failure (HC) Hyperkalemia CBC W PLT NO DIFF Routine 12/10/2024 2:3 7 PM CDT Osteomyelitis of right foot, unspecified type (HC) BASIC METABOLIC PANEL Routine 12/08/2024 12:13 PM CDT Chronic systolic heart failure (HC) Mitral valve insufficiency, unspecified etiology Edema, unspecified type XR TOES 3 VIEWS RIGHT JADE 11/30/2024 2:40 PM CDT Peripheral sensory neuropathy Foot ulcer, right, with unspecified severity (HC) C-REACTIVE PROTEIN Add On 11/30/2024 2: 21 PM CDT Osteomyelitis of right foot, unspecified type (HC) BASIC METABOLIC PANEL Routine 11/30/2024 2:21 PM CDT Chronic atrial fibrillation (HC) LC HCV ANTIBODY RFX TO QUANT PCR Routine 03/22/2022 11:13 AM HADOOP DEVELOPER Need for hepatitis C screening test from Last 3 Months or Most Recently Relevant to Health Maintenance Results * (ABNORMAL) BASIC METABOLIC PANEL (12/23/2024 11:05 AM CDT) Only the most recent of4 resultswithin the time period is included. SODIUM 140 135 - 146 mmol/L 12/24/2024 7:14 AM CDT [facility] POTASSIUM 4.9 3.5 - 5.3 mmol/L 12/24/2024 7:14 AM CDT [facility] CARBON DIOXIDE 29 20 - 32 mmol/L 12/24/2024 7:14 AM CDT [facility] GLUCOSE 76 65 - 99 mg/dL 12/24/2024 7:14 AM CDT [facility] Comment: Fasting reference interval CALCIUM 9.4 8.6 - 10.3 mg/dL 12/24/2024 7:14 AM CDT [facility] CREATININE 1.35(H) 0.70 - 1.28 mg/dL 12/24/2024 7:14 AM CDT [facility] BUN/CREATININE RATIO 21 6 - 22 (calc) 12/24/2024 7:14 AM CDT [facility] EGFR 54(L) > OR = 60 mL/min/1. 73m2 12/24/2024 7:14 AM CDT [facility] UREA NITROGEN (BUN) 29(H) 7 - 25 mg/dL 12/24/2024 7:14 AM CDT [facility] ELECTROLYTE BALANCE 5(L) 7 - 17 mmol/L (calc) 12/24/2024 7:14 AM CDT [facility] CHLORIDE 106 98 - 110 mmol/L 12/24/2024 7:14 AM CDT [facility] Blood BLOOD SPECIMEN / Unknown [facility] / Unknown 12/23/2024 11:05 AM CDT 12/23/2024 11:05 AM CDT us Aiden Polanco MD CHEMISTRY Final Result [facility] [address] [address], * PATH TISSUE EXAM (12/15/2024 7:14 AM CDT) Case Report Pathology Report Case: [id number] Authorizing Provider: Vinicio Shaw DPM Collected: 12/15/2024 0714 Ordering Location: [facility] Received: 12/15/[address] [place] [address] Pathologist: Ramana Goode MD Specimen: Right 3rd Toe 12/21/2024 11:39 AM CDT [email or web address] Final Diagnosis A) DIGIT, RIGHT THIRD TOE, AMPUTATION: 1. Ulcerated toe with the following: a. Underlying bone with remodeling and focal areas of scalloping with scattered neutrophils, compatible with acute osteomyelitis b. Viable skin and soft tissue margins c. Intact articular surface 2. Negative for malignancy 12/21/2024 11:39 AM CDT [email or web address] at 1139 CDT Clinical Information Osteomyelitis third toe right 12/21/2024 11:39 AM CDT [facility] Gross Description A) Received in formalin, labeled with the patient's name and right third toe, is a 5.5 x 2.6 x 2.2 cm distal toe amputation specimen. It is disarticulated at the MIP joint which exhibits a smooth cartilaginous surface. There is a 0.7 x 0.7 cm ulcerative lesion with scab on the plantar surface. The lesion is 2.0 cm from the nearest soft tissue margin which is inked blue. The cut surface of the underlying bone is hard. Facility Engineer sections are submitted: 1. Skin lesion with underlying bone after decalcification, cross-section 2. Skin and soft tissue margin, perpendicular TRS 12/16/2024 12/21/2024 11:39 AM CDT [facility] Microscopic Description The final diagnosis is based on microscopic examination of appropriate sections of all specimens. Additional levels were examined. 12/21/2024 11:39 AM CDT [facility] Additional Information Interpreted at [facility] - [address] [place] [address] 12/21/2024 11:39 AM CDT [facility] Tissue (Right 3rd Toe) 12/15/2024 7:14 AM CDT 12/15/2024 8:28 AM CDT Vinicio Shaw DPM PATHOLOGY/CYTOLOGY Final Result [facility] [address] [place] [address], * (ABNORMAL) CBC W PLT NO DIFF (12/10/2024 2:37 PM CDT) WHITE BLOOD CELL COUNT 7.8 3.8 - 10.8 Thousand/ uL 12/11/2024 3:30 AM CDT [facility] RED BLOOD CELL COUNT 4.45 4.20 - 5.80 Million/u L 12/11/2024 3:30 AM CDT [facility] HEMOGLOBIN 15.7 13.2 - 17.1 g/dL 12/11/2024 3:30 AM CDT [facility] HEMATOCRIT 46.9 38.5 - 50.0 % 12/11/2024 3:30 AM CDT [facility] MCV 105.4(H) 80.0 - 100.0 fL 12/11/2024 3:30 AM CDT [facility] MCH 35.3(H) 27.0 - 33.0 pg 12/11/2024 3:30 AM CDT [facility] MCHC 33.5 32.0 - 36.0 g/dL 12/11/2024 3:30 AM CDT [facility] Comment: For adults, a slight decrease in the calculated MCHC value (in the range of 30 to 32 g/dL) is most likely not clinically significant; however, it should be interpreted with caution in correlation with other red cell parameters and the patient's clinical condition. RDW 12.5 11.0 - 15.0 % 12/11/2024 3:30 AM CDT [facility] PLATELET COUNT 156 140 - 400 Thousand/ uL 12/11/2024 3:30 AM CDT [facility] MPV 10.0 7.5 - 12.5 fL 12/11/2024 3:30 AM CDT [facility] Blood BLOOD SPECIMEN / Unknown [facility] / Unknown 12/10/2024 2:37 PM CDT 12/10/2024 2:37 PM CDT Aiden Polanco MD HEMATOLOGY Final Result [facility] [address] [address], * XR TOES 3 VIEWS RIGHT (11/30/2024 2:40 PM CDT) Anatomical Region Laterality Modality TOES Computed Radiogr aphy 11/30/2024 3:05 PM CDT Narrative 11/30/2024 3:05 PM CDT For Patients: As a result of the Cures Act, medical imaging exams and procedure reports are released immediately into your electronic medical record. You may view this report before your referring provider. If you have questions, please contact your health care provider. Indication: Foot ulcer Technique: Three views right 3rd toe Comparison: None Findings: Destructive changes are present involving the 3rd toe distal phalanx with loss of the volar aspect of the cortex with associated periostitis. Chronic appearing dorsal density at the distal interphalangeal joint. Overlying soft tissue swelling. Middle phalanx is likely intact. Vascular calcifications. Impression: Osteomyelitis of the 3rd toe distal phalanx. Dictated by Ramana Bass MD @ 11/30/2024 3:05:26 PM (Electronically Signed) Procedure Note Ramana Bass MD - 11/30/2024 For Patients: As a result of the Cures Act, medical imagingexams and procedure reports are released immediately into your electronicmedical record. You may view this report before your referring provider.If you have questions, please contact your health care provider. Indication: Foot ulcer Technique: Three views right 3rd toe Comparison: None Findings: Destructive changes are present involving the 3rd toe distal phalanx withloss of the volar aspect of the cortex with associated periostitis.Chronic appearing dorsal density at the distal interphalangeal joint.Overlying soft tissue swelling. Middle phalanx is likely intact. Vascularcalcifications. Impression: Osteomyelitis of the 3rd toe distal phalanx. Dictated by Ramana Bass MD @ 11/30/2024 3:05:26 PM (Electronically Signed) Aiden Polanco MD GENERAL IMAGING Final Result * C-REACTIVE PROTEIN (11/30/2024 2:21 PM CDT) C-REACTIVE PROTEIN (MG/L) 6.3 <8.0 mg/L 12/02/2024 12:23 PM CDT [facility] Blood BLOOD SPECIMEN / Unknown [facility] / Unknown 11/30/2024 2:21 PM CDT 11/30/2024 2:21 PM CDT Aiden Polanco MD CHEMISTRY Final Result [facility] [address] [place] [address], [place] [phone] * LC HCV ANTIBODY RFX TO QUANT PCR (03/22/2022 11:13 AM HADOOP DEVELOPER) HCV Ab <0.1 0.0 - 0.9 s/co ratio 03/24/2022 2:07 PM HADOOP DEVELOPER [facility] Blood BLOOD SPECIMEN / Unknown Venipuncture / Unknown 03/22/2022 11:13 AM HADOOP DEVELOPER 03/22/2022 11:16 AM HADOOP DEVELOPER Narrative [facility] - 03/24/2022 2:07 PM HADOOP DEVELOPER Performed at: [address] [place] [address] [place] [id number] Barrel Leveler: Hany Tello MD, Phone: [phone] us Desirae Campos DO LABORATORY Final Result [facility] [place] [address], from Last 3 Months or Most Recently Relevant to Health Maintenance Insurance MEDICARE PB ONLY MEDICARE PART B HB ONLY MEDICARE PART A HB ONLY [place] MEDICARE PPS Advance Directives Documents on File Type Date Recorded Patient Facility Engineer Expl anation POLST 04/06/2022 1:45 PM POLST Healthcare Directive 04/06/2022 ASHLEY VELA, 04/06/2022 * DNR (Latest Code Status on File) Date Activated Date Inactivated Comments 12/15/2024 6:38 AM 12/15/2024 10:31 AM Question Answer Comments Code Status Discussion: Reviewed Preferences * Full Code Date Activated Date Inactivated Comments 03/27/2022 4:16 [...] Comments Code Status Discussion: Per Existing Order Care Teams Manager Corporate Strategy Relationship Specialty Start Date End Date Aiden Polanco MD [address] [place] [address] PCP - General Family Practice 01/10/24 Clinic, [facility] [address] [place] [address] Cardiology - CHF 02/11/23
[2025-02-06 19:38] VITALS: BP 110/74; PULSE 87; RESP 16; TEMP 36.1; O2SAT 95; BMI 27.5
--- NOTE | 2025-02-06 20:04 | ED.GENADULT ---
HPI - General Adult General Chief complaint: Laceration/Wound Stated complaint: Fall, Arm Laceration (RT) Time Seen by Provider: 02/06/25 20:03 History of Present Illness HPI narrative: Pt fell around 1600. Pt used right forearm to prevent from falling. Forearm has a laceration, bleeding controlled. Pt is on a blood thinner. 79-year-old man presenting to the emergency department accompanied by his son following what sounds like a mechanical fall. Has sustained laceration to his right forearm. Son says it looks pretty bad. Mr. Jules denies any other injuries or pain. Denies hitting his head. No chest pain or shortness of breath. History of anticoagulation for atrial fibrillation. On exam apparent that he has tried to get it to stop bleeding on his own. There is debris within the wound from paper towels. Related Data Home Medications ?Medication ?Instructions ?Recorded ?Confirmed allopurinol 100 mg tablet 200 mg PO DAILY 01/20/24 07/29/24 dapagliflozin propanediol 5 mg 5 mg PO DAILY 01/20/24 07/29/24 tablet (Farxiga) rosuvastatin 10 mg tablet 10 mg PO HS 01/20/24 07/29/24 sertraline 50 mg tablet 50 mg PO DAILY 01/20/24 07/29/24 torsemide 10 mg tablet 10 mg PO DIRECTED PRN 01/20/24 07/29/24 torsemide 5 mg tablet 5 mg PO Q48H 01/20/24 06/11/24 fuvngofy-ilf-hiayd acid 0.4 1 tab PO DAILY 06/11/24 07/29/24 mg-lycopene 300 mcg-lutein 250 mcg tablet (Centrum Silver) losartan 25 mg tablet 25 mg PO DAILY 07/29/24 07/29/24 Previous Rx's ?Medication ?Instructions ?Recorded apixaban 5 mg tablet (Eliquis) 5 mg PO BID 30 days #60 tabs 06/12/24 metoprolol succinate 25 mg capsule 25 mg PO DAILY #30 ea 06/12/24 sprinkle, ext. release 24 hr Allergies Allergy/AdvReac Type Severity Reaction Status Date / Time morphine Allergy Mild itchy Verified 07/29/24 11:37 latex Allergy Unknown Verified 07/29/24 11:37 OXYCODONE-ACETAMINOPHEN Allergy Intermediate increased Uncoded 06/10/24 18:42 anxiety Pain Meds AdvReac Mild anxious Uncoded 06/10/24 18:42 Review of Systems Status of ROS: Reports: 6 or more systems reviewed and unremarkable except as noted in History and below [facility] Medical History Swallowing difficulty ?R13.10 - Dysphagia, unspecified (ICD-10) Counseling regarding advanced directives (08/28/17) ?Z71.89 - Other specified counseling (ICD-10) Long-term (current) use of anticoagulants, INR goal 2.0-3.0 ?Z79.01 - half-way (current) use of anticoagulants (ICD-10) Abdominal hernia ?K46.9 - Unspecified abdominal hernia without obstruction or gangrene (ICD-10) Anticoagulation goal of INR 2 to 3 ?Z51.81 - Encounter for therapeutic drug level monitoring (ICD-10) ?Z79.01 - long term care phlebotomist (current) use of anticoagulants (ICD-10) Anxiety ?F41.9 - Anxiety disorder, unspecified (ICD-10) Gastritis ?K29.70 - Gastritis, unspecified, without bleeding (ICD-10) Gout ?M10.9 - Gout, unspecified (ICD-10) Hemochromatosis (2008) ?E83.119 - Hemochromatosis, unspecified (ICD-10) Hypertension ?I10 - Essential (primary) hypertension (ICD-10) Small bowel obstruction due to adhesions ?K56.50 - Intestinal adhesions [bands], unspecified as to partial versus complete obstruction (ICD-10) Atrial fibrillation ?I48.91 - Unspecified atrial fibrillation (ICD-10) Heart failure with preserved ejection fraction ?I50.30 - Unspecified diastolic (congestive) heart failure (ICD-10) History of fracture of left ankle (2000) ?Z87.81 - Personal history of (healed) traumatic fracture (ICD-10) History of basal cell carcinoma (BCC) (07/17/18) ?Z85.828 - Personal history of other malignant neoplasm of skin (ICD-10) Surgical History History of umbilical hernia repair (04/15/15) ?Z98.890 - Other specified postprocedural states (ICD-10) ?Z87.19 - Personal history of other diseases of the digestive system (ICD-10) History of mitral valve repair (12/30/20) ?Z98.890 - Other specified postprocedural states (ICD-10) History of cholecystectomy ?Z90.49 - Acquired absence of other specified parts of digestive tract (ICD-10) Social History Narrative: He lives [facility] in his own home. He lives alone. His is in memory care at [facility]. His granddaughter checks with him by phone every day. Code status is full. He does not smoke. He does not drink alcohol. Granddaughter, Hallie Hewitt, is healthcare power of document review attorney What is your current living situation?: I presently have a place to live Problems where you live: no known problems Problems where you live details: n/a In the past 12 months, utilities in danger of being shut off: no In past 12 months, lack of transportation kept you from medical appts, meetings, work, or getting things needed for daily living: no In the past 12 mos, have been you worried that your food would run out before you had money to buy more?: never true In the past 12 mos, the food you bought just didn't last and you didn't have money to buy more?: never true Highest level of school completed/degree received: high school graduate Smoking Status: Never smoker Do you use any of these nicotine containing products: None Second hand tobacco smoke exposure: No How often do you have a drink containing alcohol: never AUDIT-C Alcohol total score: 0 Non-prescribed substance use: denies use How often does anyone, including family, friends and others, physically hurt you: never How often does anyone, including family, friends and others, insult or talk down to you: never How often does anyone, including family, friends and others, threaten you with harm: never How often does anyone, including family, friends and others, scream or curse at you: never service: No Exam Narrative: Exam Narrative: Pleasant. NAD. Hard of hearing. Some blunted affect I think consistent with CVA or dementia. Head looks atraumatic. Initial swelling at the left parietal scalp I thought was injury but this is actually large sebaceous cyst without inflammatory change. Neck is supple nontender. Back nontender. No pain to palpation over the clavicles or shoulders. Breathing easily. Injuries appear to be limited to the right forearm which has been wrapped. Removing this wrap shows large area of dried blood. Three and half to 4 in laceration that I think is primarily a skin tear on the proximal right forearm. Smaller scabbed about 1 1 quarter-inch laceration below that. Well-perfused peripherally. Not actively bleeding at this time. Const: Vital Signs, click to edit/add: Vital Signs - 24 hr 02/06/25 19:38 Temperature 97.0 F L Pulse Rate [Pulse Oximeter] 87 Respiratory Rate 16 Blood Pressure [Ri t Upper Arm] 110/74 Pulse Oximetry 95 Oxygen Delivery Me thod Room Air Documenting provider has reviewed patient's vital signs: yes Course Vital Signs Vital signs: Initial Vital Signs Temperature 97.0 F L 02/06/25 19:38 Temperature Source Temporal Artery Scan 02/06/25 19:38 Pulse Rate 87 02/06/25 19:38 Pulse Rhythm Regular 02/06/25 19:38 Respiratory Rate 16 02/06/25 19:38 Blood Pressure 110/74 02/06/25 19:38 Blood Pressure Mean 86 02/06/25 19:38 Blood Pressure Position Sitting 02/06/25 19:38 Pulse Oximetry 95 02/06/25 19:38 Oxygen Delivery Method Room Air 02/06/25 19:38 Vital Signs Temperature 97.0 F L 02/06/25 19:38 Pulse Rate 87 02/06/25 19:38 Respiratory Rate 16 02/06/25 19:38 Blood Pressure 110/74 02/06/25 19:38 Pulse Oximetry 95 02/06/25 19:38 Oxygen Delivery Method Room Air 02/06/25 19:38 Temperature 97.0 F L 02/06/25 19:38 Pulse Rate 87 02/06/25 19:38 Respiratory Rate 16 02/06/25 19:38 Blood Pressure 110/74 02/06/25 19:38 Pulse Oximetry 95 02/06/25 19:38 Oxygen Delivery Method Room Air 02/06/25 19:38 Medical Decision Making MDM Narrative Medical decision making narrative: Did place moist wraps on the arm so that could better assess. This does not appear to have been a fall as described or recalled by Mr. Jules, beyond a trip and fall event. Does not appear to necessitate imaging of any extremities either. After period of soaking returned and able to investigate further. Removing paper towel debris. I do spend some time cleaning this wound with Shur-Clens solution. Trimmed away excess damaged skin and tried to arrange the remainder of best I could. Cannot improve with suturing. This is all primarily partial dermal though middle lower aspect does have a little more oozing of blood that was controlled with a spot of G[place]. Placed antibiotic ointment and Telfa and then gauze wrap. Tolerated well. Given dressing supplies See patient discharge plan for further discussion I would remove this dressing in 2 days. If it is sticking you might have to soak it off or spray water on it in some form. Change dressing daily with antibiotic ointment and nonstick/Telfa then over the next week. Can maybe go to a dry protective dressing in a week to 10 days. Watch for spreading redness after 2 days, marked increase in swelling, pain, redness or any purulent drainage. Medical Records Medical records reviewed: Yes I reviewed the patient's medical records Discharge Plan Discharge Clinical Impression: Skin tear of right upper extremity Patient Disposition: Home w/ Parent or Adult Condition: Improved Instructions: Laceration (ED) Additional Instructions: I would remove this dressing in 2 days. If it is sticking you might have to soak it off or spray water on it in some form. Change dressing daily with antibiotic ointment and nonstick/Telfa then over the next week. Can maybe go to a dry protective dressing in a week to 10 days. Watch for spreading redness after 2 days, marked increase in swelling, pain, redness or any purulent drainage. Prescriptions: No Action Centrum Silver 0.4 mg-300 mcg- 250 mcg tablet 1 tab PO DAILY Eliquis 5 mg Tablet 5 mg PO BID 30 Days Qty: 60 1RF metoprolol succinate 25 mg capsule,sprinkle,ER 24hr 25 mg PO DAILY Qty: 30 2RF allopurinol 100 mg tablet 200 mg PO DAILY Patient Comments: TAKE TWO TABLETS BY MOUTH DAILY* dapagliflozin propanediol [Farxiga] 5 mg tablet 5 mg PO DAILY Patient Comments: TAKE ONE TABLET BY MOUTH ONE TIME DAILY* rosuvastatin 10 mg tablet 10 mg PO HS Patient Comments: [NO ORIGINAL SIG] sertraline 50 mg tablet 50 mg PO DAILY Patient Comments: [NO ORIGINAL SIG] torsemide 10 mg tablet 10 mg PO DIRECTED PRN Patient Comments: TAKE ONE TABLET BY MOUTH DAILY NEEDED FOR WEIGHT GAIN OF 3LBS OVERNIGHT OR 5LBS OVER THE COURSE OF A WEEK torsemide 5 mg tablet 5 mg PO Q48H Patient Comments: [NO ORIGINAL SIG] Rx Instructions: Take 1 tablet every other day if no weight gain. If weight gain over 2 lbs overnight or over 4lbs in a week, start taking medication every day losartan 25 mg tablet 25 mg PO DAILY Follow Up/Referrals: Aiden Polanco MD [Primary Care Provider, Family Practice] Stand Alone Forms: [facility] Info Instructions
== END 2025-02-06 21:29 | disposition home or self-care (01) ==
PROVIDERS: Emergency Provider Family Medicine; PCP Student in an Organized Health Care Education/Training Program
DX: S51.811A Laceration without foreign body of right forearm, initial encounter (principal); W19.XXXA Unspecified fall, initial encounter
CPT/HCPCS: 99282; 99283; 99284